=== PATIENT | male | born 1945 | race Caucasian/White ===

== ENCOUNTER → 2019-04-23 10:07 | Outpatient (BNVA) | payer MEDICARE, SELFPAY | PROVIDERS: Family Provider Family Medicine; PCP Family Medicine; Visit Provider Internal Medicine Nephrology | DX: N18.4 Chronic kidney disease, stage 4 (severe) (principal) | CPT/HCPCS: 80069; 82044; 82310; 83970 ==

== ENCOUNTER → 2019-06-16 11:12 | Day surgery (SDC) | payer MEDICARE, SELFPAY ==
[2019-06-16] VITALS (7 sets, daily range): BP systolic 131–189; BP diastolic 84–109; PULSE 55–63; RESP 16–18; TEMP 36.5; O2SAT 99–100; BMI 17.4
--- NOTE | 2019-06-16 11:43 | PC.NURSE ---
PRE OP NOTE THE EXISTING LOOP RECORDER SITE HAS A DIME SIZED BLUE AREA OVER IT. NO DRAINAGE NOTED.
--- NOTE | 2019-06-16 11:50 | PC.NURSE ---
PRE OP NOTE ON INTAKE ASSESSMENT THE PATIENT STATED THAT HE HAD NOT HELD HIS ELIQUIS. DR PENA WAS NOTIFIED AND STATED THAT IS WAS OK TO PROCEED WITH THE PROCEDURE.
--- NOTE | 2019-06-16 11:53 | PC.NURSE ---
PRE OP NOTE DR PENA CALLED THIS NURSE BACK AND STATED THAT THE PATIENT SHOULD HAVE BEEN TOLD TO HOLD THEIR ELIQUIS THIS AM. HE STATED TO HOLD OFF ON TAKING THE PATIENT TO THE SHEEP SHEARER UNTIL HE TALKS TO HIM.
--- NOTE | 2019-06-16 12:00 | PC.NURSE ---
PRE OP NOTE DR PENA HERE TO SPEAK TO THE PATIENT. WILL PROCEDURE WITH THE REMOVAL.
--- NOTE | 2019-06-16 12:00 | PC.NURSE ---
PRE OP NOTE
--- NOTE | 2019-06-16 12:29 | P.OP_ITS ---
Operative Report Date of procedure: June 16, 2019 Pre-op Diagnosis: ICM placement, skin erosion with a focal cellulitis Post-op diagnosis: same Post-op Findings: The skin was eroded. Minimal inflammation. No abscess in the ICD pocket. Procedure Done: Explantation of the ICM Implants: The ICM was extracted from the pocket with a small rogelio in the skin Specimens removed/disposition: Reveal LINQ Model number: [id number] Serial number: [id number] Make: Medtronic Date of implantation 06/06/2017 Pathology: none sent Surgeon: Clintno Clark Machinery Erector: Karlie Bañuelos Anesthesia: Local (1% lidocaine) Estimated blood loss (mL): 0 Tourniquet time (min): 0 IV fluids (mL): 0 Complications: None Findings: The device was eroding the skin. There was some focal cellulitis. No pus collection or any discharges noted Condition: stable Disposition: other (Home) Brief History: This is a 74-year-old white male who had a ICM placement on 06/06/2017 for recurrent syncope. He presented to the office on recently with complaints of some redness of the skin at the ICM insertion site. The device was bulging out with some skin erosion. Also had features of focal cellulitis. He was prescribed Keflex at the office. He did not have any fever or chills. I was consulted to remove this device. Patient did not have any other specific complaints. Procedure: Patient was brought to the cardiac Cnc Mill And Lathe Operator. The ICM incision site was cleaned and draped in a sterile fashion. 1% Xylocaine was used as a local anesthetic agent. The ICM was extracted from the subcutaneous pocket. There was a focal area of skin erosion. The pocket copiously irrigated with vancomycin solution. Minimal oozing of blood was controlled with manual pressure. After complete hemostasis, triple antibiotic ointment was applied locally. Sterile gauze dressing was given. Patient tolerated the procedure well and there were no complications
--- NOTE | 2019-06-16 12:30 | PC.NURSE ---
Procedure complete Loop recorder removed and pt back to room. Dressed with sterile dressing per Dr Clark orders. Pt tolerated well, no c/o pain. Will monitor.
[2019-06-16] MEDS: isosorbide mononitrate ER 30 mg Tablet 15 MG PO (13:04)
--- NOTE | 2019-06-16 14:47 | PC.NURSE ---
Discharge instructions Discharge instructions given to patient at this time, verbalized understanding. Dressing to L subclavian incision removed and redressed per Dr Clark's orders. No bleeding or hematoma noted. Pt walked to [facility] and discharged home via private vehicle.
== END | disposition home or self-care (01) ==
PROVIDERS: Family Provider Family Medicine; PCP Family Medicine; Visit Provider Internal Medicine Cardiovascular Disease
PROC: (CPT 33286; principal; 2019-06-16 12:00)
DX: T82.7XXA Infection and inflammatory reaction due to other cardiac and vascular devices, implants and grafts, initial encounter (principal); I48.91 Unspecified atrial fibrillation; N40.0 Benign prostatic hyperplasia without lower urinary tract symptoms; E03.9 Hypothyroidism, unspecified; I12.9 Hypertensive chronic kidney disease with stage 1 through stage 4 chronic kidney disease, or unspecified chronic kidney disease; N18.9 Chronic kidney disease, unspecified; F32.9 Major depressive disorder, single episode, unspecified; Z82.49 Family history of ischemic heart disease and other diseases of the circulatory system; F17.210 Nicotine dependence, cigarettes, uncomplicated
CPT/HCPCS: 12345; 33284; C1769; J2001; J7050

== ENCOUNTER → 2019-07-21 09:25 | Outpatient (BNVA) | payer MEDICARE, SELFPAY | PROVIDERS: Family Provider Family Medicine; PCP Family Medicine; Visit Provider Internal Medicine | DX: N18.3 Chronic kidney disease, stage 3 (moderate) (principal) | CPT/HCPCS: 80069; 81000; 82044; 82310; 83970; 84460 ==

== ENCOUNTER 2019-07-28 20:29 | Emergency (ER) | payer MEDICARE, SELFPAY ==
[2019-07-28 20:33] VITALS: BP 155/84; PULSE 84; RESP 18; TEMP 36.6; O2SAT 100; BMI 17.5
--- NOTE | 2019-07-28 20:34 | XR_ITS ---
WS: [id number] PORTABLE CHEST HISTORY: high bp COMPARISON: 05/01/2017 Pulmonary hyperexpansion. No pneumonia or mass. Normal vasculature. No pleural effusion or pneumothor ax. Cardiac size: Normal. Mediastinum/Aorta: Ectatic aorta. Partial calcification at the arch. No osseous abnormality seen. XR/XR chest 1V portable [id number] IMPRESSION: 1. Chronic emphysema with no pneumonia. 2. Partially calcified aorta.
--- NOTE | 2019-07-28 20:36 | W.ED.GENADLT ---
HPI - General Adult General: Chief complaint: General Medical Stated complaint: high bp Time Seen by Provider: 07/28/19 20:33 Source: patient Mode of arrival: ambulatory Limitations: no limitations History of Present Illness: HPI narrative: 74-year-old male patient comes in today for complaints of headache with elevated blood pressure. Patient had a elevated blood pressure of 190 systolic and a headache with it. Patient had not taken his blood pressure medication yet he took his medication and then came to the hospital. Patient reports that he continues to have a headache with the pain of 7 out of 10. When asked if patient want something for his pain he did request something. Patient has a history of end-stage renal failure, depression, allergic rhinitis, neuropathy, hypertension. Patient appears chronically ill. Patient appears in mild pain. Associated symptoms: Reports headache(s) Review of Systems General: Reports: 10 or more systems reviewed and unremarkable except in HPI and below Neuro: Reports: headache [facility] ED PFSH: Social History Smoking and tobacco status: current every day smoker History of recent travel: No Physical Exam Const: COMMON NORMALS: no apparent distress and oriented x3 GENERAL APPEARANCE: cooperative HENMT: COMMON NORMALS: normocephalic, TM's normal bilaterally and external nose normal HEAD & SCALP: normal to inspection and normocephalic NOSE: external nose normal TYMPANIC MEMBRANE: TM's normal bilaterally MOUTH: oral and palatal mucosa normal THROAT: posterior oropharynx normal Eye: GENERAL EYE: normal appearance of both eyes Neck/C-Spine: COMMON NORMALS: full ROM Lymph: LYMPHATIC: no lymphadenopathy noted Chest: COMMONS NORMALS: inspection of chest normal Resp: COMMON NORMALS: normal respiratory effort EFFORT & INSPECTION: Yes able to speak in complete sentences Cardio: COMMON NORMALS: regular rate and regular rhythm RATE: regular rate RHYTHM: regular rhythm GI: COMMON NORMALS: non-tender : COMMON NORMALS: Yes no CVA tenderness BLADDER/KIDNEY EXAM: Yes no CVA tenderness Back/Pelvis: COMMON NORMALS: no CVA tenderness and thoracic and lumbar spine normal to inspection Extremity: COMMON NORMALS: normal to inspection Neuro: COMMON NORMALS: oriented x3 and moves all extremities Psych: COMMON NORMALS: mental status grossly normal and cooperative Skin: COMMON NORMALS: no rashes or lesions noted GENERAL SKIN EXAM: no rashes or lesions noted Course Vital Signs: Vital signs: Vital Signs Temperature 97.8 F 07/28/19 20:33 Pulse Rate 84 07/28/19 20:33 Respiratory Rate 18 07/28/19 20:33 Blood Pressure 155/84 07/28/19 20:33 Pulse Oximetry 100 07/28/19 20:33 MDM - General Adult MDM Narrative: Medical decision making narrative: Patient came in tonight for concerns of high blood pressure and headache. Exam noted no focal neural deficits. Patient moves all extremities well. Abdomen soft nontender. Auscultation of heart tones was normal. Skin is warm and dry. Vital signs are normal except for elevated blood pressure. EKG showed a sinus rhythm with some left ventricular hypertrophy. Chest x-ray noted emphysema. CT scan of the head showed no acute abnormalities. Laboratory values showed some renal dysfunction with a creatinine 3.3 which seems to be patient's baseline. Blood glucose was 120. Patient was anemic with 8.4 and 26 hemoglobin probably related to patient's chronic kidney disease. Troponin was slightly elevated in the 40s we repeated the second 1 in 2 hours and it dropped to the mid 30s. With a delta being negative. Discussed with patient the abnormalities of his labs and recommendations for treatment and need for follow-up. Patient reported understanding agreed to plan. Differential diagnosis included ACS, CVA, intracranial hemorrhage, chronic kidney disease, malignant hypertension, emergent hypertensive crisis. Patient felt better and had resolution of headache with better control of blood pressure prior to discharge. Lab Data: Labs: Lab Results 07/28/19 07/28/19 07/28/19 Range/Units 20:43 20:43 20:43 WBC 5.3 (4.0-10.0) 10^3/ uL RBC 2.60 L (4.1-5.3) 10^6/u L Hgb 8.4 L (11.7-16.6) g/dL Hct 26.6 L (42.0-52.0) % MCV 102.3 H (80-94) fL MCH 32.3 (28.0-34.0) pg MCHC 31.6 (30.0-36.0) g/dL RDW 12.4 (12.1-15.1) % Plt Count 165 (130-400) 10^3/c mm MPV 10.3 (7.4-10.4) fL Neut % (Auto) 60.6 % Lymph % (Auto) 24.8 % [place] % (Auto) 10.2 % Eos % (Auto) 4.0 % Baso % (Auto) 0.2 % Neut # (Auto) 3.2 (1.8-7.7) 10^3/u L Lymph # (Auto) 1.3 (0.8-4.8) 10^3/u L [place] # (Auto) 0.5 (0.2-0.9) 10^3/u L Eos # (Auto) 0.2 (0.0-0.8) 10^3/u L Baso # (Auto) 0.0 (0.0-0.1) 10^3/u L Nucleated RBC % (a uto) 0 % Nucleated RBCs # 0.0 /100WBC Sodium 139 (136-145) mmol/L Potassium 4.5 (3.5-5.1) mmol/L Chloride 107 (98-107) mmol/L Carbon Dioxide 19 L (22-29) mmol/L Anion Gap 17.5 (5-19) BUN 46 H (8-23) mg/dL Creatinine 3.3 H (0.7-1.2) mg/dL Glucose 120 H (65-115) mg/dL Calculated Osmolal ity 287 (285-295) mOsm/k g Calcium 9.3 (8.5-10.5) mg/dL Total Bilirubin 0.2 (0.15-1.2) mg/dL AST 18 (0-40) U/L ALT 11 (0-41) U/L Alkaline Phosphata se 60 (40-130) IU/L Troponin T Baselin e 40 H (0-15) ng/mL Troponin T 120 Min [place] (0-15) ng/mL Total Protein 6.5 L (6.6-8.7) g/dL Albumin 4.2 (3.5-5.2) g/dL Globulin 2.3 (1.3-4.6) g/dL 07/28/19 Range/Units 22:36 WBC (4.0-10.0) 10^3/ uL RBC (4.1-5.3) 10^6/u L Hgb (11.7-16.6) g/dL Hct (42.0-52.0) % MCV (80-94) fL MCH (28.0-34.0) pg MCHC (30.0-36.0) g/dL RDW (12.1-15.1) % Plt Count (130-400) 10^3/c mm MPV (7.4-10.4) fL Neut % (Auto) % Lymph % (Auto) % [place] % (Auto) % Eos % (Auto) % Baso % (Auto) % Neut # (Auto) (1.8-7.7) 10^3/u L Lymph # (Auto) (0.8-4.8) 10^3/u L [place] # (Auto) (0.2-0.9) 10^3/u L Eos # (Auto) (0.0-0.8) 10^3/u L Baso # (Auto) (0.0-0.1) 10^3/u L Nucleated RBC % (a uto) % Nucleated RBCs # /100WBC Sodium (136-145) mmol/L Potassium (3.5-5.1) mmol/L Chloride (98-107) mmol/L Carbon Dioxide (22-29) mmol/L Anion Gap (5-19) BUN (8-23) mg/dL Creatinine (0.7-1.2) mg/dL Glucose (65-115) mg/dL Calculated Osmolal ity (285-295) mOsm/k g Calcium (8.5-10.5) mg/dL Total Bilirubin (0.15-1.2) mg/dL AST (0-40) U/L ALT (0-41) U/L Alkaline Phosphata se (40-130) IU/L Troponin T Baselin e (0-15) ng/mL Troponin T 120 Min [place] 35.79 H (0-15) ng/mL Total Protein (6.6-8.7) g/dL Albumin (3.5-5.2) g/dL Globulin (1.3-4.6) g/dL Imaging Data^: CT Head: Attestation: I personally reviewed and interpreted this imaging study as follows: (no acute changes) CXR: Attestation: I personally reviewed and interpreted this imaging study as follows: (no infiltrate, emphysema noted) EKG Data^: EKG 1: Attestation: I personally reviewed and interpreted this EKG as follows: (2208, sinus rhythm, regular rate @ 60 bpm, no ectopy, no ST elevation, probable left ventricle enlargement) Computer generated interpretation: Head CT 07/28/19 20:44 IMPRESSION: 1. No visible evidence of acute intracranial pathologic process. 2. 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 3. Small vessel ischemic disease. 4. Atrophic changes greater than that anticipated for patient's chronological age. 5. Cerebral arterial sclerosis. Radiation Dose CTDIVOL = (mGy): DLP = 818.94 (mGy-cm) Discharge Plan Discharge Patient Disposition: Home, Self-Care Clinical Impression: HTN (hypertension) Qualifiers: Hypertension type: unspecified Qualified Code(s): I10 - Essential (primary) hypertension CKD (chronic kidney disease) Qualifiers: Chronic kidney disease stage: stage 4 (severe) Qualified Code(s): N18.4 - Chronic kidney disease, stage 4 (severe) Condition: Stable Prescriptions: No Action gabapentin 400 mg capsule 400 mg PO TID Qty: 90 RF: 4 albuterol sulfate [ProAir HFA] 90 mcg/actuation HFA aerosol inhaler 2 puff INHALATION Q6H PRN (Reason: Shortness Of Breath) Qty: 8.5 RF: 3 levothyroxine 125 mcg capsule 125 mcg PO QDAY RF: 0 trazodone 50 mg tablet 50 mg PO QDAY RF: 0 metoprolol succinate 25 mg tablet extended release 24 hr 37.5 mg PO DAILY RF: 0 docusate sodium 100 mg capsule 100 mg PO QDAY PRN (Reason: Constipation) RF: 0 cetirizine [Zyrtec] 10 mg tablet 5 mg PO QDAY RF: 0 omeprazole 40 mg capsule,delayed release(DR/EC) 40 mg PO QDAY RF: 0 testosterone cypionate 200 mg/mL kit 200 mg IM .q 10 days RF: 0 sodium bicarbonate 650 mg tablet 650 mg PO QDAY RF: 0 duloxetine 60 mg capsule,delayed release(DR/EC) 60 mg PO QDAY RF: 0 ondansetron HCl 4 mg tablet 4 mg PO Q6H RF: 0 fluticasone propionate 50 mcg/actuation spray,suspension 1 spray INTRANASAL QDAY RF: 0 nitroglycerin [Nitrostat] 0.4 mg tablet, sublingual 0.4 mg SUBLINGUAL DIRECTED RF: 0 magnesium oxide 400 mg magnesium capsule 400 mg PO BID RF: 0 calcium carbonate 600 mg calcium (1,500 mg) tablet 600 mg PO QDAY RF: 0 megestrol 400 mg/10 mL (40 mg/mL) suspension 100 mg PO QID PRN (Reason: Weight Gain) RF: 0 Eliquis 2.5 mg tablet 2.5 mg PO BID Qty: 60 RF: 0 isosorbide mononitrate 30 mg tablet extended release 24 hr 15 mg PO BID Qty: 90 RF: 3 buspirone 15 mg tablet 15 mg PO TID Qty: 90 RF: 2 tamsulosin 0.4 mg capsule 0.4 mg PO BID Qty: 60 RF: 12 finasteride 5 mg tablet 5 mg PO QDAY Qty: 30 RF: 12 Discharge Orders: Discharge Order (Routine); Ordered 07/28/19 Ordered By: Ankush Lauren Referrals: María Carvajal MD [Primary Care Provider] - Discharge Diet: Usual diet Discharge Activity: Resume usual activity Patient Instructions: Hypertension (ED) Activity Restrictions/Additional Instructions: Continue routine medications. Use acetaminophen, 650 mg, every 6-8 hours as needed for pain. Healthy diet and activity. Follow-up with primary care in 1 week. Return to the ER for worsening symptoms, chest pain, shortness of breath. Coding Level of Care Code ED Ice Cream Mixer for Maria Antonia Fwd Exam Comprehensive
--- NOTE | 2019-07-28 20:44 | CTR_ITS ---
PROCEDURE INFORMATION: Exam: CT Head Without Contrast Exam date and time: 07/28/2019 8:45 PM Age: 74 years old Clinical indication: Pain; Other: High BP; Headache; Additional info: Headache, hypertension TECHNIQUE: Imaging protocol: Computed tomography of the head without contrast. Total DLP: 818.94 mGy-cm Radiation optimization: All CT scans at this facility use at least one of these dose optimization techniques: automated exposure control; mA and/or kV adjustment per patient size (includes targeted exams where dose is matched to clinical indication); or iterative reconstruction. COMPARISON: CT head wo con* [id number] 05/01/2017 11:30 AM FINDINGS: Brain: Old tiny lacunar infarct right caudate nucleus and anterior limb of the right internal capsule. Moderate small vessel ischemic disease with senile periventricular leukomalacia. Cerebral and cerebral atrophy with ventricular dilatation slightly greater than that anticipated for patient's chronological age. No visible intracranial hemorrhagic event. Ventricles: No ventriculomegaly. Bones/joints: Unremarkable. No acute fracture. Sinuses: Mild chronic ethmoid sinusitis. No visible evidence of active paranasal sinus disease. Mastoid air cells: Visualized mastoid air cells are well aerated. Soft tissues: Unremarkable. Vasculature: Cerebral arterial sclerosis. CT/CT head wo con* [id number] IMPRESSION: 1. No visible evidence of acute intracranial pathologic process. 2. 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 3. Small vessel ischemic disease. 4. Atrophic changes greater than that anticipated for patient's chronological age. 5. Cerebral arterial sclerosis. Radiation Dose CTDIVOL = (mGy): DLP = 818.94 (mGy-cm)
[2019-07-28 20:55] LABS: Basophils % 0.2 %; Eosinophils # 0.2 10^3/uL (0.0-0.8); Hematocrit 26.6 % (42.0-52.0); Hemoglobin 8.4 g/dL (11.7-16.6); Lymphocytes # 1.3 10^3/uL (0.8-4.8); Lymphocytes % 24.8 %; Mean Corpuscular HGB Conc 31.6 g/dL (30.0-36.0); Mean Corpuscular Hemoglobin 32.3 pg (28.0-34.0); Mean Corpuscular Volume 102.3 fL (80-94); Mean Platelet Volume 10.3 fL (7.4-10.4); Monocytes # 0.5 10^3/uL (0.2-0.9); Monocytes % 10.2 %; Neutrophils # 3.2 10^3/uL (1.8-7.7); Neutrophils % 60.6 %; Nucleated Red Blood Cells % 0 %; Platelet Count 165 10^3/cmm (130-400); Red Cell Distribution Width 12.4 % (12.1-15.1); White Blood Count 5.3 10^3/uL (4.0-10.0)
[2019-07-28 21:12] LABS: Alanine Aminotransferase 11 U/L (0-41); Albumin Level 4.2 g/dL (3.5-5.2); Alkaline Phosphatase 60 IU/L (40-130); Anion Gap 17.5 (5-19); Aspartate Amino Transferase 18 U/L (0-40); Blood Urea Nitrogen 46 mg/dL (8-23); Calcium 9.3 mg/dL (8.5-10.5); Carbon Dioxide 19 mmol/L (22-29); Chloride 107 mmol/L (98-107); Globulin 2.3 g/dL (1.3-4.6); Glucose 120 mg/dL (65-115); Osmolality Calculated 287 mOsm/kg (285-295); Potassium 4.5 mmol/L (3.5-5.1); Sodium 139 mmol/L (136-145); Total Bilirubin 0.2 mg/dL (0.15-1.2); Total Protein 6.5 g/dL (6.6-8.7)
[2019-07-28 21:14] LABS: Troponin(5th) Baseline 40 ng/mL (0-15)
--- NOTE | 2019-07-28 22:35 | ECG_ITS ---
Measurements Intervals [place] Rate: 60 P: 68 SC: 128 QRS: 76 QRSD: 81 T: 80 QT: 411 QTc: 414 SINUS RHYTHM POSSIBLE LEFT ATRIAL ENLARGEMENT [-0.1mV P WAVE IN V1/V2] POSSIBLE LEFT VENTRICULAR HYPERTROPHY [VOLTAGE CRITERIA PLUS LAE OR QRS WIDENING] Compared to ECG 05/01/2017 14:28:04 No significant changes Electronically Signed On 07-29-2019 21:19:42 CDT by Amanda Moreno M.D. [email or web address]
[2019-07-28 23:03] LABS: Troponin 5 2HR 35.79 ng/mL (0-15)
[2019-07-28 23:16] VITALS: BP 206/68; PULSE 62; RESP 18; O2SAT 99
[2019-07-28 23:18] LABS: Troponin 5 2HR Delta -4.21 ABS# (0-10)
== END 2019-07-28 23:16 | disposition home or self-care (01) ==
PROVIDERS: Emergency Provider Nurse Practitioner Family; Family Provider Family Medicine; PCP Family Medicine
DX: I12.9 Hypertensive chronic kidney disease with stage 1 through stage 4 chronic kidney disease, or unspecified chronic kidney disease (principal); N18.4 Chronic kidney disease, stage 4 (severe); Z79.01 Long term (current) use of anticoagulants; F17.210 Nicotine dependence, cigarettes, uncomplicated; R51 Headache
CPT/HCPCS: 12345; 36415; 70450; 71045; 80053; 84484; 85025; 93005; 99281; 99283

== ENCOUNTER → 2019-09-02 08:43 | Outpatient (BNVA) | payer MEDICARE, SELFPAY | PROVIDERS: Family Provider Family Medicine; Visit Provider Internal Medicine Nephrology | DX: N18.4 Chronic kidney disease, stage 4 (severe) (principal) | CPT/HCPCS: 80069; 82310; 83970; 85025 ==

== ENCOUNTER → 2019-09-16 07:48 | Outpatient (BNVA) | payer MEDICARE, SELFPAY | PROVIDERS: Family Provider Family Medicine; PCP Family Medicine; Visit Provider Urology | DX: N40.1 Benign prostatic hyperplasia with lower urinary tract symptoms; N52.1 Erectile dysfunction due to diseases classified elsewhere; N40.0 Benign prostatic hyperplasia without lower urinary tract symptoms; Z12.5 Encounter for screening for malignant neoplasm of prostate; R79.89 Other specified abnormal findings of blood chemistry | CPT/HCPCS: 81001 ==

== ENCOUNTER → 2020-01-18 13:17 | Outpatient (BNVA) | payer MEDICARE, SELFPAY | PROVIDERS: Family Provider Family Medicine; PCP Family Medicine; Visit Provider Internal Medicine Nephrology | DX: E03.9 Hypothyroidism, unspecified (principal) | CPT/HCPCS: 80053; 80061; 80069; 82043; 82310; 83970; 84443; 85025 ==

== ENCOUNTER → 2020-02-02 10:14 | Outpatient (BNVA) | payer MEDICARE, SELFPAY | PROVIDERS: Family Provider Family Medicine; PCP Family Medicine; Visit Provider Registered Nurse | DX: N18.4 Chronic kidney disease, stage 4 (severe) (principal) | CPT/HCPCS: 80048 ==

== ENCOUNTER → 2020-02-21 09:00 | Outpatient (BNVA) | payer MEDICARE, SELFPAY | PROVIDERS: Family Provider Family Medicine; PCP Family Medicine; Visit Provider Internal Medicine Nephrology | DX: N18.9 Chronic kidney disease, unspecified (principal) | CPT/HCPCS: 80048 ==

== ENCOUNTER → 2020-03-31 14:30 | Outpatient (BNVA) | payer MEDICARE, SELFPAY | PROVIDERS: Family Provider Family Medicine; PCP Family Medicine; Visit Provider Nurse Practitioner Family | DX: D64.9 Anemia, unspecified (principal); I10 Essential (primary) hypertension; Z79.899 Other long term (current) drug therapy | CPT/HCPCS: 80053; 82607; 82728; 82746; 83550; 85025 ==

== ENCOUNTER → 2020-04-12 09:00 | Outpatient (BNVA) | payer MEDICARE, SELFPAY | PROVIDERS: Family Provider Family Medicine; PCP Family Medicine; Visit Provider Nurse Practitioner Family | DX: E87.5 Hyperkalemia (principal); D64.9 Anemia, unspecified; N18.9 Chronic kidney disease, unspecified | CPT/HCPCS: 80048; 85025 ==

== ENCOUNTER → 2020-05-11 11:33 | Outpatient (BNVA) | payer MEDICARE, SELFPAY | PROVIDERS: Family Provider Family Medicine; PCP Family Medicine; Visit Provider Internal Medicine Nephrology | DX: N18.4 Chronic kidney disease, stage 4 (severe) (principal) | CPT/HCPCS: 80069; 82043; 82306; 82310; 83970; 85025 ==

== ENCOUNTER → 2020-06-16 11:25 | Day surgery (SDC) | payer MEDICARE, SELFPAY ==
[2020-06-16] VITALS (10 sets, daily range): BP systolic 149–195; BP diastolic 69–104; PULSE 56–63; RESP 18; TEMP 36.2–37.2; O2SAT 98–100
[2020-06-16] MEDS: sodium chloride 0.9% (100 ml) 100 ML (13:51)
== END ==
PROVIDERS: PCP Family Medicine; Visit Provider Family Medicine
DX: D64.9 Anemia, unspecified (principal)
CPT/HCPCS: 36415; 36430; 86850; 86900; 86920; P9016; P9040

== ENCOUNTER 2020-08-15 17:58 | Observation (INO) | payer MEDICARE, SELFPAY ==
[2020-08-15] VITALS (7 sets, daily range): BP systolic 142–161; BP diastolic 72–84; PULSE 70–76; RESP 15–20; TEMP 36.1–37.1; O2SAT 96–100; BMI 18.1
--- NOTE | 2020-08-15 18:14 | ED_ITS ---
HPI - Recheck/Abnormal Lab/Rx General: Chief Complaint: Recheck/Abnormal Lab/Rx Stated Complaint: Sent From Dr. Castaneda For Low Blood Count Time Seen by Provider: 08/15/20 18:07 Source: patient Mode of arrival: ambulatory Limitations: no limitations History of Present Illness: HPI narrative: 75-year-old male who states that he went and saw his private chef and had his blood drawn this morning and was called and told that his hemoglobin was 6.5 and he did come to the hospital and get transfused. He states he has had had some generalized weakness. He is stage IV kidney disease and is not on dialysis. He states he has had 3-4 blood transfusion in the past last was 3 months ago. Denies any blood in the stool or vomiting blood. He is normotensive here. Review of Systems Const: Denies: fever(s), chills, body aches or change in appetite Eyes: Denies: blurry vision or eye discomfort ENMT: Denies: throat pain or dental pain Card: Denies: chest pain Resp: Denies: dyspnea GI: Denies: abdominal pain, nausea, vomiting or diarrhea : Denies: dysuria Musc: Denies: neck pain or back pain Skin/Breast: Denies: rash Neuro: Denies: headache(s) Psych: Denies: depression [place]/Lymph: Denies: easy bruising All/Imm: Denies: urticaria PFSH ED PFSH: Medical History (Updated 08/15/20 @ 20:25 by Austyn Morris MD) AAA (abdominal aortic aneurysm) Atrial fibrillation BPH (benign prostatic hyperplasia) BPH NOS w ur obs/LUTS Chronic migraine CKD (chronic kidney disease) Depression Erectile dysfunction HTN (hypertension) Hypogonadism Hypothyroidism Surgical History History of loop recorder History of pancreatic surgery Biopsy Previous back surgery S/P cholecystectomy Family History Father , 67 y/o Heart disease Myocardial infarction Mother Arthritis Depression Anxiety Hypertension Hearing loss Social History Smoking and tobacco status: current every day smoker Second hand smoke exposure: Yes Alcohol intake: current Alcohol intake frequency: holidays/special occasions only Adopted: No Caregiver/support person: No Lives independently: Yes Marital status: / Current occupational status: retired History of recent travel: No Current gender identity: Male Physical Exam Const: COMMON NORMALS: no acute distress, patient oriented x3 and healthy appearing HENMT: COMMON NORMALS: normocephalic and atraumatic HEAD & SCALP: normocephalic and atraumatic Eye: COMMON NORMALS: Equal, round and reactive pupils present and EOMs intact bilaterally PUPIL: Yes Equal, round and reactive pupils present Neck/C-Spine: COMMON NORMALS: full ROM and supple Chest: COMMONS NORMALS: normal inspection of the chest and normal palpation of entire chest wall Resp: COMMON NORMALS: normal respiratory effort, No retractions, No use of accessory muscles and clear to auscultation bilaterally AUSCULTATION: clear to auscultation bilaterally Cardio: COMMON NORMALS: regular rate, regular rhythm and No murmurs present (Cardio) RATE: regular rate RHYTHM: regular rhythm GI: COMMON NORMALS: Normal to inspection, nondistended, normoactive bowel sounds present, Soft to palpation, non-tender and no masses PALPATION: Yes Soft to palpation Extremity: COMMON NORMALS: normal to inspection and full ROM Neuro: COMMON NORMALS: patient oriented x3, moves all extremities and no focal motor deficits Psych: COMMON NORMALS: mental status grossly normal, Normal thought process present and cooperative THOUGHT PROCESS: Normal thought process present Skin: COMMON NORMALS: no rashes or lesions noted and no wounds GENERAL SKIN EXAM: no rashes or lesions noted Course Vital Signs: Vital signs: Vital Signs Temperature 98.2 F 08/15/20 20:07 Pulse Rate 75 08/15/20 20:07 Respiratory Rate 15 08/15/20 20:07 Blood Pressure 147/80 08/15/20 20:07 Pulse Oximetry 99 08/15/20 20:07 MDM - Recheck/Abnormal Lab/Rx MDM Narrative: Medical decision making narrative: Patient presents here with anemia will require blood transfusion. He has no signs of blood loss here and his blood pressure has been stable. I spoke to the hospitalist will admit for observation at this time. He has been well-appearing here. Lab Data: Labs: Lab Results 08/15/20 08/15/20 08/15/20 Range/Units 18:45 18:45 18:45 WBC 4.8 (4.0-10.0) 10^3/ uL RBC 1.88 L (4.1-5.3) 10^6/u L Hgb 5.7 L* (11.7-16.6) g/dL Hct 18.6 L* (42.0-52.0) % MCV 98.9 H (80-94) fL MCH 30.3 (28.0-34.0) pg MCHC 30.6 (30.0-36.0) g/dL RDW 14.2 (12.1-15.1) % Plt Count 228 (130-400) 10^3/c mm MPV 9.5 (7.4-10.4) fL Neut % (Auto) 59.9 % Lymph % (Auto) 26.9 % [place] % (Auto) 8.4 % Eos % (Auto) 4.2 % Baso % (Auto) 0.4 % Neut # (Auto) 2.85 (1.8-7.7) 10^3/u L Lymph # (Auto) 1.3 (0.8-4.8) 10^3/u L [place] # (Auto) 0.4 (0.2-0.9) 10^3/u L Eos # (Auto) 0.2 (0.0-0.8) 10^3/u L Baso # (Auto) 0.0 (0.0-0.1) 10^3/u L Nucleated RBC % (a uto) 0 % Nucleated RBCs # 0.0 /100WBC Sodium 139 (136-145) mmol/L Potassium 5.1 (3.5-5.1) mmol/L Chloride 111 H (98-107) mmol/L Carbon Dioxide 15 L (22-29) mmol/L Anion Gap 18.1 (5-19) BUN 58 H (8-23) mg/dL Creatinine 4.4 H (0.7-1.2) mg/dL GFR Calculation Not Reportable Glucose 114 (65-115) mg/dL Calculated Osmolal ity 305 H (285-295) mOsm/k g Calcium 8.1 L (8.5-10.5) mg/dL Iron 59 (59-158) ug/dL TIBC 214 mcg/dl % Saturation 27.5 (20-50) % Unsat Iron Binding 155 (112-347) ug/dL Total Bilirubin 0.2 (0.15-1.2) mg/dL AST 12 (0-40) U/L ALT 8 (0-41) U/L Alkaline Phosphata se 55 (40-130) IU/L Total Protein 6.2 L (6.6-8.7) g/dL Albumin 3.6 (3.5-5.2) g/dL Globulin 2.6 (1.3-4.6) g/dL Discharge Plan Discharge Patient Disposition: Admitted As Inpatient Admit Provider: Morteza Kinney Clinical Impression: Anemia Qualifiers: Anemia type: unspecified type Qualified Code(s): D64.9 - Anemia, unspecified Condition: Stable Coding Level of Care Code ED Color Paste Mixing Supervisor for g Fwd Exam Comprehensive
[2020-08-15 18:56] LABS: Basophils % 0.4 %; Eosinophils # 0.2 10^3/uL (0.0-0.8); Eosinophils % 4.2 %; Lymphocytes # 1.3 10^3/uL (0.8-4.8); Lymphocytes % 26.9 %; Mean Corpuscular HGB Conc 30.6 g/dL (30.0-36.0); Mean Corpuscular Hemoglobin 30.3 pg (28.0-34.0); Mean Corpuscular Volume 98.9 fL (80-94); Mean Platelet Volume 9.5 fL (7.4-10.4); Monocytes # 0.4 10^3/uL (0.2-0.9); Monocytes % 8.4 %; Neutrophils # 2.85 10^3/uL (1.8-7.7); Neutrophils % 59.9 %; Nucleated Red Blood Cells % 0 %; Platelet Count 228 10^3/cmm (130-400); Red Blood Count 1.88 10^6/uL (4.1-5.3); Red Cell Distribution Width 14.2 % (12.1-15.1); White Blood Count 4.8 10^3/uL (4.0-10.0)
[2020-08-15 19:00] LABS: Hematocrit 18.6 % (42.0-52.0); Hemoglobin 5.7 g/dL (11.7-16.6)
[2020-08-15 19:17] LABS: Alanine Aminotransferase 8 U/L (0-41); Albumin Level 3.6 g/dL (3.5-5.2); Alkaline Phosphatase 55 IU/L (40-130); Anion Gap 18.1 (5-19); Aspartate Amino Transferase 12 U/L (0-40); Calcium 8.1 mg/dL (8.5-10.5); Carbon Dioxide 15 mmol/L (22-29); Chloride 111 mmol/L (98-107); Globulin 2.6 g/dL (1.3-4.6); Glucose 114 mg/dL (65-115); Potassium 5.1 mmol/L (3.5-5.1); Sodium 139 mmol/L (136-145); Total Bilirubin 0.2 mg/dL (0.15-1.2); Total Protein 6.2 g/dL (6.6-8.7)
[2020-08-15 19:22] LABS: Blood Urea Nitrogen 58 mg/dL (8-23); Osmolality Calculated 305 mOsm/kg (285-295)
[2020-08-15 19:39] LABS: Iron 59 ug/dL (59-158); Percent Saturation 27.5 % (20-50); Total Iron Binding Capacity 214 mcg/dl; Unsaturated Iron Binding 155 ug/dL (112-347)
--- NOTE | 2020-08-15 19:43 | PM.HP ---
Providers/Chief Complaint Admitting Physician: Morteza Kinney MD Primary Care Provider: Miri Hess MD Chief Complaint: Sent From Dr. Castaneda For Low Blood Count History of Present Illness Haim Sharma is a 75 year old male With history of atrial fibrillation chronic anticoagulation with Eliquis, chronic kidney disease stage IV follows with Dr. Castaneda, came from clinic today because of abnormal CBC Hemoglobin 5.7. Apparently Dr. Castaneda's office has been trying to get in touch with him for his low hemoglobin but was not able to get a hold of him today when he followed up with his PCP, anemia was noticed and he was directed to our hospital, Dr. Castaneda was also notified. Patient is stating that for last 2 to 3 weeks he has been feeling extremely tired and weak, presyncopal but never experienced any falls, he has not noticed any hemoptysis, hematemesis, hematochezia, melanotic stools or hematuria. His last blood transfusion was 2 to 3 months ago when he received 2 units PRBC, he did not stop his Eliquis. Recently his atenolol dose was decreased by Dr. Almazan because of his presyncopal event and generalized weakness. He also has history of abdominal aortic aneurysm, EF 60%. Low iron panel noted, BMP reveals bicarb level 15 will check lactic acid, Review of Systems Const: Reports: chills, body aches, change in appetite, fatigue and malaise Eyes: Denies: change in vision ENMT: Denies: throat pain Card: Denies: chest pain Resp: Denies: dyspnea GI: Denies: abdominal pain : Denies: flank pain Musc: Denies: neck pain Skin/Breast: Denies: rash Neuro: Denies: headache(s) Psych: Denies: anxiety Endo: Denies: polyuria Ronn/Lymph: Denies: easy bruising All/Imm: Denies: urticaria Medications/Allergies Home Medications Medication Instructions Recorded Confirmed Last Taken Type calcium carbonate 600 mg calcium 600 mg PO DAILY 05/11/19 08/15/20 08/15/20 History (1,500 mg) tablet nitroglycerin 0.4 mg sublingual 0.4 mg SUBLINGUAL DIRECTED tab 05/11/19 08/15/20 Unknown History tablet albuterol sulfate 90 mcg/actuation 2 puff INHALATION Q6H PRN #8.5 gm 02/03/20 08/15/20 06/15/20 Rx aerosol inhaler amlodipine 5 mg tablet 5 mg PO BID #180 tab 02/03/20 08/15/20 08/15/20 Rx apixaban 2.5 mg tablet 2.5 mg PO BID #180 tab 02/03/20 08/15/20 08/15/20 Rx levothyroxine 150 mcg capsule 150 mcg PO DAILY #30 cap 02/03/20 08/15/20 08/15/20 Rx tamsulosin 0.4 mg capsule 0.4 mg PO BID #60 cap 02/03/20 08/15/20 08/15/20 Rx atenolol 25 mg tablet 12.5 mg PO DAILY #45 tab 06/13/20 08/15/20 08/15/20 Rx buspirone 15 mg tablet 15 mg PO TID tab 06/13/20 08/15/20 08/15/20 History sodium bicarbonate 650 mg tablet 1,300 mg PO TID tab 06/13/20 08/15/20 08/15/20 History finasteride 5 mg PO DAILY 08/15/20 08/15/20 08/15/20 History gabapentin 600 mg PO TID 08/15/20 08/15/20 08/15/20 History hydralazine 25 mg PO TID 08/15/20 08/15/20 08/15/20 History megestrol 100 mg PO QID 08/15/20 08/15/20 Unknown History omeprazole 40 mg PO DAILY 08/15/20 08/15/20 08/15/20 History trazodone 50 mg PO BEDTIME 08/15/20 08/15/20 08/14/20 History Allergies Allergy/AdvReac Type Severity Reaction Status Date / Time No Known Allergies Allergy Verified 08/15/20 16:06 PFSH Acute PFSH: Medical History (Updated 08/15/20 @ 21:01 by Morteza Kinney MD) AAA (abdominal aortic aneurysm) Atrial fibrillation BPH (benign prostatic hyperplasia) BPH NOS w ur obs/LUTS Chronic migraine CKD (chronic kidney disease) Depression Erectile dysfunction HTN (hypertension) Hypogonadism Hypothyroidism Surgical History History of loop recorder History of pancreatic surgery Biopsy Previous back surgery S/P cholecystectomy Family History Father , 67 y/o Heart disease Myocardial infarction Mother Arthritis Depression Anxiety Hypertension Hearing loss Social History Smoking and tobacco status: current every day smoker Second hand smoke exposure: Yes Alcohol intake: current Alcohol intake frequency: holidays/special occasions only Adopted: No Caregiver/support person: No Lives independently: Yes Marital status: / Current occupational status: retired History of recent travel: No Current gender identity: Male Vitals/I&O/Wt Last Vital Signs Temp 97.3 F L 08/15/20 18:02 Pulse 71 08/15/20 18:02 Resp 18 08/15/20 18:02 BP 154/75 08/15/20 18:02 Pulse Ox 96 08/15/20 18:02 Weight last 48 hrs Weight 60.781 kg Physical Exam Narrative: EXAM NARRATIVE: elderly male was laying supine when entered the room, appears stated age Had multiple layers was feeling cold S1, S2 no murmur appreciated Pale complexion, Very pleasant and cooperative during my evaluation Awake alert oriented x3 GCS 15 Abdomen soft nontender No audible stridor or wheezing no acute respiratory distress Appropriate mood and affect No joint swelling Lower extremity no edema gangrene or ulcer Does not look fluid overloaded, Data : 08/15/20 18:45 08/15/20 18:45 A&P Assessment and plan (1) Dizziness: Status: Acute (2) Anemia: Status: Acute Qualifiers: Anemia type: unspecified type Qualified Code(s): D64.9 - Anemia, unspecified (3) Hypothyroidism: Status: Acute Qualifiers: Hypothyroidism type: other Qualified Code(s): E03.8 - Other specified hypothyroidism (4) AAA (abdominal aortic aneurysm): Status: Acute Qualifiers: Presence of rupture: without rupture Qualified Code(s): I71.4 - Abdominal aortic aneurysm, without rupture (5) Atrial fibrillation: Status: Acute Qualifiers: Atrial fibrillation type: permanent Qualified Code(s): I48.21 - Permanent atrial fibrillation (6) Chronic kidney disease, stage IV (severe): Status: Acute Additional A&P Information Acute on chronic macrocytic anemia We will check B12 and folate level, low iron panel noted We will give 2 units PRBC, hemodynamically stable No active bleeding however will hold Eliquis until completion of blood transfusion, please reevaluate Eliquis indication at the time of discharge, patient never experienced any melanotic stools or hematochezia no hematemesis. I do suspect this is secondary to anemia of chronic disease Received blood transfusion 2 units 2 to 3 months ago as well Hypothyroidism: Continue levothyroxine Normal anion gap acidosis: We will check lactic acid no active signs of sepsis: Continue bicarb tablets Atrial fibrillation without RVR: Holding Eliquis, continue atenolol for now Full code Renal dialysis diet DVT prophylaxis contraindicated will use SCDs for now Attestations Medical Necessity Statement*: Anticipating discharge in less than 48 hours will need blood transfusion for acute on chronic macrocytic anemia Time Spent in Patient Care: 40mins Coding Level of Care Code Acute Medical Front Desk Coordinator for Chg Fwd Diagnoses Dizziness R42 Anemia D64.9 Anemia type: unspecified type Hypothyroidism E03.8 Hypothyroidism type: other AAA (abdominal aortic aneurysm) I71.4 Presence of rupture: without rupture Atrial fibrillation I48.21 Atrial fibrillation type: permanent Chronic kidney disease, stage IV (severe) N18.4
--- NOTE | 2020-08-15 20:04 | PC.NURSE ---
1st attempt to call report
--- NOTE | 2020-08-15 20:05 | PC.NURSE ---
Pt resting in bed, alert and oriented x4, denies pain, denies needs, provided warm blanket)
--- NOTE | 2020-08-15 20:31 | PC.NURSE ---
attempt to call report
--- NOTE | 2020-08-15 20:45 | PC.NURSE ---
Report to Alessandra, nurse. Pt alert, oriented x4, steady gait, stand by assist. PT taken to floor with chart to room 259-2. no acute distress
[2020-08-15] MEDS: trazodone 50 mg Tablet PO (21:53)
[2020-08-15] MEDS: hyDRALAzine 25 mg Tablet PO (21:53)
[2020-08-15] MEDS: sodium bicarbonate 650 mg Tablet 1300 MG PO (21:53)
[2020-08-15 22:03] LABS: Folate Level 10.1 ng/mL (4.5-32.2); Vitamin B12 412 pg/mL (232-1245)
[2020-08-15] MEDS: sodium chloride 0.9% 250 ML 10 ML IV (22:30)
[2020-08-16] VITALS (15 sets, daily range): BP systolic 129–174; BP diastolic 54–86; PULSE 58–85; RESP 16–18; TEMP 36.6–37.4; O2SAT 95–99
--- NOTE | 2020-08-16 05:09 | PC.NURSE ---
NURSING NOTE: ADMISSION: AT APPROXIMATELY 2200 LAST EVENING, PT ARRIVED TO ROOM 259 -2 PER W/C. PT IS ALERT AND ORIENTED X4, MOVES ALL EXTREMITIES AND FOLLOWS ALL COMMANDS. PT UP WITH SBA X1 D/T HEMOGLOBIN OF 5.7 UPON ARRIVAL. GAIT IS STEADY WITH ASSIST. PT DENIES PAIN OR WEAKNESS, JUST C/O BEING REALLY SLEEPY. ALL VS AND ASSESSMENTS CHARTED. CURRENTLY RESTING WITH EYES CLOSED, RESP EVEN AND NON LABORED. NO DISTRESS NOTED AT THIS TIME.
[2020-08-16 05:41] LABS: Basophils % 0.4 %; Eosinophils # 0.2 10^3/uL (0.0-0.8); Eosinophils % 4.9 %; Hematocrit 22.4 % (42.0-52.0); Hemoglobin 7.3 g/dL (11.7-16.6); Lymphocytes # 1.3 10^3/uL (0.8-4.8); Lymphocytes % 27.4 %; Mean Corpuscular HGB Conc 32.6 g/dL (30.0-36.0); Mean Corpuscular Hemoglobin 30.4 pg (28.0-34.0); Mean Platelet Volume 9.7 fL (7.4-10.4); Monocytes # 0.4 10^3/uL (0.2-0.9); Monocytes % 9.1 %; Neutrophils # 2.73 10^3/uL (1.8-7.7); Nucleated Red Blood Cells % 0 %; Platelet Count 202 10^3/cmm (130-400); Red Cell Distribution Width 15.4 % (12.1-15.1); White Blood Count 4.7 10^3/uL (4.0-10.0)
[2020-08-16 05:46] LABS: Mean Corpuscular Volume 93.3 fL (80-94)
[2020-08-16] MEDS: atenolol 50 mg Tablet 12.5 MG PO (08:10)
[2020-08-16] MEDS: finasteride 5 mg Tablet PO (08:11)
[2020-08-16] MEDS: pantoprazole DR 40 mg Tablet PO (08:11)
[2020-08-16] MEDS: tamsulosin 0.4 mg Capsule PO (08:11)
[2020-08-16] MEDS: cyanocobalamin 1,000 mcg Tablet 1000 MCG PO (08:11)
[2020-08-16] MEDS: folic acid 1 mg Tablet PO (08:11)
[2020-08-16] MEDS: hyDRALAzine 25 mg Tablet PO (08:11)
[2020-08-16] MEDS: iron complex forte Capsule 1 EACH PO (08:11)
[2020-08-16] MEDS: amlodipine 5 mg Tablet PO (08:11)
[2020-08-16] MEDS: gabapentin 300 mg Capsule PO (08:11)
[2020-08-16] MEDS: sodium bicarbonate 650 mg Tablet 1300 MG PO (08:11)
[2020-08-16] MEDS: calcium carb-vit d 600mg/400unit 1 Tablet 1 EACH PO (10:53)
[2020-08-16] MEDS: levothyroxine 150 mcg Tablet PO (10:53)
--- NOTE | 2020-08-16 13:46 | PM.DCS ---
Discharge Providers Date of Admission: 08/15/20 20:55 Date of Discharge: August 16, 2020 Attending Provider at Admission: Morteza Kinney MD Attending Provider at Discharge: Chante Mathis MD Primary Care Provider: Miri Hess MD Diagnoses at Discharge Discharge Diagnosis (1) Dizziness: Status: Acute (2) Anemia: Status: Acute Qualifiers: Anemia type: unspecified type Qualified Code(s): D64.9 - Anemia, unspecified (3) Hypothyroidism: Status: Acute Qualifiers: Hypothyroidism type: other Qualified Code(s): E03.8 - Other specified hypothyroidism (4) AAA (abdominal aortic aneurysm): Status: Acute Qualifiers: Presence of rupture: without rupture Qualified Code(s): I71.4 - Abdominal aortic aneurysm, without rupture (5) Atrial fibrillation: Status: Acute Qualifiers: Atrial fibrillation type: permanent Qualified Code(s): I48.21 - Permanent atrial fibrillation (6) Chronic kidney disease, stage IV (severe): Status: Acute Reason for Visit Reason for Visit: Sent From Dr. Castaneda For Low Blood Count Hospital Course Hospital Course Haim Sharma is a 75 year old male With history of atrial fibrillation chronic anticoagulation with Eliquis, chronic kidney disease stage IV follows with Dr. Castaneda, came from clinic today because of abnormal CBC Hemoglobin 5.7. Reports that he has had blood transfusion in the past, first one was approximately 3 years ago then again 2- 3 months ago. Etiology of anemia remains uncertain, but may be multifactorial related to chronic kidney disease, mild iron deficiency. Slow GI bleeding cannot be complateley excluded- last colonoscopy 3 yrs ago reportedly normal per patient. He reported dissienss yesterday, npow resolved, received 2 units PRBC, HB improved to 7.2, feels much improved. He is beingd ischarged today in stable condition. FOBT has been ordered, .specuimen bottle provided, he will drop this off at his PCP's office. Alyse to remian on hold until follow up with cardiology in one week. Physical Exam Narrative: EXAM NARRATIVE: GEN: Awake, alert and oriented, no acute distress CVS: S1S2 N RS: CTA B/L Abd: Soft, nt/nd , bs+ ON AWAKE COUNSELOR: no focal neuro deficits Discharge Data Data Completed and Pending: Pending at discharge Category Date Time Status Immunochemical Fe yasmin OCB Stat Lab 08/16/20 12:35 Uncollected Labs from last 24 hours 08/16/20 08/15/20 08/15/20 05:17 19:55 18:45 WBC 4.7 RBC 2.40 L Hgb 7.3 L Hct 22.4 L MCV 93.3 D MCH 30.4 MCHC 32.6 D RDW 15.4 H Plt Count 202 MPV 9.7 Neut % (Auto) 58.0 Lymph % (Auto) 27.4 [place] % (Auto) 9.1 Eos % (Auto) 4.9 Baso % (Auto) 0.4 Neut # (Auto) 2.73 Lymph # (Auto) 1.3 [place] # (Auto) 0.4 Eos # (Auto) 0.2 Baso # (Auto) 0.0 Nucleated RBC % (a uto) 0 Nucleated RBCs # 0.0 Sodium Potassium Chloride Carbon Dioxide Anion Gap BUN Creatinine GFR Calculation Glucose Calculated Osmolal ity Calcium Iron TIBC % Saturation Unsat Iron Binding Total Bilirubin AST ALT Alkaline Phosphata se Total Protein Albumin Globulin Vitamin B12 412 Folate Blood Type O Positive Rho(D) Type Positive / 4+ Antibody Screen Negative Crossmatch See Detail 08/15/20 08/15/20 08/15/20 18:45 18:45 18:45 WBC RBC Hgb Hct MCV MCH MCHC RDW Plt Count MPV Neut % (Auto) Lymph % (Auto) [place] % (Auto) Eos % (Auto) Baso % (Auto) Neut # (Auto) Lymph # (Auto) [place] # (Auto) Eos # (Auto) Baso # (Auto) Nucleated RBC % (a uto) Nucleated RBCs # Sodium 139 Potassium 5.1 Chloride 111 H Carbon Dioxide 15 L Anion Gap 18.1 BUN 58 H Creatinine 4.4 H GFR Calculation Not Reportable Glucose 114 Calculated Osmolal ity 305 H Calcium 8.1 L Iron 59 TIBC 214 % Saturation 27.5 Unsat Iron Binding 155 Total Bilirubin 0.2 AST 12 ALT 8 Alkaline Phosphata se 55 Total Protein 6.2 L Albumin 3.6 Globulin 2.6 Vitamin B12 Folate 10.1 Blood Type Rho(D) Type Antibody Screen Crossmatch 08/15/20 18:45 WBC 4.8 RBC 1.88 L Hgb 5.7 L* Hct 18.6 L* MCV 98.9 H MCH 30.3 MCHC 30.6 RDW 14.2 Plt Count 228 MPV 9.5 Neut % (Auto) 59.9 Lymph % (Auto) 26.9 [place] % (Auto) 8.4 Eos % (Auto) 4.2 Baso % (Auto) 0.4 Neut # (Auto) 2.85 Lymph # (Auto) 1.3 [place] # (Auto) 0.4 Eos # (Auto) 0.2 Baso # (Auto) 0.0 Nucleated RBC % (a uto) 0 Nucleated RBCs # 0.0 Sodium Potassium Chloride Carbon Dioxide Anion Gap BUN Creatinine GFR Calculation Glucose Calculated Osmolal ity Calcium Iron TIBC % Saturation Unsat Iron Binding Total Bilirubin AST ALT Alkaline Phosphata se Total Protein Albumin Globulin Vitamin B12 Folate Blood Type Rho(D) Type Antibody Screen Crossmatch Vitals: Last Vital Signs Temp 98.1 F 08/16/20 11:31 Pulse 58 L 08/16/20 11:31 Resp 17 08/16/20 11:31 BP 136/70 08/16/20 11:31 Pulse Ox 99 08/16/20 11:31 Discharge Plan Discharge Patient Disposition: Home Condition: Stable Prescriptions: New folic acid 1 mg Tablet 1 mg PO DAILY Qty: 0 RF: 0 Ferrex 150 Forte 150-25-1 mg-mcg-mg Capsule 1 ea PO BIDWM Qty: 0 RF: 0 cyanocobalamin (vitamin B-12) [Vitamin B-12] 1,000 mcg Tablet 1,000 mcg PO DAILY Qty: 0 RF: 0 Continued nitroglycerin [Nitrostat] 0.4 mg tablet, sublingual 0.4 mg SUBLINGUAL DIRECTED RF: 0 calcium carbonate 600 mg calcium (1,500 mg) tablet 600 mg PO DAILY RF: 0 sodium bicarbonate 650 mg tablet 1,300 mg PO TID RF: 0 buspirone 15 mg tablet 15 mg PO TID RF: 0 atenolol 25 mg tablet 12.5 mg PO DAILY Qty: 45 RF: 3 levothyroxine 150 mcg capsule 150 mcg PO DAILY Qty: 30 RF: 3 albuterol sulfate [ProAir HFA] 90 mcg/actuation HFA aerosol inhaler 2 puff INHALATION Q6H PRN (Reason: Shortness Of Breath) Qty: 8.5 RF: 3 amlodipine 5 mg tablet 5 mg PO BID Qty: 180 RF: 3 tamsulosin 0.4 mg capsule 0.4 mg PO BID Qty: 60 RF: 12 trazodone 50 mg Tablet 50 mg PO BEDTIME RF: 0 megestrol 400 mg/10 mL (10 mL) Suspension 100 mg PO QID RF: 0 hydralazine 25 mg tablet 25 mg PO TID RF: 0 omeprazole 40 mg capsule,delayed release(DR/EC) 40 mg PO DAILY RF: 0 finasteride 5 mg tablet 5 mg PO DAILY RF: 0 Changed gabapentin 600 mg tablet 300 mg PO TID Qty: 0 RF: 0 Discontinued Eliquis 2.5 mg tablet 2.5 mg PO BID Qty: 180 RF: 3 Discharge Orders: Discharge Order (Routine); Ordered 08/16/20 Ordered By: Chante Sky Ambulatory Orders: Immunochemical Fecal OCB (Routine) Timeframe: 1 Week Location: Determined by Patient Ordered By: Chante Mathis Referrals: Morteza Lomeli MD [Physician] - 1 week Miri Hess MD [Primary Care Provider] - 1 week Discharge Diet: Usual diet Discharge Activity: Resume usual activity Patient Instructions: Opioid Safety Discharge Attestations Time Spent in Discharge Care*: less than 30 min Quality Metrics Clinical Quality Measures During this hospital stay, did patient experience: None Coding Level of Care Code Acute g [facility] note Diagnoses Dizziness R42 Anemia D64.9 Anemia type: unspecified type Hypothyroidism E03.8 Hypothyroidism type: other AAA (abdominal aortic aneurysm) I71.4 Presence of rupture: without rupture Atrial fibrillation I48.21 Atrial fibrillation type: permanent Chronic kidney disease, stage IV (severe) N18.4
--- NOTE | 2020-08-16 14:58 | PC.NURSE ---
pt iv taken out and intake , discharge instructions explained and questions answered. pt taken to exit via wheelchair.
--- NOTE | 2020-08-18 08:48 | PC.RESP ---
SMOKING CESSATION INFORMATION SENT TO PATIENT.
== END 2020-08-16 15:40 | disposition home or self-care (01) ==
LOC: ER 19:24 → MEDSURG 20:25
PROVIDERS: Admitting Provider Internal Medicine; Emergency Provider Emergency Medicine; PCP Family Medicine; Visit Provider Student in an Organized Health Care Education/Training Program
DX: R42 Dizziness and giddiness (principal); D64.9 Anemia, unspecified; E03.8 Other specified hypothyroidism; I71.4 Abdominal aortic aneurysm, without rupture; I48.21 Permanent atrial fibrillation; I12.9 Hypertensive chronic kidney disease with stage 1 through stage 4 chronic kidney disease, or unspecified chronic kidney disease; N18.4 Chronic kidney disease, stage 4 (severe); Z79.01 Long term (current) use of anticoagulants; N40.0 Benign prostatic hyperplasia without lower urinary tract symptoms; F32.9 Major depressive disorder, single episode, unspecified; E03.9 Hypothyroidism, unspecified
CPT/HCPCS: 36415; 36430; 80053; 80069; 82043; 82310; 82607; 82746; 83540; 83550; 83970; 85025; 86850; 86900; 86920; 96360; 99285; G0378; J7050; P9016

== ENCOUNTER → 2020-08-17 11:32 | Outpatient (BNVA) | payer MEDICARE, SELFPAY | PROVIDERS: PCP Family Medicine; Visit Provider Student in an Organized Health Care Education/Training Program | DX: D64.9 Anemia, unspecified (principal) | CPT/HCPCS: 82274; 84311 ==

== ENCOUNTER → 2020-08-22 09:57 | Outpatient (BNVA) | payer MEDICARE, SELFPAY | PROVIDERS: PCP Family Medicine; Visit Provider Nurse Practitioner Family | DX: D64.9 Anemia, unspecified (principal); Z09 Encounter for follow-up examination after completed treatment for conditions other than malignant neoplasm | CPT/HCPCS: 85025 ==

== ENCOUNTER 2020-08-31 06:44 | Outpatient (CLI) | payer MEDICARE, SELFPAY ==
--- NOTE | 2020-08-31 07:15 | USCV_ITS ---
Haim Sharma Age: 75 Gender: M : 1945 Exam Date: 08/31/2020 06:59 Ordering Phys: Morteza Lomeli MD ([email or web address]) Technologist: Mari Loza Exam Location: [facility] [place] Indication: F/U KNOWN AAA HISTORY: Diameter (cm) AP x Transverse x Length Velocity (cm/s) Waveform Prox Aorta: 2.82 x 2.74 x 65.30 Mid Aorta: 2.13 x 2.32 x 53.70 Distal Aorta: 3.96 x 3.64 x 6.34 135.80 Right Iliac Prox: 0.89 x 0.71 x 245.90 Left Iliac Prox: 0.74 x 0.83 x 130.30 Stent Prox Landing x x Aneurysmal Sac Max x x Lt Lat Sac Dim Rt Lat Sac Dim Stent Dist Landing x x Right Iliac Stent x x Left Iliac Stent x x Right Renal Art Left Renal Art FINDINGS: Moderate diffuse plaques in the abdominal aorta moderate to heavy dense irregular plaque in the aneurysmal portion of the aorta Maximum diameter of 3.96 x 3.64 in the distal abdominal aorta Elevated velocity in the right approximately artery with moderate to heavy plaques Mild to moderate plaque on the right proximal common iliac artery CONCLUSIONS Infrarenal, fusiform aneurysm of the abdominal aorta, with a maximum diameter of 3.96 x 3.64 cm. Moderate to heavy dense irregular plaques/calcified thrombus in the distal abdominal aorta. Elevated Doppler velocity in the distal abdominal aorta suggesting greater than 50% stenosis. Moderate to heavy plaque with elevated velocity in the proximal common iliac artery on the right side, suggestive of greater than 60% stenosis. Mild to moderate plaque in the right proximal common iliac artery Meter study from 12/16/2018, there is slight increase in the size of the aneurysm and development of stenosis in the distal abdominal aorta and proximal common iliac artery on the right side Dr Clinton Clark MD [facility] (Electronically Signed) Final Date: 31 Aug 2020 18:52 S
== END 2020-08-31 06:45 | disposition home or self-care (01) ==
PROVIDERS: PCP Family Medicine; Visit Provider Internal Medicine Cardiovascular Disease
DX: I71.4 Abdominal aortic aneurysm, without rupture (principal)
CPT/HCPCS: 93978

== ENCOUNTER → 2020-09-06 09:38 | Outpatient (BNVA) | payer MEDICARE, SELFPAY | PROVIDERS: PCP Family Medicine; Visit Provider Nurse Practitioner Family | DX: D64.9 Anemia, unspecified (principal); N18.4 Chronic kidney disease, stage 4 (severe); I10 Essential (primary) hypertension; Z79.899 Other long term (current) drug therapy | CPT/HCPCS: 85025 ==

== ENCOUNTER → 2020-09-14 08:29 | Outpatient (BNVA) | payer MEDICARE, SELFPAY | PROVIDERS: PCP Family Medicine; Visit Provider Urology | DX: N40.1 Benign prostatic hyperplasia with lower urinary tract symptoms (principal); N52.1 Erectile dysfunction due to diseases classified elsewhere | CPT/HCPCS: 81003 ==

== ENCOUNTER → 2020-09-19 13:33 | Outpatient (BNVA) | payer MEDICARE, SELFPAY | PROVIDERS: PCP Family Medicine; Visit Provider Family Medicine | DX: D64.9 Anemia, unspecified (principal); K62.5 Hemorrhage of anus and rectum; K59.03 Drug induced constipation | CPT/HCPCS: 80053; 83540 ==

== ENCOUNTER → 2020-09-27 06:54 | Day surgery (SDC) | payer MEDICARE, SELFPAY ==
[2020-09-27 07:10] VITALS: BP 156/75; PULSE 76; RESP 18; TEMP 36.6; O2SAT 99
[2020-09-27 07:56] VITALS: BP 170/95; PULSE 63; RESP 18; TEMP 36.4; O2SAT 100
[2020-09-27 08:11] VITALS: PULSE 58; RESP 18; TEMP 36.4; O2SAT 99
[2020-09-27 08:26] VITALS: PULSE 66; RESP 16; TEMP 36.4; O2SAT 99
[2020-09-27 09:26] VITALS: PULSE 65; RESP 18; TEMP 36.1; O2SAT 100
== END ==
PROVIDERS: PCP Family Medicine; Visit Provider Family Medicine
DX: D64.9 Anemia, unspecified (principal)
CPT/HCPCS: 36415; 36430; 86850; 86900; 86920; P9016

== ENCOUNTER → 2020-09-29 10:22 | Outpatient (BNVA) | payer MEDICARE, SELFPAY | PROVIDERS: PCP Family Medicine; Visit Provider Registered Nurse | DX: N18.4 Chronic kidney disease, stage 4 (severe) (principal); D64.9 Anemia, unspecified | CPT/HCPCS: 82728; 83550; 83883; 84155; 84165 ==

== ENCOUNTER → 2020-10-27 10:08 | Outpatient (BNVA) | payer MEDICARE, SELFPAY | PROVIDERS: PCP Family Medicine; Visit Provider Registered Nurse | DX: N18.4 Chronic kidney disease, stage 4 (severe) (principal) | CPT/HCPCS: 80069; 82043; 82306; 82310; 83970; 85025 ==

== ENCOUNTER → 2020-11-03 08:37 | Outpatient (BNVA) | payer MEDICARE, SELFPAY | PROVIDERS: PCP Family Medicine; Visit Provider Surgery | DX: Z20.822 Contact with and (suspected) exposure to COVID-19 (principal); Z11.52 Encounter for screening for COVID-19 | CPT/HCPCS: 87635 ==

== ENCOUNTER 2020-11-08 05:58 | Day surgery (SDC) | payer MEDICARE, SELFPAY ==
[2020-11-06 10:56] VITALS: BMI 17.6
--- NOTE | 2020-11-08 06:11 | P.HP_ITS ---
Same Day Surgery H&P Indication for Procedure/HPI DATE OF PROCEDURE: November 08, 2020 CHIEF COMPLAINT/INDICATIONFOR SURGICAL PROCEDURE: Blood in stool PREOP DIAGNOSIS: Bleeding per rectum PLANNED PROCEDRUE: Operation Date: 11/08/20 07:00 Proposed Procedures p EGD [id number] d50.9 k62.5(Not Applicable) - Fred Ortiz MD s Colonoscopy(Not Applicable) - Fred Ortiz MD This is a pleasant 75 years old gentleman referred to my practice with history of bleeding per rectum.Patient did receive blood transfusions before. He denies history of weight loss or history of colon cancer. Back in 2019 in [place] undergone a colonoscopy and according to the patient there was nothing of significance. He had also a lesion of the stomach that was biopsied and came back as benign per his description. Concomitantly patient does have anemia which as mentioned previously requiring blood transfusion. The patient is referred to me for further work-up including potential diagnostic endoscopies. Patient reports to me that he has history of AAA and He does have follow-ups with that regard as it appears that this aneurysm has been stable. Interim history 11/08/2020 Patient comes today for diagnostic EGD and colonoscopy ROS All systems have been reviewed negative except as per the above or per problem list Medications/Allergies* Home Medications Medication Instructions Recorded Confirmed Type calcium carbonate 600 mg calcium 600 mg PO DAILY 05/11/19 11/08/20 History (1,500 mg) tablet nitroglycerin 0.4 mg sublingual 0.4 mg SUBLINGUAL DIRECTED PRN 05/11/19 11/08/20 History tablet tab buspirone 15 mg tablet 15 mg PO DAILY tab 06/13/20 11/08/20 History sodium bicarbonate 650 mg tablet 1,300 mg PO TID tab 06/13/20 11/08/20 History finasteride 5 mg PO DAILY 08/15/20 11/08/20 History hydralazine 25 mg PO TID 08/15/20 11/08/20 History omeprazole 40 mg PO DAILY 08/15/20 11/08/20 History iron ps seddses-[id number] acid 1 ea PO DAILY 09/27/20 11/08/20 History [Ferrex 150 Forte] trazodone 50 mg PO BEDTIME 09/27/20 11/08/20 History levothyroxine 150 mcg PO DAILY 11/06/20 11/08/20 History tamsulosin 0.4 mg PO DAILY 11/06/20 11/08/20 History Allergies/Adverse Reactions Allergy/AdvReac Type Severity Reaction Status Date / Time No Known Allergies Allergy Verified 11/08/20 06:11 Pertinent History/Comorbid Conditions* Medical History (Updated 09/19/20 @ 10:32 by Miri Hess MD) AAA (abdominal aortic aneurysm) Atrial fibrillation BPH (benign prostatic hyperplasia) BPH NOS w ur obs/LUTS Chronic kidney disease, stage IV (severe) Chronic migraine CKD (chronic kidney disease) Depression Dizziness Erectile dysfunction HTN (hypertension) Hypogonadism Hypothyroidism Surgical History (Updated 06/15/19 @ 18:35 by Morteza Lomeli MD) History of loop recorder History of pancreatic surgery Biopsy Previous back surgery S/P cholecystectomy Family History (Updated 05/11/19 @ 09:39 by Tiana Hollingsworth LPN) Father, 67 y/o Hearing loss Mother Anxiety Mother Arthritis Mother Depression Mother Heart disease Father Myocardial infarction Father Hypertension Mother Social History Smoking and tobacco status: current every day smoker Second hand smoke exposure: Yes Alcohol intake: current Alcohol intake frequency: holidays/special occasions only Adopted: No Caregiver/support person: No Lives independently: Yes Marital status: / Current occupational status: retired History of recent travel: No Current gender identity: Male Pertinent Exam Findings alert, oriented x 3, clear to auscultation bilaterally, regular rate & rhythm and procedure specific exam findings (Abdominal examination nontender nondistended soft) Recommendations Surgery/Procedure today (Diagnostic EGD and colonoscopy) Other Plans: Plan of care; After thorough history and physical examination and reviewing the chart, plan to perform a diagnostic esophagogastroduodenoscopy and diagnostic colonoscopy with possible biopsy and possible polypectomy. I discussed with the patient in detail the risks,benefits,alternatives and indications.The risk of aspiration, bleeding, soft tissue injury, perforation of the stomach/esophagus/colon and other potential concomitant complications were explained to the patient in details also the potential need for Thoracotomy and or Laproscoy/Laparotomy to repair any related complications including but not limited to colectomy and or Closotomy. The patient understood this well and did agree to proceed. Rationale was carefully and clearly discussed with the patient.Appropriate informed consent have been reviewed and signed Verbal and written Instructions were given to the patient for colonoscopy prep Coding Level of Care Code Acute Bagger And Stock Handler Helper for Maria Antonia Brambila
[2020-11-08 06:16] VITALS: BP 146/80; PULSE 64; RESP 14; TEMP 36.7; O2SAT 100
[2020-11-08] MEDS: sodium chloride 0.9% 1,000 ML 30 ML IV (06:29)
--- NOTE | 2020-11-08 06:50 | ANES.PREANE2 ---
Pre-Anesthetic Assessment Pre-Anesthetic Assessment: Height/Weight: Height 1.83 m Weight 58.967 kg Temp Pulse Resp BP Pulse Ox 98.0 F 64 14 146/80 100 11/08/20 06:16 11/08/20 06:16 11/08/20 06:16 11/08/20 06:16 11/08/20 06:16 Preop Diagnosis: Bleeding per rectum Proposed Procedure: Operation Date: 11/08/20 07:00 Proposed Procedures p EGD [id number] d50.9 k62.5(Not Applicable) - Fred Ortiz MD s Colonoscopy(Not Applicable) - Fred Ortiz MD Familial anesthetic complications: none Was Beta Shawn taken within 24 hours: Yes Was Clonidine taken within 24 hours: N/A Last intake: Intake Last Liquid Date 11/07/20 Last Solid Date 11/06/20 Last Intake: 22:30 Social: Social History: Alcohol and Tobacco Packs per day: 1 Pack years: 50 Comment: occ alcohol Exam: Pre-Anes Outpt Exam: alert and oriented x 3 Airway: Submandibular: WNL Cervical ROM: WNL MP: 2 Pulmonary: Pulmonary: Asthma, COPD, AMAYA, Orthopnea and SOB CV/HEM: CV/HEM: Afib, Arrythmia and HTN : : Chronic renal failure Comments: stage 4 Hepatic: Hepatic: None reported GI: GI: None reported Metabolic: Metabolic: Thyroid Musc/skel: Musc/skel: None reported Neuropsych: Neuropsych: None reported Anesthetic Plan: ASA status: 3 Anesthesia: Anesthesia Evaluation and MAC Risk of > 500 ml blood loss (7ml/kg in children): No Meds/Allergies Current Medications: Current Medications Generic Name Dose Route Start Last Admin Trade Name Freq PRN Reason Stop Dose Admin Sodium Chloride 1,000 mls @ 30 ml s/hr 11/08/20 06:15 11/08/20 06:29 Sodium Chloride 0.9% IV 11/09/20 06:14 30 mls/hr .Q24H AZRA Administration PFSH Anesthesia PFSH: Medical History AAA (abdominal aortic aneurysm) Atrial fibrillation BPH (benign prostatic hyperplasia) BPH NOS w ur obs/LUTS Chronic kidney disease, stage IV (severe) Chronic migraine CKD (chronic kidney disease) Depression Dizziness Erectile dysfunction HTN (hypertension) Hypogonadism Hypothyroidism Surgical History History of loop recorder History of pancreatic surgery Biopsy Previous back surgery S/P cholecystectomy Family History Father , 67 y/o Heart disease Myocardial infarction Mother Arthritis Depression Anxiety Hypertension Hearing loss Social History Smoking and tobacco status: current every day smoker Second hand smoke exposure: Yes Alcohol intake: current Alcohol intake frequency: holidays/special occasions only Adopted: No Caregiver/support person: No Lives independently: Yes Marital status: / Current occupational status: retired History of recent travel: No Current gender identity: Male Data Anesthesia Cardiac Studies: No Data to Display
[2020-11-08 07:40] VITALS: BP 103/58; PULSE 58; RESP 16; TEMP 36.3; O2SAT 99
[2020-11-08 07:58] VITALS: BP 116/62; PULSE 64; RESP 18; O2SAT 100
--- NOTE | 2020-11-08 14:08 | ANE.PACU2 ---
Inpatient post-anesthesia follow up: Airway intact: Yes Vital signs: Temperature 97.3 F Pulse Rate 64 Respiratory Rate 18 Blood Pressure 116/62 Pulse Oximetry 100 Oxygen Delivery Me thod Room Air Oxygen Flow Rate Fraction of Inspir ed Oxygen Hydration adequate: Yes Nausea and vomiting: No Pain level: 1 Mental status: Baseline
[2020-11-09 15:10] LABS: H. Pylori / CLO Test Negative
== END 2020-11-08 08:02 | disposition home or self-care (01) ==
PROVIDERS: PCP Family Medicine; Visit Provider Surgery
PROC: 0DJ08ZZ Inspection of Upper Intestinal Tract, Via Natural or Artificial Opening Endoscopic (ICD-10-PCS; CPT 43235; principal; 2020-11-08 07:00)
PROC: 0DJD8ZZ Inspection of Lower Intestinal Tract, Via Natural or Artificial Opening Endoscopic (ICD-10-PCS; CPT 45378; 2020-11-08 07:00)
DX: K62.5 Hemorrhage of anus and rectum (principal); D12.2 Benign neoplasm of ascending colon; K57.30 Diverticulosis of large intestine without perforation or abscess without bleeding; K29.70 Gastritis, unspecified, without bleeding; I48.91 Unspecified atrial fibrillation; N40.1 Benign prostatic hyperplasia with lower urinary tract symptoms; N13.8 Other obstructive and reflux uropathy; E03.9 Hypothyroidism, unspecified; I12.0 Hypertensive chronic kidney disease with stage 5 chronic kidney disease or end stage renal disease; N18.6 End stage renal disease; F17.210 Nicotine dependence, cigarettes, uncomplicated; I10 Essential (primary) hypertension
CPT/HCPCS: 43239; 45380; 87077; 88305; 96360; J2704; J7030

== ENCOUNTER → 2020-11-20 11:58 | Outpatient (BNVA) | payer MEDICARE, SELFPAY | PROVIDERS: PCP Family Medicine; Visit Provider Family Medicine | DX: D64.9 Anemia, unspecified (principal) | CPT/HCPCS: 82607; 83540; 85025 ==

== ENCOUNTER → 2020-11-24 10:21 | Day surgery (SDC) | payer MEDICARE, SELFPAY ==
[2020-11-24] VITALS (10 sets, daily range): BP systolic 163–196; BP diastolic 88–105; PULSE 74–94; RESP 18–99; TEMP 36.4–36.9; O2SAT 97–100; BMI 17.6
[2020-11-24] MEDS: sodium chloride 0.9% (100 ml) 200 ML (15:38)
--- NOTE | 2020-11-24 16:06 | PC.NURSE ---
1355- PT RECEIVED FROM GI DEPARTMENT VIA , REPORT GIVEN BY GEOVANI RUFF RN. PT IN BED WITH CALL LIGHT IN REACH.
== END ==
LOC: OPS 10:25 → GILAB 10:35
PROVIDERS: PCP Family Medicine; Visit Provider Family Medicine
DX: D64.9 Anemia, unspecified (principal)
CPT/HCPCS: 36430; 86850; 86900; 86920; P9016

== ENCOUNTER → 2020-11-30 09:29 | Outpatient (BNVA) | payer MEDICARE, SELFPAY | PROVIDERS: PCP Family Medicine; Visit Provider Registered Nurse | DX: N18.4 Chronic kidney disease, stage 4 (severe) (principal) | CPT/HCPCS: 80069; 82043; 82310; 83970; 85025 ==

== ENCOUNTER 2020-12-21 12:25 | Outpatient (CLI) | payer MEDICARE, SELFPAY ==
[2020-12-21 15:17] LABS: Basophils % 0.3 %; Eosinophils # 0.4 10^3/uL (0.0-0.8); Eosinophils % 5.9 %; Hematocrit 27.1 % (42.0-52.0); Hemoglobin 8.6 g/dL (11.7-16.6); Lymphocytes # 1.3 10^3/uL (0.8-4.8); Lymphocytes % 21.5 %; Mean Corpuscular HGB Conc 31.7 g/dL (30.0-36.0); Mean Corpuscular Hemoglobin 30.8 pg (28.0-34.0); Mean Corpuscular Volume 97.1 fl (80-94); Mean Platelet Volume 10.9 fL (7.4-10.4); Monocytes # 0.6 10^3/uL (0.2-0.9); Monocytes % 10.2 %; Neutrophils # 3.68 10^3/uL (1.8-7.7); Neutrophils % 61.8 %; Nucleated Red Blood Cells % 0 %; Platelet Count 163 10^3/cmm (130-400); Red Blood Count 2.79 10^6/uL (4.1-5.3); Red Cell Distribution Width 14.2 % (12.1-15.1); Reticulocyte % 1.6 % (0.5-2.0)
[2020-12-21 16:08] LABS: Alanine Aminotransferase 8 U/L (0-41); Albumin Level 3.9 g/dL (3.5-5.2); Alkaline Phosphatase 68 IU/L (40-130); Aspartate Amino Transferase 14 U/L (0-40); Blood Urea Nitrogen 53 mg/dL (8-23); Calcium 8.6 mg/dL (8.5-10.5); Carbon Dioxide 17 mmol/L (22-29); Chloride 111 mmol/L (98-107); Ferritin 437 ng/mL (30-400); Globulin 2.4 g/dL (1.3-4.6); Glucose 80 mg/dL (65-115); Iron 75 ug/dL (59-158); Lactate Dehydrogenase 182 U/L (135-225); Osmolality Calculated 301 mOsm/kg (285-295); Percent Saturation 44.3 % (20-50); Sodium 139 mmol/L (136-145); Total Bilirubin 0.2 mg/dL (0.15-1.2); Total Iron Binding Capacity 169 mcg/dl; Total Protein 6.3 g/dL (6.6-8.7); Unsaturated Iron Binding 94 ug/dL (112-347); Vitamin B12 658 pg/mL (232-1245)
[2020-12-21 16:56] LABS: Folate Level 14.8 ng/mL (4.5-32.2)
[2020-12-21 17:14] LABS: Erythrocyte Sedimentation Rate 49 mm/hr (0-10)
[2020-12-21 19:08] LABS: LAB Peripheral Smear Sent for Review
--- NOTE | 2020-12-21 21:13 | ONC CON_ITS ---
Dr. Solis New Patient Note Patient: Haim Sharma Unit #: [id number]: 1945 Dicatated By: Jeo Solis M.D.Date of Visit: Dec 21, 2020 Onc MED New Patient/Consult Referring Physician: SELIN Shelton Chief Complaint: Anemia. History of Present Illness: This is a 75-year-old man with moderate to severe anemia. He has chronic kidney disease, late stage IV to stage V, but not yet on dialysis. He has been chronically anemic dating back to at least December 2015. Numerous subsequent blood counts up until November 2018 had shown hemoglobin levels ranging from 9 to 11 g. As of July 2019 his hemoglobin had further declined to 8.4 g and by June 2020 it had further declined to 7.0 g. He has since then been transfused on multiple occasions. He indicates that since May 2020 he has been transfused a total of 9 units of PRBC. In August 2020 he had been referred to Dr. Ortiz after his hemoglobin had dropped to as low as 5.7 g. He reportedly was having rectal bleeding, but I cannot see where that was ever actually documented in his records and there is no documentation of any stool Hemoccult testing. Furthermore, he does not recall ever having had blood in his stool. He did have EGD and colonoscopy on 11/08/2020. The only finding on the EGD was moderate striped gastritis with no mucosal bleeding. The colonoscopy showed a semipedunculated polyp in the mid ascending colon measuring 2 x 3 mm. A few medium diverticuli were noted in the sigmoid colon. There was no evidence of bleeding. Pathology on the polyp showed tubular adenoma with no high-grade dysplasia identified. His most recent CBC, from 11/30/2020, showed hemoglobin 9.6 g with hematocrit 30.6%. The red cell indices were slightly macrocytic. The white blood cell count was 5900 and the platelet count was 160,000. His basic metabolic profile showed elevated BUN and creatinine at 50 and 3.7 mg/dL. He has had serum iron studies checked on 4 occasions between March 2020 and September 2020, all showing normal transferrin saturation varying between 27 and 46%. His ferritin level has been in the upper normal range on 2 occasions. Multiple B12 levels also have been normal. He complains that he has been weak since May, though he is still able to do light work. ECOG score is 1. His appetite has been okay. He is on a restricted diet. His weight has been stable. He does not have fever or night sweats. He has had some mild exertional dyspnea, but his breathing is mostly pretty good he does not complain of cough and he has not been having chest pain. He was having constipation, that lately has resolved. He has no other GI or complaints. He has no significant joint or bone pain. He does not complain of headache. Says he does get lightheaded when his blood count is low. He has no numbness/paresthesia or other focal neurologic symptoms. Past Medical History: His medical history includes abdominal aortic aneurysm, anxiety, atrial fibrillation, benign prostatic hypertrophy, chronic insomnia, chronic kidney disease, depression, hyperparathyroidism, hypertension, and hypothyroidism. Past Surgical History: His surgical/procedural history includes back surgery for ruptured disc, cholecystectomy, pancreas biopsy, placement and subsequent removal of loop recorder, and EGD and colonoscopy in 2020. Medications: Adult Aspirin EC Low Strength (81 mg) Tablet, enteric coated Oral daily, Albuterol Sulfate (108 (90 base) mcg/act) Aerosol Powder, Breath Activated Inhalation daily, amLODIPine Besylate Tablet Oral daily, Atenolol 1 Tablet (of 50 mg) Oral daily, busPIRone HCl (15 mg) Tablet Oral b.i.d., Cyanocobalamin (1000 mcg) Capsule Oral daily, Finasteride (5 mg) Tablet Oral daily, Gabapentin (300 mg) Capsule Oral b.i.d., Levothyroxine Sodium (150 mcg) Tablet Oral daily, Nitroglycerin Pack Sublingual PRN, Omeprazole (40 mg) Capsule Delayed Release Oral b.i.d., Sodium Bicarbonate 2 Tablet (of 650 mg) Oral t.i.d., Tamsulosin HCl (0.4 mg) Capsule Oral daily, traZODone HCl (50 mg) Tablet Oral at bedtime Allergies: No Known Allergies. Social History: Mr. Sharma is . He has a history of smoking 1 pack of cigarettes daily for 40 years. Alcohol use has been limited to 1 beer per evening. Family History: Father with heart disease at age 69. Mother at 90 with old age. A brother and a sister are in good health. A son with heart disease at age 48. Review Of Symptoms: Constitutional - He has been feeling weak since at least May. He is still able to do light work. His appetite has been okay, though he has been on a restricted diet. His weight recently has been stable. He does not have fever or night sweats. ECOG score is 1, Eyes - No change in vision, ENMT - He has hearing loss and tinnitus. No sinus congestion/drainage. No mouth sores. No sore throat or difficulty swallowing, Hematologic/Lymphatic - He has easy bruising, Respiratory - He has a little shortness of breath, but his breathing generally is pretty good. No cough. No pleuritic pain or hemoptysis, Cardiovascular - No angina pain. No palpitations, Gastrointestinal - No nausea or vomiting. No heartburn or acid reflux. He was having constipation, but that has improved. His stools had been dark at one point, not recently. He has otherwise not been aware of any blood in the stool, Genitourinary (M) - No dysuria or hematuria. No urinary frequency. No urgency or incontinence, Musculoskeletal - No joint or bone pain, Integumentary - No skin rash or other skin changes, Neurologic - No headache. He does get lightheaded when his blood count is low. No numbness or tingling. No other focal neurologic symptoms, Psychiatric - He occasionally has anxiety. No depression. No insomnia. Vital Signs: Performed on Dec 21, 2020 20:38: 17.36 (LOW), 1.76 sq.m, 72 in, 98 %, 63 /min, 18 /min, 189/96 mm(hg) (HIGH), 98.5 F, and 128 lbs (HIGH). Physical Examination: Constitutional - He looks pretty good generally, Eyes - Sclerae nonicteric. Conjunctivae clear, ENMT - No lesions noted in the oral cavity, Neck - No mass or thyromegaly, Hematologic/Lymphatic - No cervical, clavicular, or axillary adenopathy, Respiratory - Lungs are clear with good air movement bilaterally, Cardiovascular - Heart rhythm is regular. There is no murmur, gallop, or rub noted. There is no carotid bruit noted, Abdomen - Soft and non-tender. Liver and spleen are not enlarged. There is no abdominal mass or ascites noted and there is no inguinal adenopathy, Back/Spine - No spine or CVA tenderness noted, Extremities - No edema. Pedal pulses are palpable bilaterally. There are purpuric lesions on both arms, Integumentary - No rashes. No suspicious skin lesions noted, Neurologic - No focal neurologic deficits noted. Problem List: 1. Chronic anemia, moderate to severe, now transfusion dependent. A specific cause has not been determined. 2. He has chronic kidney disease, late stage IV to stage V. 3. Hypertension. 4. Atrial fibrillation. 5. He has known abdominal aortic aneurysm. 6. Hypothyroidism. 7. Benign prostatic hypertrophy. 8. Chronic insomnia. 9. Anxiety/depression. Problems Addressed with this Encounter and Plan: Patient with chronic anemia, now transfusion dependent. The cause is uncertain. Obviously some component may be due to the underlying chronic kidney disease, but the severity of the anemia is suggestive of additional causes. In the absence of any evidence of iron deficiency or heme positive stool, it is unlikely to be due to GI blood loss, and I do not think that further GI evaluation will be rewarding. Other potential causes would be hemolysis, myeloma, or myelodysplastic syndrome. At this point I will repeat the CBC along with comprehensive metabolic profile, reticulocyte count, LDH level, and haptoglobin level. I will repeat serum iron studies, ferritin, and B12 and folate levels, and I also will check sed rate, serum protein electrophoresis, and serum free light chain assay. I will review the blood smear. He will have further evaluation as indicated. I anticipate that he will require bone marrow aspiration/biopsy. Signed By: Joe Solis M.D. <<Signature on File>>
[2020-12-22 11:22] LABS: PROTEIN, TOTAL 6.4 g/dL (6.1-8.1)
[2020-12-22 13:02] LABS: KAPPA LIGHT CHAIN, FREE, SERUM 104.1 mg/L (3.3-19.4); KAPPA/LAMBDA LIGHT CHAINS FREE 1.09 (0.26-1.65); LAMBDA LIGHT CHAIN, FREE, SERU 95.7 mg/L (5.7-26.3)
[2020-12-22 13:07] LABS: ALBUMIN 4.1 g/dL (3.8-4.8); ALPHA 1 GLOBULIN 0.3 g/dL (0.2-0.3); ALPHA 2 GLOBULIN 0.6 g/dL (0.5-0.9); BETA 1 GLOBULIN 0.3 g/dL (0.4-0.6); BETA 2 GLOBULIN 0.3 g/dL (0.2-0.5); GAMMA GLOBULIN 0.8 g/dL (0.8-1.7)
== END 2020-12-21 12:26 | disposition home or self-care (01) ==
LOC: ONCMED 12:31
PROVIDERS: PCP Family Medicine; Visit Provider Internal Medicine Medical Oncology
DX: D64.9 Anemia, unspecified (principal); N18.5 Chronic kidney disease, stage 5; I10 Essential (primary) hypertension; I48.91 Unspecified atrial fibrillation; I71.4 Abdominal aortic aneurysm, without rupture; E03.9 Hypothyroidism, unspecified; N40.0 Benign prostatic hyperplasia without lower urinary tract symptoms; F51.04 Psychophysiologic insomnia; F41.9 Anxiety disorder, unspecified; F32.9 Major depressive disorder, single episode, unspecified; Z79.899 Other long term (current) drug therapy
CPT/HCPCS: 36415; 80053; 82607; 82728; 82746; 83010; 83540; 83550; 83615; 83883; 84155; 84165; 85025; 85045; 85651; 86850; 86900; 99205

== ENCOUNTER 2020-12-26 12:43 | Outpatient (CLI) | payer MEDICARE, SELFPAY ==
--- NOTE | 2020-12-26 12:51 | CT_ITS ---
WS: [id number] CT ABDOMEN TECHNIQUE: Noncontrast CT of the abdomen with coronal and sagittal reformatted images. CLINICAL INFORMATION: ANEMIA, NOT OTHERWISE SPECIFIED COMPARISON: CT 3 16,018, MRI 2017 DLP: 690.[address] scans at [facility] use at least one of these dose optimization techniques: automated e xposure control; mA and/or kV adjustment per patient size (includes targeted exams where dose is matc hed to clinical indication); or iterative reconstruction. FINDINGS: Prior cholecystectomy. Infrarenal abdominal aortic aneurysm measuring 4.1 x 4.2 cm AP by transverse. This is progressed from 2018 where it measured 3.2 x 3.3 CM. Recommend vascular surgery consult. Calcified granulomas in the lung bases. Normal GE junction. Noncontrast liver is unremarkable. Small right hepatic cyst. Adrenal glands are normal. Splenic granulomas. Bilateral renal cortical cysts some of which are progr essed compared to previous. Increased attenuation right renal lesion measuring 10 mm likely hemorrhag ic cyst but technically indeterminant. This can be followed up with ultrasound. No hydronephrosis in either kidney. Pancreatic calcifications. Low-attenuation cystic lesion involvin g the dorsal pancreas measuring 13 mm unchanged. Prominent common bile duct normal post cholecystecto my likely physiologic. Additional cystic-appearing lesion involving the tail the pancreas measuring 1 3 mm also unchanged and better seen on the prior MRI in 2017. CT/CT abdomen wo con [id number] IMPRESSION: 1. Infrarenal abdominal aortic aneurysm measuring 4.1 x 4.2 cm AP by transvers e. This is progressed from 2018 where it measured 3.2 x 3.3 CM. Recommend vascu lar surgery consult. 2. Cystic lesions in the dorsal head/neck pancreatic junction and tail of the pancreas unchanged since the MRI in 2017. 3. Prior cholecystectomy. 4. Increased attenuation right renal cortical lesion measuring 10 mm increased in size from 2018 and may represent hemorrhagic cyst but technically indetermi maia. This can be further evaluated with renal ultrasound. 5. No other significant findings.
== END 2020-12-26 12:44 | disposition home or self-care (01) ==
PROVIDERS: PCP Family Medicine; Visit Provider Registered Nurse
DX: D64.9 Anemia, unspecified (principal); Z90.49 Acquired absence of other specified parts of digestive tract; I71.4 Abdominal aortic aneurysm, without rupture
CPT/HCPCS: 74150

== ENCOUNTER 2021-01-01 10:10 | Outpatient (CLI) | payer MEDICARE, SELFPAY ==
--- NOTE | 2021-01-01 10:15 | US_ITS ---
WS: [id number] ULTRASOUND RENAL TECHNIQUE: Ultrasound examination of both kidneys. CLINICAL INFORMATION: HEMORRHAGIC R RENAL CYST COMPARISON: CT December 26, 2020 FINDINGS: RIGHT: Simple cortical cyst right kidney measuring 11 x 7 x 8 mm Right kidney is normal in size and appearance. Echogenicity: Normal. Cortical thickness: 1.1 cm; Normal. Hydronephrosis: None. Perinephric fluid: None. Right kidney measures: 8.0 cm x 4.0 cm x 4.4 cm. LEFT: Simple cysts left kidney measuring 2.1 x 2.2 x 2.1 cm and 1.7 x 1.6 x 2.2 cm Left kidney is normal in size and appearance. Echogenicity: Normal. Cortical thickness: 1.2 cm; Normal. Hydronephrosis: None. Perinephric fluid: None. Left kidney measures: 7.9 cm x 4.0 cm x 4.8 cm. Abdominal aortic aneurysm unchanged from recent CT 4.1 x 4.2 cm AP by transverse. Mild diffuse bladde r wall thickening. US/US renal BI* [id number] IMPRESSION: 1. Simple cysts left kidney measuring 2.1 x 2.2 x 2.1 cm and 1.7 x 1.6 x 2.2 c m 2. Simple cortical cyst right kidney measuring 1.1 x 0.7 x 0.8 cm 3. No hydronephrosis in either kidney.
== END 2021-01-01 10:11 | disposition home or self-care (01) ==
PROVIDERS: PCP Family Medicine; Visit Provider Registered Nurse
DX: N28.1 Cyst of kidney, acquired (principal)
CPT/HCPCS: 76770

== ENCOUNTER → 2021-01-09 11:47 | Outpatient (BNVA) | payer MEDICARE, SELFPAY | PROVIDERS: PCP Family Medicine; Visit Provider Family Medicine | DX: D64.9 Anemia, unspecified (principal) | CPT/HCPCS: 85025 ==

== ENCOUNTER → 2021-01-10 06:48 | Day surgery (SDC) | payer MEDICARE, SELFPAY ==
[2021-01-10] VITALS (11 sets, daily range): BP systolic 150–173; BP diastolic 65–92; PULSE 57–61; RESP 16–18; TEMP 36.1–36.6; O2SAT 99–100; BMI 17.6
[2021-01-10] MEDS: sodium chloride 0.9% (100 ml) 100 ML 10 ML ×2 (08:40→11:00)
== END ==
PROVIDERS: PCP Family Medicine; Visit Provider Family Medicine
DX: D64.9 Anemia, unspecified (principal)
CPT/HCPCS: 36430; 86850; 86900; 86920; P9016; P9040

== ENCOUNTER 2021-01-30 08:30 | Outpatient (CLI) | payer MEDICARE, SELFPAY ==
[2021-01-30 09:26] LABS: Basophils % 0.3 %; Eosinophils # 0.4 10^3/uL (0.0-0.8); Eosinophils % 6.4 %; Hematocrit 26.1 % (42.0-52.0); Hemoglobin 8.3 g/dL (11.7-16.6); Lymphocytes # 1.4 10^3/uL (0.8-4.8); Lymphocytes % 21.4 %; Mean Corpuscular HGB Conc 31.8 g/dL (30.0-36.0); Mean Corpuscular Hemoglobin 30.6 pg (28.0-34.0); Mean Corpuscular Volume 96.3 fl (80-94); Mean Platelet Volume 10.6 fL (7.4-10.4); Monocytes # 0.5 10^3/uL (0.2-0.9); Neutrophils # 4.29 10^3/uL (1.8-7.7); Neutrophils % 63.6 %; Nucleated Red Blood Cells % 0 %; Platelet Count 172 10^3/cmm (130-400); Red Blood Count 2.71 10^6/uL (4.1-5.3); Red Cell Distribution Width 14.8 % (12.1-15.1); White Blood Count 6.7 10^3/uL (4.0-10.0)
[2021-01-30 09:48] LABS: Alanine Aminotransferase 10 U/L (0-41); Alkaline Phosphatase 67 IU/L (40-130); Anion Gap 17.6 (5-19); Aspartate Amino Transferase 13 U/L (0-40); Blood Urea Nitrogen 49 mg/dL (8-23); Calcium 8.9 mg/dL (8.5-10.5); Carbon Dioxide 17 mmol/L (22-29); Chloride 109 mmol/L (98-107); Globulin 2.5 g/dL (1.3-4.6); Glucose 95 mg/dL (65-115); Osmolality Calculated 299 mOsm/kg (285-295); Potassium 5.6 mmol/L (3.5-5.1); Sodium 138 mmol/L (136-145); Total Bilirubin 0.3 mg/dL (0.15-1.2); Total Protein 6.5 g/dL (6.6-8.7)
--- NOTE | 2021-02-03 10:47 | ONC FU_ITS ---
Dr. Solis Patient Follow-Up Note Patient: Haim Sharma Unit #: [id number]: 1945 Dicatated By: Joe Solis M.D.Date of Visit:Jan 30, 2021 Onc Med Follow-up/Prog Note Chief Complaint: Anemia. History of Present Illness: This is a 75-year-old man with moderate to severe anemia. He has chronic kidney disease, late stage IV to stage V, but not yet on dialysis. He has been chronically anemic dating back to at least December 2015. Numerous subsequent blood counts up until November 2018 had shown hemoglobin levels ranging from 9 to 11 g. As of July 2019 his hemoglobin had further declined to 8.4 g and by June 2020 it had further declined to 7.0 g. He has since then been transfused on multiple occasions. He indicates that since May 2020 he has been transfused a total of 9 units of PRBC. In August 2020 he had been referred to Dr. Ortiz after his hemoglobin had dropped to as low as 5.7 g. He reportedly was having rectal bleeding, but I cannot see where that was ever actually documented in his records and there is no documentation of any stool Hemoccult testing. Furthermore, he does not recall ever having had blood in his stool. He did have EGD and colonoscopy on 11/08/2020. The only finding on the EGD was moderate striped gastritis with no mucosal bleeding. The colonoscopy showed a semipedunculated polyp in the mid ascending colon measuring 2 x 3 mm. A few medium diverticuli were noted in the sigmoid colon. There was no evidence of bleeding. Pathology on the polyp showed tubular adenoma with no high-grade dysplasia identified. His CBC from 11/30/2020 showed hemoglobin 9.6 g with hematocrit 30.6%. The red cell indices were slightly macrocytic. The white blood cell count was 5900 and the platelet count was 160,000. His basic metabolic profile showed elevated BUN and creatinine at 50 and 3.7 mg/dL. He had serum iron studies checked on 4 occasions between March 2020 and September 2020, all showing normal transferrin saturation varying between 27 and 46%. His ferritin level has been in the upper normal range on 2 occasions. Multiple B12 levels also had been normal. I had seen him initially on 12/21/2020. CBC showed hemoglobin 8.6 g with white blood cell count 6000 and platelet count 163,000. Renal function was stable with BUN 53 and creatinine 3.9 mg/dL. His serum iron studies showed normal transferrin saturation at 44.3% and the ferritin was mildly elevated at 437 ng/mL. Bilirubin and liver enzymes were normal. LDH was normal at 182 U/L. B12 and folate levels were normal. Protein electrophoresis showed no monoclonal protein. The serum free light chain assay showed elevated free kappa and free lambda light chains but with normal kappa/lambda ratio 1.09 His medical illnesses, in addition to chronic kidney disease, include hypertension, atrial fibrillation, hypothyroidism, BPH, and chronic anxiety. He has known abdominal aortic aneurysm. He has a history of smoking 1 pack of cigarettes daily for 40 years. He is seen for a follow-up visit. He says he has been feeling okay, though he does get tired. ECOG score is 1. His appetite has been down, lately had has been pretty good. He has gained weight since his last visit. He does not have fever or night sweats. He does not complain of shortness of breath or cough and lately has not been having any chest pain. He had been having nausea. He ultimately figured out that it was related to eating eggs. He complains that his bowels are not very regular. Bladder function remains adequate. He has pain in his right shoulder, but no other joint or bone pain. He does not complain of headache. He has lightheadedness when his blood count is low. He has no numbness/paresthesia or other focal neurologic symptoms. Medications: Adult Aspirin EC Low Strength (81 mg) Tablet, enteric coated Oral daily, Albuterol Sulfate (108 (90 base) mcg/act) Aerosol Powder, Breath Activated Inhalation daily, amLODIPine Besylate 1 Tablet (of 5 mg) Oral b.i.d., Atenolol 1 Tablet (of 25 mg) Oral daily, Atorvastatin Calcium 1 Tablet (of 20 mg) Oral daily, busPIRone HCl (15 mg) Tablet Oral daily, Cyanocobalamin (1000 mcg) Capsule Oral daily, Finasteride (5 mg) Tablet Oral daily, Gabapentin (300 mg) Capsule Oral b.i.d., Levothyroxine Sodium (150 mcg) Tablet Oral daily, Nitroglycerin Pack Sublingual PRN, Omeprazole (40 mg) Capsule Delayed Release Oral daily, Sodium Bicarbonate 2 Tablet (of 650 mg) Oral b.i.d., Tamsulosin HCl 1 Tablet (of 0.4 mg) Capsule Oral b.i.d., traZODone HCl (50 mg) Tablet Oral at bedtime Allergies: No Known Allergies. Vital Signs: Performed on Jan 30, 2021 13:45 Height - 72.00 in Weight - 133.8 lbs (HIGH) BSA - 1.80 sq.m BMI - 18.15 Temperature - 98.3 F (LOW) Pulse - 69 /min Respiration - 18 /min BP - 121/66 mm(hg) O2 Sat - 99 % Pain - 0 Fatigue - 0 Physical Examination: Constitutional - He looks pretty good generally, Eyes - Sclerae nonicteric. Conjunctivae clear, ENMT - No lesions noted in the oral cavity, Hematologic/Lymphatic - No cervical, clavicular, or axillary adenopathy, Respiratory - Lungs are clear with good air movement bilaterally, Cardiovascular - Heart rhythm is regular. There is no murmur, gallop, or rub noted. There is no carotid bruit noted, Abdomen - Soft. Liver and spleen are not enlarged. There is no abdominal mass or ascites noted and there is no inguinal adenopathy, Extremities - No edema. There are purpuric lesions on both arms, Neurologic - No focal neurologic deficits noted. Lab/Imaging: Test performed on Jan 30, 2021 08:55 Sodium 138 mmol/L Potassium 5.6 mmol/L Chloride 109 mmol/L CO2 17 mmol/L Anion Gap 17.6 BUN 49 mg/dL Creatinine 3.7 mg/dL Cr Clearance (Est) 14.81 mL/min Glucose 95 mg/dL Osmolality - Calculated 299 mOsm/kg Calcium 8.9 mg/dL Protein, Total 6.5 g/dL Albumin 4.0 g/dL Globulin 2.5 g/dL Bilirubin, Total 0.3 mg/dL ALT (SGPT) 10 U/L AST (SGOT) 13 U/L Alkaline Phosphatase 67 IU/L WBC 6.7 10 3/uL RBC 2.71 10 6/uL HGB 8.3 g/dL HCT 26.1 % MCV 96.3 fl MCH 30.6 pg MCHC 31.8 g/dL RDW 14.8 % Platelet Count 172 10 3/cmm MPV 10.6 fL Neutrophils 4.29 10 3/uL Lymphocytes 1.4 10 3/uL Monocytes 0.5 10 3/uL Eosinophils 0.4 10 3/uL Basophils 0.0 10 3/uL Neutrophil % 63.6 % Lymphocyte % 21.4 % Monocyte % 8.0 % Eosinophil % 6.4 % Basophils % 0.3 % NRBC % 0 % Problem List: 1. Chronic anemia, moderate to severe, now transfusion dependent. A specific cause has not been determined. 2. He has chronic kidney disease, late stage IV to stage V. 3. Hypertension. 4. Atrial fibrillation. 5. He has known abdominal aortic aneurysm. 6. Hypothyroidism. 7. Benign prostatic hypertrophy. 8. Chronic insomnia. 9. Anxiety/depression. Problems Addressed with this Encounter and Plan: Patient with chronic anemia, now transfusion dependent. The cause is uncertain. There is no doubt that at least some component is associated with his chronic kidney disease, but the severity of the anemia is a little more than what I would expect just on the basis of renal failure. The main concern is the possibility of myelodysplastic syndrome. As such, he is being scheduled for bone marrow aspiration/biopsy. He will have further evaluation as indicated. Signed By: Joe Solis M.D. <<Signature on File>>
== END 2021-01-30 08:31 | disposition home or self-care (01) ==
LOC: ONCMED 08:37
PROVIDERS: PCP Family Medicine; Visit Provider Internal Medicine Medical Oncology
DX: D63.1 Anemia in chronic kidney disease (principal); N18.5 Chronic kidney disease, stage 5; I12.0 Hypertensive chronic kidney disease with stage 5 chronic kidney disease or end stage renal disease; I48.20 Chronic atrial fibrillation, unspecified; I71.4 Abdominal aortic aneurysm, without rupture; E03.9 Hypothyroidism, unspecified; N40.0 Benign prostatic hyperplasia without lower urinary tract symptoms; F41.9 Anxiety disorder, unspecified; F32.9 Major depressive disorder, single episode, unspecified; F51.04 Psychophysiologic insomnia; Z79.899 Other long term (current) drug therapy
CPT/HCPCS: 36415; 80053; 81003; 85025; 99214

== ENCOUNTER → 2021-02-05 11:42 | Outpatient (BNVA) | payer MEDICARE, SELFPAY | PROVIDERS: PCP Family Medicine; Visit Provider Internal Medicine Nephrology | DX: N18.4 Chronic kidney disease, stage 4 (severe) (principal) | CPT/HCPCS: 80069; 82043; 82306; 82310; 83970; 85025 ==

== ENCOUNTER → 2021-02-12 09:42 | Outpatient (BNVA) | payer MEDICARE, SELFPAY | PROVIDERS: PCP Family Medicine; Visit Provider Internal Medicine Medical Oncology | DX: Z01.812 Encounter for preprocedural laboratory examination (principal); Z20.822 Contact with and (suspected) exposure to COVID-19 | CPT/HCPCS: 87635 ==

== ENCOUNTER 2021-02-15 09:30 | Day surgery (SDC) | payer MEDICARE, SELFPAY ==
[2021-02-13 10:22] VITALS: BMI 18.3
--- NOTE | 2021-02-15 09:40 | ANES.PREANE2 ---
Pre-Anesthetic Assessment Pre-Anesthetic Assessment: Height/Weight: Height 1.83 m Weight 61.235 kg Preop Diagnosis: Bleeding per rectum Proposed Procedure: Operation Date: 02/15/21 11:00 Proposed Procedures p Bone Marrow Biospy With Aspiration(Not Applicable) - Loraine Mattson MD Was Beta Shawn taken within 24 hours: Yes Was Clonidine taken within 24 hours: N/A Social: Social History: Tobacco Packs per day: 1 ppd Exam: Pre-Anes Outpt Exam: alert, oriented x 3, clear to auscultation bilaterally and regular rate & rhythm Airway: Submandibular: WNL Cervical ROM: WNL MP: 2 Dentition: Caps History/ROS: No significant complaints Pulmonary: Pulmonary: AMAYA CV/HEM: CV/HEM: HTN : : None reported Hepatic: Hepatic: None reported GI: GI: None reported Metabolic: Metabolic: None reported Musc/skel: Musc/skel: None reported Neuropsych: Neuropsych: None reported Anesthetic Plan: ASA status: 3 Risk of > 500 ml blood loss (7ml/kg in children): No PFSH Anesthesia PFSH: Medical History AAA (abdominal aortic aneurysm) Atrial fibrillation BPH (benign prostatic hyperplasia) BPH NOS w ur obs/LUTS Chronic kidney disease, stage IV (severe) Chronic migraine CKD (chronic kidney disease) Colon polyp Depression Dizziness Erectile dysfunction HTN (hypertension) Hypogonadism Hypothyroidism Renal cyst Surgical History History of loop recorder History of pancreatic surgery Biopsy Previous back surgery S/P cholecystectomy Family History Father , 67 y/o Heart disease Myocardial infarction Mother Arthritis Depression Anxiety Hypertension Hearing loss Social History Second hand smoke exposure: Yes Alcohol intake: current Alcohol intake frequency: holidays/special occasions only Adopted: No Caregiver/support person: No Lives independently: Yes Marital status: / Current occupational status: retired History of recent travel: No Data Anesthesia Cardiac Studies: No Data to Display
--- NOTE | 2021-02-15 09:45 | ANES.PREANE2 ---
Pre-Anesthetic Assessment Pre-Anesthetic Assessment: Height/Weight: Height 1.83 m Weight 61.235 kg Preop Diagnosis: Bleeding per rectum Proposed Procedure: Operation Date: 02/15/21 11:00 Proposed Procedures p Bone Marrow Biospy With Aspiration(Not Applicable) - Loraine Mattson MD Was Beta Shawn taken within 24 hours: Yes Was Clonidine taken within 24 hours: N/A Social: Social History: Tobacco Packs per day: 1 ppd Exam: Pre-Anes Outpt Exam: alert, oriented x 3 and clear to auscultation bilaterally Airway: Submandibular: WNL Cervical ROM: WNL MP: 2 Dentition: Caps History/ROS: No significant complaints Pulmonary: Pulmonary: SOB CV/HEM: CV/HEM: Afib and HTN Comments: AAA : : Chronic renal Insufficiency Hepatic: Hepatic: None reported GI: GI: None reported Metabolic: Metabolic: None reported Musc/skel: Musc/skel: None reported Neuropsych: Neuropsych: None reported Anesthetic Plan: ASA status: 3 Anesthesia: Choice Risk of > 500 ml blood loss (7ml/kg in children): No PFSH Anesthesia PFSH: Medical History AAA (abdominal aortic aneurysm) Atrial fibrillation BPH (benign prostatic hyperplasia) BPH NOS w ur obs/LUTS Chronic kidney disease, stage IV (severe) Chronic migraine CKD (chronic kidney disease) Colon polyp Depression Dizziness Erectile dysfunction HTN (hypertension) Hypogonadism Hypothyroidism Renal cyst Surgical History History of loop recorder History of pancreatic surgery Biopsy Previous back surgery S/P cholecystectomy Family History Father , 67 y/o Heart disease Myocardial infarction Mother Arthritis Depression Anxiety Hypertension Hearing loss Social History Second hand smoke exposure: Yes Alcohol intake: current Alcohol intake frequency: holidays/special occasions only Adopted: No Caregiver/support person: No Lives independently: Yes Marital status: / Current occupational status: retired History of recent travel: No Data Anesthesia Cardiac Studies: No Data to Display
[2021-02-15 10:00] VITALS: BP 198/100; PULSE 64; RESP 16; TEMP 36.6; O2SAT 99
[2021-02-15] MEDS: sodium chloride 0.9% 1,000 ML 30 ML IV (10:13)
[2021-02-15 10:37] LABS: Basophils % 0.3 %; Eosinophils # 0.6 10^3/uL (0.0-0.8); Eosinophils % 9.7 %; Hematocrit 23.5 % (42.0-52.0); Hemoglobin 7.5 g/dL (11.7-16.6); Lymphocytes # 1.3 10^3/uL (0.8-4.8); Lymphocytes % 22.2 %; Mean Corpuscular HGB Conc 31.9 g/dL (30.0-36.0); Mean Corpuscular Hemoglobin 30.7 pg (28.0-34.0); Mean Corpuscular Volume 96.3 fl (80-94); Mean Platelet Volume 10.1 fL (7.4-10.4); Monocytes # 0.5 10^3/uL (0.2-0.9); Monocytes % 8.2 %; Neutrophils # 3.55 10^3/uL (1.8-7.7); Neutrophils % 59.3 %; Nucleated Red Blood Cells % 0 %; Platelet Count 158 10^3/cmm (130-400); Red Blood Count 2.44 10^6/uL (4.1-5.3); Red Cell Distribution Width 15.1 % (12.1-15.1)
[2021-02-15 11:13] VITALS: BP 142/71; PULSE 58; RESP 20; TEMP 36.3; O2SAT 100
--- NOTE | 2021-02-15 11:21 | P.PCN_ITS ---
Bone Marrow Biopsy Bone Marrow Biopsy: I was consulted by [] office regarding bone marrow biopsy on [Haim Sharma]. Briefly, the patient is a [75] year old [male] with [anemia]. In the Outpatient Services Department, with nursing staff and laboratory technologists in attendance, the procedure was discussed with the patient. Appropriate consent form had been signed. Appropriate alternatives, benefits and risks of procedure were discussed with the patient and he was pre- operatively assessed with a history and physical by myself and cleared for the biopsy procedure. The patient did request IV sedation and that was provided by the Anesthesia Department. Under aseptic condition, right posterior iliac area was cleaned and prepped, local anesthesia was given, about 15 cc of bone marrow aspirate and core biopsy was obtained, patient tolerated procedure well, hemostasis was obtained specimen was sent for routine histopathology and cytogenetics and FISH for MDS. Postprocedure nursing instructions were given Thank you for allowing me to participate in this patient's care and diagnosis. Coding Level of Care Code Acute Material Cutter for Maria Antonia Brambila
[2021-02-15 11:29] VITALS: BP 156/82; PULSE 65; RESP 18; O2SAT 99
[2021-02-15 11:41] VITALS: BP 166/91; PULSE 71; RESP 18; O2SAT 99
[2021-02-19 08:41] LABS: Miscellaneous Test See Scanned Lab Rpt
[2021-03-02 10:13] LABS: Miscellaneous Test See Scanned Lab Rpt
== END 2021-02-15 11:55 | disposition home or self-care (01) ==
PROVIDERS: PCP Family Medicine; Visit Provider Internal Medicine Hematology & Oncology
PROC: 07DT3ZX Extraction of Bone Marrow, Percutaneous Approach, Diagnostic (ICD-10-PCS; CPT 38222; principal; 2021-02-15 11:00)
DX: D64.9 Anemia, unspecified (principal); I12.9 Hypertensive chronic kidney disease with stage 1 through stage 4 chronic kidney disease, or unspecified chronic kidney disease; N18.4 Chronic kidney disease, stage 4 (severe); Z90.49 Acquired absence of other specified parts of digestive tract
CPT/HCPCS: 36415; 38222; 85025; 88237; 88264; 88305; 88311; 88367; 88374; 96360; J2704; J7030

== ENCOUNTER → 2021-02-21 10:58 | Outpatient (BNVA) | payer MEDICARE, SELFPAY | PROVIDERS: PCP Family Medicine; Visit Provider Family Medicine | DX: D64.9 Anemia, unspecified (principal) | CPT/HCPCS: 85025 ==

== ENCOUNTER 2021-02-22 08:29 | Outpatient (CLI) | payer MEDICARE, SELFPAY ==
[2021-02-22] MEDS: diphenhydrAMINE 25 mg Capsule PO (10:40)
[2021-02-22] MEDS: acetaminophen 325 mg Tablet 650 MG PO (10:40)
[2021-02-22] MEDS: sodium chloride 0.9% 250 ML 999 ML IV (10:40)
[2021-02-22 10:45] VITALS: BP 168/89; PULSE 57; RESP 18; TEMP 36.7; O2SAT 100
[2021-02-22 11:00] VITALS: BP 170/83; PULSE 56; RESP 18; TEMP 36.6; O2SAT 100
[2021-02-22 11:15] VITALS: BP 146/69; PULSE 56; RESP 18; TEMP 36.8; O2SAT 100
[2021-02-22 12:40] VITALS: BP 154/72; PULSE 57; RESP 18; TEMP 36.8; O2SAT 100
[2021-02-22] MEDS: FUROsemide 10 mg/mL SDV 2mL 20 MG IV (12:45)
[2021-02-22 12:50] VITALS: BP 168/71; PULSE 57; RESP 18; TEMP 36.7; O2SAT 100
[2021-02-22 13:05] VITALS: BP 168/88; PULSE 57; RESP 18; TEMP 36.6; O2SAT 100
== END 2021-02-22 08:30 | disposition home or self-care (01) ==
LOC: ONCMED 08:30
PROVIDERS: PCP Family Medicine; Visit Provider Internal Medicine Hematology & Oncology
DX: D64.9 Anemia, unspecified (principal)
CPT/HCPCS: 36430; 86850; 86900; 86920; J1940; J7050; P9016

== ENCOUNTER → 2021-03-14 12:28 | Outpatient (BNVA) | payer MEDICARE, SELFPAY | PROVIDERS: PCP Family Medicine; Visit Provider Family Medicine | DX: M25.511 Pain in right shoulder (principal); Z68.1 Body mass index [BMI] 19.9 or less, adult; Z77.22 Contact with and (suspected) exposure to environmental tobacco smoke (acute) (chronic) | CPT/HCPCS: 73030 ==

== ENCOUNTER → 2021-03-19 08:32 | Outpatient (BNVA) | payer MEDICARE, SELFPAY | PROVIDERS: PCP Family Medicine; Visit Provider Urology | DX: N52.1 Erectile dysfunction due to diseases classified elsewhere (principal); D64.9 Anemia, unspecified; N28.1 Cyst of kidney, acquired; N40.1 Benign prostatic hyperplasia with lower urinary tract symptoms | CPT/HCPCS: 81003; 84403 ==

== ENCOUNTER 2021-03-23 08:59 | Outpatient (CLI) | payer MEDICARE, SELFPAY ==
[2021-03-23 09:48] LABS: Basophils % 0.4 %; Eosinophils # 0.2 10^3/uL (0.0-0.8); Eosinophils % 4.4 %; Hematocrit 24.4 % (42.0-52.0); Lymphocytes % 19.5 %; Mean Corpuscular HGB Conc 32.8 g/dL (30.0-36.0); Mean Corpuscular Volume 94.6 fl (80-94); Mean Platelet Volume 10.7 fL (7.4-10.4); Monocytes # 0.5 10^3/uL (0.2-0.9); Monocytes % 10.2 %; Neutrophils # 3.38 10^3/uL (1.8-7.7); Neutrophils % 65.1 %; Nucleated Red Blood Cells % 0 %; Platelet Count 164 10^3/cmm (130-400); Red Blood Count 2.58 10^6/uL (4.1-5.3); Red Cell Distribution Width 14.7 % (12.1-15.1); White Blood Count 5.2 10^3/uL (4.0-10.0)
[2021-03-23 10:10] LABS: Alanine Aminotransferase 10 U/L (0-41); Albumin Level 3.8 g/dL (3.5-5.2); Alkaline Phosphatase 77 IU/L (40-130); Anion Gap 15.6 (5-19); Aspartate Amino Transferase 17 U/L (0-40); Blood Urea Nitrogen 52 mg/dL (8-23); Calcium 8.4 mg/dL (8.5-10.5); Carbon Dioxide 26 mmol/L (22-29); Chloride 103 mmol/L (98-107); Globulin 2.3 g/dL (1.3-4.6); Glucose 144 mg/dL (65-115); Osmolality Calculated 305 mOsm/kg (285-295); Potassium 5.6 mmol/L (3.5-5.1); Sodium 139 mmol/L (136-145); Total Bilirubin 0.3 mg/dL (0.15-1.2); Total Protein 6.1 g/dL (6.6-8.7)
--- NOTE | 2021-03-23 14:02 | ONC FU_ITS ---
Dr. Solis Patient Follow-Up Note Patient: Haim Sharma Unit #: [id number]: 1945 Dicatated By: Joe Solis M.D.Date of Visit:Mar 23, 2021 Onc Med Follow-up/Prog Note Chief Complaint: Anemia. History of Present Illness: This is a 75-year-old man with moderate to severe anemia. He has chronic kidney disease, late stage IV to stage V, but not yet on dialysis. He has been chronically anemic dating back to at least December 2015. Numerous subsequent blood counts up until November 2018 had shown hemoglobin levels ranging from 9 to 11 g. As of July 2019 his hemoglobin had further declined to 8.4 g and by June 2020 it had further declined to 7.0 g. He has since then been transfused on multiple occasions. He indicates that since May 2020 he has been transfused a total of 9 units of PRBC. In August 2020 he had been referred to Dr. Ortiz after his hemoglobin had dropped to as low as 5.7 g. He reportedly was having rectal bleeding, but I cannot see where that was ever actually documented in his records and there is no documentation of any stool Hemoccult testing. Furthermore, he does not recall ever having had blood in his stool. He did have EGD and colonoscopy on 11/08/2020. The only finding on the EGD was moderate striped gastritis with no mucosal bleeding. The colonoscopy showed a semipedunculated polyp in the mid ascending colon measuring 2 x 3 mm. A few medium diverticuli were noted in the sigmoid colon. There was no evidence of bleeding. Pathology on the polyp showed tubular adenoma with no high-grade dysplasia identified. His CBC from 11/30/2020 showed hemoglobin 9.6 g with hematocrit 30.6%. The red cell indices were slightly macrocytic. The white blood cell count was 5900 and the platelet count was 160,000. His basic metabolic profile showed elevated BUN and creatinine at 50 and 3.7 mg/dL. He had serum iron studies checked on 4 occasions between March 2020 and September 2020, all showing normal transferrin saturation varying between 27 and 46%. His ferritin level has been in the upper normal range on 2 occasions. Multiple B12 levels also had been normal. I had seen him initially on 12/21/2020. CBC showed hemoglobin 8.6 g with white blood cell count 6000 and platelet count 163,000. Renal function was stable with BUN 53 and creatinine 3.9 mg/dL. His serum iron studies showed normal transferrin saturation at 44.3% and the ferritin was mildly elevated at 437 ng/mL. Bilirubin and liver enzymes were normal. LDH was normal at 182 U/L. B12 and folate levels were normal. Protein electrophoresis showed no monoclonal protein. The serum free light chain assay showed elevated free kappa and free lambda light chains but with normal kappa/lambda ratio 1.09 His medical illnesses, in addition to chronic kidney disease, include hypertension, atrial fibrillation, hypothyroidism, BPH, and chronic anxiety. He has known abdominal aortic aneurysm. He has a history of smoking 1 pack of cigarettes daily for 40 years. INTERIM HISTORY: At his follow-up visit on 01/30/2021 he appeared stable clinically. There was further decline in his hemoglobin to 8.3 g with hematocrit 26.1%. The red cell indices were borderline high. The white blood cell count and platelet count were normal. With those findings, he had further evaluation with bone marrow aspiration/biopsy on 02/15/2021. The findings were nonspecific. Interpretation was somewhat limited due to paucity of spicules in the aspirate specimen, but the cellularity did appear to be normal for age, ranging from 10 to 30%. There was trilineage hematopoiesis with slight erythroid predominance but with no overt dysplastic change and with no evidence of an infiltrative process. Iron stores were noted to be increased with no ring sideroblasts identified. Flow cytometry was unrevealing. The FISH panel for MDS was negative for cytogenetic abnormalities commonly observed in myeloid neoplasms. He is seen for a follow-up visit. He says he has been feeling pretty good generally, though he does get tired. He rates his energy at 4/10. He is doing light work. ECOG score is 1. He has good appetite. He has no fever or night sweats. He has not had sore mouth or throat. He does not complain of cough, and he has not been having shortness of breath. He did have a little bit of chest pain recently. He has no GI/ complaints other than some mild constipation. He has not been aware of any blood in the stool. He has been having a lot of pain in his right shoulder. He is scheduled to see Dr. Chiu in April. He has no other joint or bone pain. He does not complain of headache. He sometimes has orthostatic lightheadedness. He has some numbness in his hands. Medications: Adult Aspirin EC Low Strength (81 mg) Tablet, enteric coated Oral daily, Albuterol Sulfate (108 (90 base) mcg/act) Aerosol Powder, Breath Activated Inhalation daily, amLODIPine Besylate 1 Tablet (of 5 mg) Oral b.i.d., Atenolol 1 Tablet (of 25 mg) Oral daily, Atorvastatin Calcium 1 Tablet (of 20 mg) Oral daily, busPIRone HCl (15 mg) Tablet Oral daily, Cyanocobalamin (1000 mcg) Capsule Oral daily, Finasteride (5 mg) Tablet Oral daily, Gabapentin (300 mg) Capsule Oral b.i.d., Levothyroxine Sodium (150 mcg) Tablet Oral daily, Nitroglycerin Pack Sublingual PRN, Omeprazole (40 mg) Capsule Delayed Release Oral daily, Sodium Bicarbonate 2 Tablet (of 650 mg) Oral b.i.d., Tamsulosin HCl 1 Tablet (of 0.4 mg) Capsule Oral b.i.d., traZODone HCl (50 mg) Tablet Oral at bedtime Allergies: No Known Allergies. Vital Signs: Performed on Mar 23, 2021 10:49 Height - 72.00 in Weight - 134.6 lbs (HIGH) BSA - 1.80 sq.m BMI - 18.26 Temperature - 98.5 F Pulse - 71 /min Respiration - 18 /min BP - 113/67 mm(hg) O2 Sat - 92 % (LOW) Pain - 7 Fatigue - 4 Physical Examination: Constitutional - He appears somewhat weak generally, Eyes - Sclerae nonicteric. Conjunctivae clear, ENMT - No lesions noted in the oral cavity, Hematologic/Lymphatic - No cervical, clavicular, or axillary adenopathy, Respiratory - Lungs sound clear with some decrease in air movement bilaterally, Cardiovascular - Heart rhythm is regular. There is no murmur, gallop, or rub noted, Abdomen - Soft. Liver and spleen are not enlarged. There is no abdominal mass or ascites noted and there is no inguinal adenopathy, Extremities - No edema. There are multiple ecchymoses/purpuric lesions on the arms, Neurologic - No focal neurologic deficits noted. Lab/Imaging: Test performed on Mar 23, 2021 09:17 Sodium 139 mmol/L Potassium 5.6 mmol/L Chloride 103 mmol/L CO2 26 mmol/L Anion Gap 15.6 BUN 52 mg/dL Creatinine 4.8 mg/dL Cr Clearance (Est) 11.48 mL/min Glucose 144 mg/dL Osmolality - Calculated 305 mOsm/kg Calcium 8.4 mg/dL Protein, Total 6.1 g/dL Albumin 3.8 g/dL Globulin 2.3 g/dL Bilirubin, Total 0.3 mg/dL ALT (SGPT) 10 U/L AST (SGOT) 17 U/L Alkaline Phosphatase 77 IU/L WBC 5.2 10 3/uL RBC 2.58 10 6/uL HGB 8.0 g/dL HCT 24.4 % MCV 94.6 fl MCH 31.0 pg MCHC 32.8 g/dL RDW 14.7 % Platelet Count 164 10 3/cmm MPV 10.7 fL Neutrophils 3.38 10 3/uL Lymphocytes 1.0 10 3/uL Monocytes 0.5 10 3/uL Eosinophils 0.2 10 3/uL Basophils 0.0 10 3/uL Neutrophil % 65.1 % Lymphocyte % 19.5 % Monocyte % 10.2 % Eosinophil % 4.4 % Basophils % 0.4 % NRBC % 0 % Problem List: 1. Chronic anemia, moderate to severe, transfusion dependent. 2. He has chronic kidney disease, late stage IV to stage V. 3. Hypertension. 4. Atrial fibrillation. 5. He has known abdominal aortic aneurysm. 6. Hypothyroidism. 7. Benign prostatic hypertrophy. 8. Chronic insomnia. 9. Anxiety/depression. Problems Addressed with this Encounter and Plan: Patient with chronic anemia, transfusion dependent. His initial evaluation showed no definite cause, and his bone marrow aspiration/biopsy on 02/15/2021 was nondiagnostic. In particular, the bone marrow did not show evidence of an infiltrative process or any overt dysplastic changes, and the FISH panel for MDS was negative. As such, the most likely cause for the anemia is the underlying chronic kidney disease. He is scheduled to have laboratory studies for Dr. Castaneda on 16 April, and I will include a repeat CBC and CMP along with reticulocyte count, LDH level, haptoglobin level, and erythropoietin level. In the absence of any evidence of hemolysis and assuming the erythropoietin level is low, he will then be given the option to start a trial of therapy with an erythropoietin stimulating agent. Signed By: Joe Solis M.D. <<Signature on File>>
== END 2021-03-23 09:00 | disposition home or self-care (01) ==
LOC: ONCMED 09:01
PROVIDERS: PCP Family Medicine; Visit Provider Internal Medicine Medical Oncology
DX: I12.0 Hypertensive chronic kidney disease with stage 5 chronic kidney disease or end stage renal disease (principal); N18.5 Chronic kidney disease, stage 5; D63.1 Anemia in chronic kidney disease; I48.91 Unspecified atrial fibrillation; I71.4 Abdominal aortic aneurysm, without rupture; E03.9 Hypothyroidism, unspecified; N40.0 Benign prostatic hyperplasia without lower urinary tract symptoms; F51.04 Psychophysiologic insomnia; F41.9 Anxiety disorder, unspecified; F32.9 Major depressive disorder, single episode, unspecified; Z79.899 Other long term (current) drug therapy
CPT/HCPCS: 36415; 80053; 85025; 99214

== ENCOUNTER → 2021-04-17 11:51 | Outpatient (BNVA) | payer MEDICARE, SELFPAY | PROVIDERS: PCP Family Medicine; Visit Provider Registered Nurse | DX: N18.4 Chronic kidney disease, stage 4 (severe) (principal) | CPT/HCPCS: 80069; 82043; 82306; 82310; 83970; 85025 ==

== ENCOUNTER → 2021-04-18 15:57 | Outpatient (BNVA) | payer MEDICARE, SELFPAY | PROVIDERS: PCP Family Medicine; Visit Provider Surgery | DX: Z11.52 Encounter for screening for COVID-19 (principal); N18.4 Chronic kidney disease, stage 4 (severe) | CPT/HCPCS: 87635 ==

== ENCOUNTER 2021-04-24 05:53 | Day surgery (SDC) | payer MEDICARE, SELFPAY ==
[2021-04-23 10:02] VITALS: BMI 17.6
[2021-04-24] VITALS (10 sets, daily range): BP systolic 122–161; BP diastolic 58–88; PULSE 55–98; RESP 16–18; TEMP 36.2–36.3; O2SAT 95–100
[2021-04-24] MEDS: sodium chloride 0.9% 1,000 ML 30 ML IV (06:32)
[2021-04-24] MEDS: acetaminophen 1,000 MG/100 ML PIGGYBACK 400 MG IV (06:32)
[2021-04-24] MEDS: heparin 5,000 unit/mL INJ 1 mL 2000 UNIT SUBCUT (06:33)
--- NOTE | 2021-04-24 06:34 | W.PM.OPSUD ---
Surgery/Procedure H&P Update DATE OF PROCEDURE: April 24, 2021 DATE H&P PERFORMED: 04/18/21 H&P UPDATE INFORMATION: I have reviewed H&P completed within last 30 days, I have examined patient prior to procedure and No changes to prior documentation PREOP DIAGNOSIS: Severe chronic kidney disease PRIMARY INDICATION FOR PROCEDURE: The same PLANNED PROCEDURE: Operation Date: 04/24/21 07:00 Proposed Procedures p Laparoscopic Peritoneal Cath Insertion [id number] N18.4(Not Applicable) - Fred Ortiz MD
--- NOTE | 2021-04-24 06:42 | ECG_ITS ---
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 Measurements Intervals [place] Rate: 51 P: 66 SD: 150 QRS: 72 QRSD: 89 T: 77 QT: 427 QTc: 396 Interpretive Statements SINUS BRADYCARDIA POSSIBLE LEFT ATRIAL ENLARGEMENT [-0.1mV P-WAVE IN V1/V2] POSSIBLE LEFT VENTRICULAR HYPERTROPHY [VOLTAGE CRITERIA PLUS LAE OR QRS WIDENING] Compared to ECG 07/28/2019 22:08:51 Sinus rhythm no longer present Electronically Signed On 04-25-2021 20:00:51 FAMILY ENGAGEMENT SPECIALIST by Clinton Clark M.D. [id number]
--- NOTE | 2021-04-24 06:57 | ANES.PREANE2 ---
Pre-Anesthetic Assessment Pre-Anesthetic Assessment: Height/Weight: Height 1.83 m Weight 58.967 kg Temp Pulse Resp BP Pulse Ox 97.3 F L 98 18 161/88 100 04/24/21 06:13 04/24/21 06:13 04/24/21 06:13 04/24/21 06:13 04/24/21 06:13 Preop Diagnosis: Severe chronic kidney disease Proposed Procedure: Operation Date: 04/24/21 07:00 Proposed Procedures p Laparoscopic Peritoneal Cath Insertion [id number] N18.4(Not Applicable) - Fred Ortiz MD Was Beta Shawn taken within 24 hours: Yes Was Clonidine taken within 24 hours: N/A Last intake: Intake Last Liquid Date 04/24/21 Last Liquid Time 04:30 Last Solid Date 04/23/21 Last Solid Time 18:30 Social: Social History: Tobacco and No alcohol Exam: Pre-Anes Outpt Exam: alert, oriented x 3, clear to auscultation bilaterally and regular rate & rhythm Airway: Submandibular: WNL Cervical ROM: WNL MP: 2 Dentition: Caps Pulmonary: Pulmonary: COPD CV/HEM: CV/HEM: HTN : : Chronic renal failure Hepatic: Hepatic: None reported GI: GI: GERD Metabolic: Metabolic: Hyperlipidemia and Thyroid Musc/skel: Musc/skel: None reported Neuropsych: Neuropsych: None reported Anesthetic Plan: ASA status: 3 Anesthesia: General Meds/Allergies Current Medications: Current Medications Generic Name Dose Route Start Last Admin Trade Name Freq PRN Reason Stop Dose Admin Sodium Chloride 1,000 mls @ 30 ml s/hr 04/24/21 06:15 04/24/21 06:32 Sodium Chloride 0.9% IV 04/25/21 06:14 30 mls/hr .Q24H AZRA Administration PFSH Anesthesia PFSH: Medical History AAA (abdominal aortic aneurysm) Atrial fibrillation BPH (benign prostatic hyperplasia) BPH NOS w ur obs/LUTS Chronic kidney disease, stage IV (severe) Chronic migraine CKD (chronic kidney disease) Colon polyp Depression Dizziness Erectile dysfunction HTN (hypertension) Hypogonadism Hypothyroidism Renal cyst Surgical History History of loop recorder History of pancreatic surgery Biopsy Previous back surgery S/P cholecystectomy Family History Father , 67 y/o Heart disease Myocardial infarction Mother Arthritis Depression Anxiety Hypertension Hearing loss Social History Second hand smoke exposure: Yes Alcohol intake: current Alcohol intake frequency: holidays/special occasions only Adopted: No Caregiver/support person: No Lives independently: Yes Marital status: / Current occupational status: retired History of recent travel: No Data Anesthesia CBC & Chem 7: 04/24/21 06:39 Cardiac Studies: No Data to Display
[2021-04-24 07:01] LABS: Basophils % 0.5 %; Eosinophils # 0.5 10^3/uL (0.0-0.8); Eosinophils % 6.9 %; Hematocrit 24.3 % (42.0-52.0); Hemoglobin 7.6 g/dL (11.7-16.6); Lymphocytes # 1.4 10^3/uL (0.8-4.8); Lymphocytes % 20.7 %; Mean Corpuscular HGB Conc 31.3 g/dL (30.0-36.0); Mean Corpuscular Hemoglobin 31.7 pg (28.0-34.0); Mean Corpuscular Volume 101.3 fl (80-94); Monocytes # 0.6 10^3/uL (0.2-0.9); Monocytes % 8.6 %; Nucleated Red Blood Cells % 0 %; Platelet Count 154 10^3/cmm (130-400); Red Cell Distribution Width 14.4 % (12.1-15.1); White Blood Count 6.7 10^3/uL (4.0-10.0)
[2021-04-24] MEDS: lidocaine 2% INJ 20 mL INJECTION (07:53)
--- NOTE | 2021-04-24 08:12 | PM.OP ---
Operative Report Date of procedure: April 24, 2021 Pre-op Diagnosis: Severe chronic kidney disease Post-op diagnosis: same Post-op Findings: Normal-looking anatomy Procedure Done: Laparoscopic placement of peritoneal dialysis catheter Implants: Peritoneal dialysis catheter Surgeon: Fred Ortiz Diversified Crops Farmer: Survival Specialist Hank Logan Anesthesia: General (EZ Potts) Estimated blood loss (mL): 5 Condition: stable Disposition: same day Procedure: After identifying the patient in the holding area, was taken to the operating room, placed in supine position, intubated by anesthesia, prophylactic IV antibiotics were given per protocol. Subcutaneous heparin was given as well Time-out was done verifying the patient's name/date of /planned procedure and destination after the procedure, all were in agreement Prep and drape of the abdomen was done under the usual sterile technique, a Peng trocar technique was used through a supraumbilical skin incision, two stay sutures were applied to the fascia, and safe entrance to the abdominal cavity was achieved, low flow followed by a higher flow of CO2 gas, with pressure maintained to be at 15 mmHg and gas flow at 40 L/m Started by 0 scope 10 mm, no injuries were detected, followed by that a 30? millimeter scope was inserted , normal-looking viscera no evidence of injuries, under direct vision at the right lower quadrant ,midway between the right anterior superior spine and the umbilicus,a small skin incision was created, the introducer and the sheath that comes with the dialysis catheter kit was inserted under direct visualization, was inserted in a tangential trajectory pointing towards the pelvis avoiding the right inferior epigastric artery, for future placement of the tunneled catheter, the introducer was removed, and the catheter after being flushed was passed through the sheath, at this point the sheath was peeled off, ,another 5 mm trocar was inserted in the right lower quadrant, and a laparoscopic Alejandro instrument (Bullet Forceps)was introduced to hold onto the catheter and situating it safely at Godwin pouch, the other side of the dialysis catheter was hooked to a tunneler that comes with the kit, and a tunnel was created to allow the tube to pass underneath the skin and subcutaneous tissues, preserving the 2 cuffs underneath to prevent slippage and migration of the tube, tunneler was removed after bringing the tube out of the skin at the right lateral region of the abdomen, that end of the tube was connected to a metallic hub to facilitate dialysis, the tube was flushed with 30 mL of sterile saline. Final look survey laparoscopy was done showing no injuries, closure of the supraumbilical fascial defect under direct visualization with Gary Law fascial closure device using #1 PDS sutures, all trocars then were taken out under vision, gas was allowed to escape,followed by 3-0 Vicryl followed by 4-0 Monocryl to close the other skin incisions, all by Dermabond. drain dressing was applied and tape, the tube was thus secured to the abdominal wall Lidocaine 2% was injected at the site of the incisions Patient tolerated the procedure well, extubated and was taken to the recovery room in stable condition I was present for the whole entire procedure
[2021-04-24] MEDS: HYDROcodone-acetaminophen 5-325 mg Tablet 1 TAB PO (09:54)
--- NOTE | 2021-04-24 15:35 | ANE.PACU2 ---
Inpatient post-anesthesia follow up: Airway intact: Yes Vital signs: Temperature 97.4 F Pulse Rate 55 Respiratory Rate 18 Blood Pressure 140/72 Pulse Oximetry 96 Oxygen Delivery Me thod Room Air Oxygen Flow Rate 6 Fraction of Inspir ed Oxygen Hydration adequate: Yes Nausea and vomiting: No Pain level: 1 Mental status: Baseline
== END 2021-04-24 10:15 | disposition home or self-care (01) ==
PROVIDERS: Anesthesiology; PCP Family Medicine; Visit Provider Surgery
PROC: 0WHG43Z Insertion of Infusion Device into Peritoneal Cavity, Percutaneous Endoscopic Approach (ICD-10-PCS; CPT 49324; principal; 2021-04-24 07:00)
DX: I12.9 Hypertensive chronic kidney disease with stage 1 through stage 4 chronic kidney disease, or unspecified chronic kidney disease (principal); N18.9 Chronic kidney disease, unspecified; K21.9 Gastro-esophageal reflux disease without esophagitis; E78.5 Hyperlipidemia, unspecified; I48.91 Unspecified atrial fibrillation; N40.1 Benign prostatic hyperplasia with lower urinary tract symptoms; N13.8 Other obstructive and reflux uropathy; E03.9 Hypothyroidism, unspecified; Z82.49 Family history of ischemic heart disease and other diseases of the circulatory system
CPT/HCPCS: 36561; 36415; 51702; 85025; 93005; 96372; J0330; J0690; J1100; J1644; J2001; J2250; J2370; J2405; J2704; J3010; J3490; J7030

== ENCOUNTER → 2021-05-02 10:00 | Outpatient (BNVA) | payer MEDICARE, SELFPAY | PROVIDERS: PCP Family Medicine; Visit Provider Internal Medicine Medical Oncology | DX: N18.4 Chronic kidney disease, stage 4 (severe) (principal); D63.1 Anemia in chronic kidney disease | CPT/HCPCS: 82668; 83010; 83615; 85007; 85027; 85045; 86850; 86900 ==

== ENCOUNTER → 2021-05-07 14:40 | Outpatient (BNVA) | payer MEDICARE, SELFPAY | PROVIDERS: PCP Family Medicine; Referring Provider Family Medicine; Visit Provider Specialist | DX: M25.511 Pain in right shoulder (principal) | CPT/HCPCS: 73030 ==

== ENCOUNTER 2021-05-09 09:42 | Outpatient (CLI) | payer MEDICARE, SELFPAY ==
[2021-05-09 10:34] LABS: Basophils % 0.3 %; Eosinophils # 0.4 10^3/uL (0.0-0.8); Eosinophils % 6.3 %; Hematocrit 22.4 % (42.0-52.0); Hemoglobin 7.4 g/dL (11.7-16.6); Lymphocytes # 1.3 10^3/uL (0.8-4.8); Lymphocytes % 22.6 %; Mean Corpuscular Hemoglobin 32.5 pg (28.0-34.0); Mean Corpuscular Volume 98.2 fl (80-94); Mean Platelet Volume 10.6 fL (7.4-10.4); Monocytes # 0.4 10^3/uL (0.2-0.9); Monocytes % 7.5 %; Neutrophils # 3.71 10^3/uL (1.8-7.7); Nucleated Red Blood Cells % 0 %; Platelet Count 201 10^3/cmm (130-400); Red Blood Count 2.28 10^6/uL (4.1-5.3); White Blood Count 5.9 10^3/uL (4.0-10.0)
== END 2021-05-09 09:43 | disposition home or self-care (01) ==
LOC: ONCMED 09:42
PROVIDERS: PCP Family Medicine; Visit Provider Internal Medicine Medical Oncology
DX: D64.9 Anemia, unspecified (principal)
CPT/HCPCS: 36415; 85025; 86850; 86900; 86920

== ENCOUNTER 2021-05-11 06:31 | Outpatient (CLI) | payer MEDICARE, SELFPAY ==
[2021-05-11] MEDS: sodium chloride 0.9% 250 ML 999 ML IV (08:24)
[2021-05-11] MEDS: acetaminophen 325 mg Tablet 650 MG PO (08:24)
[2021-05-11] MEDS: diphenhydrAMINE 25 mg Capsule PO (08:24)
[2021-05-11 08:30] VITALS: PULSE 84; RESP 18; TEMP 36.6; O2SAT 96
[2021-05-11 10:25] VITALS: BP 140/88; PULSE 84; RESP 18; TEMP 36.6; O2SAT 98
[2021-05-11] MEDS: FUROsemide 10 mg/mL SDV 2mL 20 MG IV (10:25)
[2021-05-11] MEDS: FUROsemide 10 mg/mL SDV 2mL IV (12:15)
== END 2021-05-11 06:32 | disposition home or self-care (01) ==
PROVIDERS: PCP Family Medicine; Visit Provider Internal Medicine Medical Oncology
DX: N18.5 Chronic kidney disease, stage 5 (principal); D63.1 Anemia in chronic kidney disease; I12.0 Hypertensive chronic kidney disease with stage 5 chronic kidney disease or end stage renal disease; I48.91 Unspecified atrial fibrillation; I71.4 Abdominal aortic aneurysm, without rupture; E03.9 Hypothyroidism, unspecified; N40.0 Benign prostatic hyperplasia without lower urinary tract symptoms; F51.04 Psychophysiologic insomnia; F41.9 Anxiety disorder, unspecified; F32.9 Major depressive disorder, single episode, unspecified; Z79.899 Other long term (current) drug therapy
CPT/HCPCS: 36430; 86850; 86900; 86920; 96374; J1940; J7050; P9016

== ENCOUNTER 2021-05-24 14:23 | Outpatient (CLI) | payer MEDICARE, SELFPAY | END 2021-05-24 14:24 | disposition home or self-care (01) | LOC: ONCMED 14:27 | PROVIDERS: PCP Family Medicine; Visit Provider Internal Medicine Medical Oncology | DX: I12.0 Hypertensive chronic kidney disease with stage 5 chronic kidney disease or end stage renal disease (principal); N18.5 Chronic kidney disease, stage 5; D63.1 Anemia in chronic kidney disease; Z79.899 Other long term (current) drug therapy | CPT/HCPCS: 96372; Q4081 ==

== ENCOUNTER 2021-05-31 13:57 | Outpatient (CLI) | payer MEDICARE, SELFPAY ==
[2021-05-31] MEDS: epoetin alfa 40,000 Unit/mL INJ (non-esrd, onc only) 40000 UNIT SUBCUT (14:15)
== END 2021-05-31 13:58 | disposition home or self-care (01) ==
LOC: ONCMED 13:59
PROVIDERS: PCP Family Medicine; Visit Provider Internal Medicine Hematology & Oncology
DX: I12.0 Hypertensive chronic kidney disease with stage 5 chronic kidney disease or end stage renal disease (principal); N18.5 Chronic kidney disease, stage 5; D63.1 Anemia in chronic kidney disease; Z79.899 Other long term (current) drug therapy
CPT/HCPCS: 96372; J0885

== ENCOUNTER → 2021-06-01 09:51 | Outpatient (BNVA) | payer MEDICARE, SELFPAY | PROVIDERS: PCP Internal Medicine Nephrology; Visit Provider Internal Medicine Nephrology | DX: N18.6 End stage renal disease (principal); D63.1 Anemia in chronic kidney disease | CPT/HCPCS: 80069; 82043; 82306; 82310; 83970; 85025; 86705; 86706; 87340 ==

== ENCOUNTER → 2021-06-29 09:27 | Outpatient (BNVA) | payer MEDICARE, SELFPAY | PROVIDERS: PCP Internal Medicine Nephrology; Visit Provider Internal Medicine | DX: I48.21 Permanent atrial fibrillation (principal); I10 Essential (primary) hypertension; I71.4 Abdominal aortic aneurysm, without rupture; F17.200 Nicotine dependence, unspecified, uncomplicated | CPT/HCPCS: 99214 ==

== ENCOUNTER 2021-09-18 08:11 | Outpatient (CLI) | payer MEDICARE, SELFPAY ==
[2021-09-18 09:29] LABS: Testosterone Total 166.6 ng/dL (193-740)
== END 2021-09-18 08:12 | disposition home or self-care (01) ==
LOC: LAB 08:12
PROVIDERS: PCP Internal Medicine Nephrology; Visit Provider Urology
DX: R79.89 Other specified abnormal findings of blood chemistry (principal); N40.1 Benign prostatic hyperplasia with lower urinary tract symptoms; R39.11 Hesitancy of micturition
CPT/HCPCS: 36415; 52000; 81003; 84403; 99213

== ENCOUNTER 2021-10-03 06:56 | Outpatient (CLI) | payer MEDICARE, SELFPAY ==
--- NOTE | 2021-10-03 07:22 | MR_ITS ---
WS: [id number] MRI RIGHT SHOULDER HISTORY: M25.511 - Pain in right shoulder COMPARISON: None available. TECHNIQUE: Multiplanar sequences of the shoulder joint are submitted. Mild AC joint arthritis. Narrowing of the joint space with a small amount of fluid. Hypertrophic soft tissue and osteophyte formation with mild encroachment upon the supraspinatus tendon. 5 mm distal ac romial osteophyte causing mild subacromial encroachment. No os acromion. Biceps tendon remains at the bicipital groove. Increased signal in the biceps tendon consistent with partial tear. 3 mm insertion site tear of the supraspinatus tendon. No retraction or atrophy. T2 striations in the mid to distal subscapularis tendon. No tear is identified although there is increased signal and thic kening of the subscapularis tendon. Infraspinatus tendon intact. No labral tear. MR/MR shoulder RT wo con* [id number] IMPRESSION: 1. Mild AC joint arthritis. 2. Partial tear biceps tendon in the bicipital groove. 3. 3 mm insertion site supraspinatus tendon. No retraction or atrophy. 4. Moderate tendinopathy involving the mid to distal subscapularis tendon. Mar ked increased signal within the tendon but cannot confirm tear.
== END 2021-10-03 06:57 | disposition home or self-care (01) ==
LOC: RAD 06:57
PROVIDERS: PCP Internal Medicine Nephrology; Visit Provider Specialist
DX: M25.511 Pain in right shoulder (principal); M19.011 Primary osteoarthritis, right shoulder; S46.211A Strain of muscle, fascia and tendon of other parts of biceps, right arm, initial encounter; M75.81 Other shoulder lesions, right shoulder
CPT/HCPCS: 73221

== ENCOUNTER → 2021-11-13 16:53 | Outpatient (BNVA) | payer MEDICARE, SELFPAY | PROVIDERS: PCP Internal Medicine Nephrology; Visit Provider Family Medicine | DX: E03.8 Other specified hypothyroidism (principal); E78.5 Hyperlipidemia, unspecified; I10 Essential (primary) hypertension | CPT/HCPCS: 80053; 80061; 84403; 84443; G0103 ==

== ENCOUNTER → 2021-11-22 17:31 | Outpatient (BNVA) | payer MEDICARE, SELFPAY | PROVIDERS: PCP Internal Medicine Nephrology; Visit Provider Family Medicine | DX: R79.89 Other specified abnormal findings of blood chemistry (principal); R89.9 Unspecified abnormal finding in specimens from other organs, systems and tissues | CPT/HCPCS: 84403 ==

== ENCOUNTER 2021-12-20 09:53 | Outpatient (CLI) | payer MEDICARE, SELFPAY ==
--- NOTE | 2021-12-20 10:55 | XR_ITS ---
WS: [id number] Pelvis, AP view, 12/20/2021 Clinical Data: MALPOSITION OF PERITONEAL CATHETER Comparison: None. Findings: No fractures or dislocations are seen. The SI joints and pubic symphysis are intact. The soft tissues are not remarkable. The peritoneal catheter appears to be curled in the pelvis. Vascular calcifications are seen. XR/XR pelvis 1-2V* [id number] Impression: Peritoneal catheter ends in pelvis.
--- NOTE | 2021-12-20 10:55 | XR_ITS ---
WS: [id number] Abdomen series, Flat and upright 12/20/2021 Clinical Data: MALPOSITION OF PERITONEAL CATHETER Comparison: None. Findings: No free air is seen beneath the diaphragms. No abnormal intra-abdominal masses or calcifica tions are seen. There is a peritoneal catheter which is curled in the distal abdomen. There are clips in the right upper quadrant from a cholecystectomy. There is an infrarenal abdominal aortic aneurysm . There is air in the small bowel and colon but no dilatation or obstruction. There is a dextroscolio sis of the lumbar spine. XR/XR abdomen min 2V [id number] Impression: 1. Peritoneal catheter whose distal tip is curled in the lower abdomen. 2. Moderate generalized ileus. 3. Infrarenal abdominal aortic aneurysm.
== END 2021-12-20 09:54 | disposition home or self-care (01) ==
LOC: RAD 09:55
PROVIDERS: PCP Internal Medicine Nephrology; Visit Provider Internal Medicine Nephrology
DX: T85.621A Displacement of intraperitoneal dialysis catheter, initial encounter (principal); R10.9 Unspecified abdominal pain; Y83.8 Other surgical procedures as the cause of abnormal reaction of the patient, or of later complication, without mention of misadventure at the time of the procedure
CPT/HCPCS: 72170; 74019

== ENCOUNTER → 2022-01-09 10:00 | Outpatient (BNVA) | payer MEDICARE, SELFPAY | PROVIDERS: PCP Internal Medicine Nephrology; Visit Provider Nurse Practitioner Family | DX: I48.21 Permanent atrial fibrillation (principal); I71.4 Abdominal aortic aneurysm, without rupture; I12.9 Hypertensive chronic kidney disease with stage 1 through stage 4 chronic kidney disease, or unspecified chronic kidney disease; F17.200 Nicotine dependence, unspecified, uncomplicated; N18.4 Chronic kidney disease, stage 4 (severe); Z99.2 Dependence on renal dialysis | CPT/HCPCS: 99214 ==

== ENCOUNTER 2022-02-28 08:21 | Outpatient (CLI) | payer MEDICARE, SELFPAY ==
--- NOTE | 2022-02-28 09:30 | CT_ITS ---
WS: [id number] CT ABDOMEN TECHNIQUE: Noncontrast CT of the abdomen with coronal and sagittal reformatted images. CLINICAL INFORMATION: AAA, 4cm COMPARISON: CT 2020 DLP: 411.[address] scans at [facility] use at least one of these dose optimization techniques: automated e xposure control; mA and/or kV adjustment per patient size (includes targeted exams where dose is matc hed to clinical indication); or iterative reconstruction. FINDINGS: Tortuous infrarenal abdominal aortic aneurysm with moderate calcification. Aneurysm measures approxim ately 4.3 x 4.2 cm unchanged from previous. Dense calcification at the celiac and SMA origins. Lung bases are well aerated. Noncontrast liver is normal. Cholecystectomy clips. Normal GE junction. Splenic granulomas. Adrenal glands are normal. No hydronephrosis in either kidney. Bilateral renal co rtical atrophy. Nonspecific increased attenuation cortical renal lesions likely hemorrhagic or protei naceous cysts. These are similar to previous. This can be followed up with ultrasound.Stable low-atte nuation small pancreatic lesions previously described and unchanged since the MRI in 2017. CT/CT abdomen wo con [id number] IMPRESSION: 1. No change in the infrarenal abdominal aortic aneurysm measuring 4.3 x 4.2 c m AP by transverse. 2. Prior cholecystectomy. 3. Renal cortical atrophy with bilateral increased attenuation renal cortical lesions likely hemorrhagic or proteinaceous cysts but indeterminant. This can b e followed up with ultrasound. 4. Stable low-attenuation small pancreatic lesions previously described and un changed since the MRI in 2017.
== END 2022-02-28 08:22 | disposition home or self-care (01) ==
PROVIDERS: PCP Internal Medicine Nephrology; Visit Provider Nurse Practitioner Family
DX: I71.40 Abdominal aortic aneurysm, without rupture, unspecified (principal); N26.1 Atrophy of kidney (terminal); K86.89 Other specified diseases of pancreas
CPT/HCPCS: 74150

== ENCOUNTER → 2022-03-26 12:37 | Outpatient (BNVA) | payer MEDICARE, SELFPAY | PROVIDERS: PCP Family Medicine; Visit Provider Family Medicine | DX: R19.7 Diarrhea, unspecified (principal) | CPT/HCPCS: 82274; 87493; 87506 ==

== ENCOUNTER → 2022-04-11 09:42 | Outpatient (BNVA) | payer MEDICARE, SELFPAY | PROVIDERS: PCP Family Medicine; Visit Provider Nurse Practitioner Family | DX: R10.32 Left lower quadrant pain (principal); K56.7 Ileus, unspecified; Z96.89 Presence of other specified functional implants | CPT/HCPCS: 74018 ==

== ENCOUNTER 2022-06-05 11:55 | Outpatient (CLI) | payer MEDICARE, SELFPAY ==
--- NOTE | 2022-06-05 12:15 | US_ITS ---
WS: [id number] Complete ABDOMINAL ULTRASOUND HISTORY: kidney cysts on ct COMPARISON: CT 02/28/2022, prior renal ultrasound 01/01/2021 Liver: 14.6 cm in length. Liver is normal size and echogenicity with no mass or intrahepatic dilatati on. Portal Vein: Normal hepatopetal flow with monophasic waveform. Gallbladder: Prior cholecystectomy. Common bile duct is mildly enlarged. Pancreas: Obscured aeration of the pancreas. CBD: 0.7 cm. Right kidney: 8.3 cm x 3.9 cm x 4.1 cm. Mild atrophy and increased echogenicity of the RIGHT kidney. No hydronephrosis or mass. Exophytic cyst superior pole of the maximum diameter of 1.3 cm. Left kidney: 8.4 cm x 4.1 cm x 4.6 cm. Mild atrophy. Increased echogenicity throughout the kidney. T he kidney is poorly visualized due to its position. No hydronephrosis. There is an exophytic cyst fro m the lateral mid kidney. Cyst measures 2.0 x 1.5 x 1.5 cm. The parenchymal cyst previously described is not as well visualized. Spleen: Not identified. On the prior CT noted to be high within the abdomen. Extensive atherosclerosis aorta. Patient has a known abdominal aortic aneurysm extending over a lengt h of 8.3 cm maximum diameter 4.3 cm. Similar to the prior measurements of 02/28/2022. No ascites. US/US abdomen complete* [id number] IMPRESSION: 1. Bilateral renal cysts. No solid masses are identified. Evaluation of the dneys is limited by ultrasound. 2. Mild renal atrophy and medical renal disease. 3. Known abdominal aortic aneurysm, unchanged since 04/30/2021. 4. Prior cholecystectomy.
== END 2022-06-05 11:56 | disposition home or self-care (01) ==
LOC: RAD 11:59
PROVIDERS: PCP Family Medicine; Visit Provider Family Medicine
DX: N28.1 Cyst of kidney, acquired (principal); N26.1 Atrophy of kidney (terminal); M25.811 Other specified joint disorders, right shoulder; M75.81 Other shoulder lesions, right shoulder
CPT/HCPCS: 20610; 76700; 99213; J1100; J2795; J3301

== ENCOUNTER 2022-06-25 06:00 | Outpatient (RCR) | payer MEDICARE, SELFPAY | END 2022-07-12 23:59 | disposition home or self-care (01) | LOC: TPT 06:00 | PROVIDERS: PCP Family Medicine; Visit Provider Specialist | DX: M25.511 Pain in right shoulder (principal) | CPT/HCPCS: 97110; 97140; 97162 ==

== ENCOUNTER 2022-07-13 06:00 | Outpatient (RCR) | payer MEDICARE, SELFPAY | END 2022-08-02 23:59 | disposition home or self-care (01) | LOC: TPT 06:00 | PROVIDERS: PCP Family Medicine; Visit Provider Specialist | DX: M25.511 Pain in right shoulder (principal) | CPT/HCPCS: 97110; 97140 ==

== ENCOUNTER 2022-07-30 12:48 | Outpatient (CLI) | payer MEDICARE, SELFPAY ==
--- NOTE | 2022-07-30 13:00 | CT_ITS ---
WS: [id number] CT ANGIOGRAPHY ABDOMEN AORTA HISTORY: AAA TECHNIQUE: CT angiogram is performed during IV injection. Reformation images reviewed. All CT scans [employer] use at least one of these dose optimization techniques: automated exposure contro l; mA and/or kV adjustment per patient size (includes targeted exams where dose is matched to clinica l indication); or iterative reconstruction. CONTRAST: Omnipaque 350; 100 mL IV. DLP: 143.27 mGy.cm COMPARISON: 02/28/2022, ultrasound 06/05/2022 Hyperinflated lungs with emphysema. Visualized heart is slightly enlarged. The entire heart is not vi sualized. Small hiatal hernia. Abdominal aorta: Diffusely ectatic aorta with calcified plaque and intimal thickening. Infrarenal ane urysm extends over length of 6.7 cm. AP diameter 4.7 cm in transverse diameter 4.6 cm. Asymmetric thr ombus along the posterior aneurysm. Sharp angulation the proximal neck. Heavy calcified plaque extend ing into the bifurcation. Mild ectasia of the common iliac arteries but no aneurysm. Less than 50% st enosis in the proximal common iliac arteries. Additional calcification extends through the internal a nd external iliac arteries. Very small caliber RIGHT internal iliac artery. No significant stenosis involving the celiac axis. Very minimal narrowing of the SMA. Small caliber r enal arteries. Accessory renal artery on the LEFT. Both kidneys are atrophied with cortical thinning. No hydronephrosis. Exophytic mass from the mid RIGHT kidney measures 14 x 7 mm. This was hyperdense on the prior study. There is an additional cortical low-attenuation mass from the lower pole. Multipl e mildly dense masses in the LEFT kidney and these may be cysts but cannot be completely characterize d. Slightly increased in size since 02/28/2022. Splenic and hepatic granulomatous. Normal portal vein. Again noted are the multiple low-attenuation m asses within the pancreas. No pancreatic duct dilatation. The largest mass towards the pancreatic cory l measures 13 mm and is unchanged. No change in size since 2017. No adrenal mass. Stomach is markedly distended with fluid. No adrenal mass. Visualized GI tract is negative. Degenerative disc disease at L4-5. CT/CT angio abdomen [id number] IMPRESSION: 1. Infrarenal abdominal aortic aneurysm measures 4.7 x 4.6 cm and extends over a length of 6.7 cm. Aneurysm has slowly increased in size since 2017. Most rec ent measurement by CT on 02/28/2022 was 4.2 x 4.3 cm. 2. Asymmetric soft tissue plaque along the posterior aneurysm. 3. Bilateral renal atrophy with thinning of the cortex. Very small bilateral r enal arteries. 4. Stable cystic masses in the pancreas. 5. Indeterminate bilateral renal masses. Complex cyst versus neoplasm. Majorit y of these masses were present on prior studies. These are not completely cysti c.
[2022-07-30] MEDS: iohexol 350 mg/mL 500 mL Btl (per mL) IV (13:37)
== END 2022-07-30 12:49 | disposition home or self-care (01) ==
LOC: RAD 12:53
PROVIDERS: PCP Family Medicine; Visit Provider Internal Medicine
DX: I71.40 Abdominal aortic aneurysm, without rupture, unspecified (principal); I48.21 Permanent atrial fibrillation; D64.9 Anemia, unspecified; I10 Essential (primary) hypertension
CPT/HCPCS: 74175; 99214; Q9967

== ENCOUNTER 2022-08-01 13:18 | Oncology outpatient (recurring) (ONCR) | payer MEDICARE, SELFPAY ==
[2022-08-01 14:25] LABS: Basophils % 0.3 %; Eosinophils # 0.1 10^3/uL (0.0-0.8); Eosinophils % 1.4 %; Hematocrit 30.1 % (42.0-52.0); Hemoglobin 9.5 g/dL (11.7-16.6); Lymphocytes # 0.9 10^3/uL (0.8-4.8); Lymphocytes % 15.7 %; Mean Corpuscular HGB Conc 31.6 g/dL (30.0-36.0); Mean Corpuscular Hemoglobin 34.3 pg (28.0-34.0); Mean Corpuscular Volume 108.7 fl (80-94); Mean Platelet Volume 9.6 fL (7.4-10.4); Monocytes # 0.5 10^3/uL (0.2-0.9); Monocytes % 8.9 %; Neutrophils # 4.26 10^3/uL (1.8-7.7); Neutrophils % 72.8 %; Nucleated Red Blood Cells % 0 %; Platelet Count 158 10^3/cmm (130-400); Red Blood Count 2.77 10^6/uL (4.1-5.3); White Blood Count 5.9 10^3/uL (4.0-10.0)
[2022-08-01 14:33] LABS: Reticulocyte % 3.6 % (0.5-2.0)
[2022-08-01 14:35] LABS: LAB Peripheral Smear Sent for Review
[2022-08-01 14:50] LABS: Alanine Aminotransferase 24 U/L (0-41); Albumin Level 3.5 g/dL (3.5-5.2); Alkaline Phosphatase 68 U/L (40-130); Aspartate Amino Transferase 30 U/L (0-40); Blood Urea Nitrogen 49 mg/dL (8-23); Calcium 8.7 mg/dL (8.5-10.5); Carbon Dioxide 22 mmol/L (22-29); Chloride 107 mmol/L (98-107); Globulin 2.5 g/dL (1.3-4.6); Glucose 169 mg/dL (65-115); Iron 103 ug/dL (59-158); Lactate Dehydrogenase 177 U/L (135-225); Osmolality Calculated 309 mOsm/kg (285-295); Percent Saturation 59.1 % (20-50); Sodium 141 mmol/L (136-145); Total Bilirubin 0.2 mg/dL (0.15-1.2); Total Iron Binding Capacity 174 mcg/dl; Unsaturated Iron Binding 71 ug/dL (112-347)
[2022-08-01 15:05] LABS: Vitamin B12 785 pg/mL (232-1245)
[2022-08-01 15:18] LABS: Ferritin 1256 ng/mL (30-400)
[2022-08-01 18:02] LABS: Folate Level > 20.0 ng/mL (4.5-32.2)
[2022-08-02 08:30] LABS: PROTEIN, TOTAL 5.4 g/dL (6.1-8.1)
[2022-08-02 11:54] LABS: ALBUMIN 3.1 g/dL (3.8-4.8); ALPHA 1 GLOBULIN 0.3 g/dL (0.2-0.3); ALPHA 2 GLOBULIN 0.7 g/dL (0.5-0.9); BETA 1 GLOBULIN 0.3 g/dL (0.4-0.6); BETA 2 GLOBULIN 0.3 g/dL (0.2-0.5); GAMMA GLOBULIN 0.7 g/dL (0.8-1.7)
[2022-08-02 14:49] LABS: KAPPA LIGHT CHAIN, FREE, SERUM 122.9 mg/L (3.3-19.4); KAPPA/LAMBDA LIGHT CHAINS FREE 0.86 (0.26-1.65); LAMBDA LIGHT CHAIN, FREE, SERU 142.9 mg/L (5.7-26.3)
== END 2022-08-11 23:59 | disposition home or self-care (01) ==
LOC: ONCMED 13:19
PROVIDERS: PCP Family Medicine; Visit Provider Internal Medicine Medical Oncology
DX: I12.9 Hypertensive chronic kidney disease with stage 1 through stage 4 chronic kidney disease, or unspecified chronic kidney disease (principal); N18.4 Chronic kidney disease, stage 4 (severe); D63.1 Anemia in chronic kidney disease; Z99.2 Dependence on renal dialysis; Z79.899 Other long term (current) drug therapy; F17.210 Nicotine dependence, cigarettes, uncomplicated
CPT/HCPCS: 36415; 80053; 82607; 82728; 82746; 83010; 83540; 83550; 83615; 83883; 84155; 84165; 85025; 85045; 86880; 99215

== ENCOUNTER → 2022-09-23 14:29 | Outpatient (BNVA) | payer MEDICARE, SELFPAY | PROVIDERS: PCP Family Medicine; Visit Provider Urology | DX: N40.1 Benign prostatic hyperplasia with lower urinary tract symptoms (principal) | CPT/HCPCS: 84403 ==

== ENCOUNTER → 2022-09-26 10:58 | Outpatient (BNVA) | payer MEDICARE, SELFPAY | PROVIDERS: PCP Family Medicine; Visit Provider Urology | DX: N28.1 Cyst of kidney, acquired (principal); N40.0 Benign prostatic hyperplasia without lower urinary tract symptoms | CPT/HCPCS: 51798; 81003; 99213 ==

== ENCOUNTER 2022-10-08 13:31 | Oncology outpatient (recurring) (ONCR) | payer MEDICARE, SELFPAY ==
--- OUTSIDE RECORDS SUMMARY | 2022-10-08 13:35 | XMS_ITS ---
Author Name Ralph Maritza Address [address] [place] [id number] Phone [phone] Organization [facility] e, NA DOCUMENT DISCLAIMER Multiple document versions may exist, please be sure you review the latest version. The information in the [facility] Progress Note Document represents a providers documented clinical note containing certain health and medical information. It may not contain the complete medical history for the patient and should be independently verified. The represented time in the document is Eastern Time PROVIDER ROUNDING NOTE PD Patient:?ALEX?FRANCISCO,?1945,?77y,?M Dialysis?Location:[facility] Attending?Road Production General Manager:?Lilliam?Jae Service?Date:?2022 Service?Provider:?Maritza?Ralph,? I?met?face?to?face?with?the?patient?today. 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 VITALS?ASSESSMENT Vitals?measured?in-clinic. BP?Sit ??05/22/2022:?156/83 ??04/22/2022:?164/78 ??04/16/2022:?164/78 Weight?(kg) ??05/22/2022:?57.9 ??04/22/2022:?56.9 ??04/16/2022:?55.7 Temp ??05/22/2022:?97.4 Respirations ??05/22/2022:?21 Pulse ??05/22/2022:?56 Height ??04/16/2022:?5'?10'' TREATMENT?ASSESSMENT Blood?pressure?controlled.?No?changes?indicated.? BP ??05/26/2022:?109/66 ??05/25/2022:?156/79 ??05/24/2022:?155/56 FLUID?ASSESSMENT Fluid?status?acceptable.?Weight?gain?acceptable.?No?changes?indicated.? EDW?(kg) ??05/26/2022:?52 ??05/25/2022:?52 ??05/24/2022:?52 Weight?(kg) ??05/26/2022:?53.6 ??05/25/2022:?53.92 ??05/24/2022:?53.92 EDW?Variance ??05/26/2022:?1.6 ??05/25/2022:?1.92 ??05/24/2022:?1.92 DIALYSIS?PRESCRIPTION ??CAPD?7x?Week?Start?date:?05/21/22 ??Day?Fill:?1999 ??Exchanges:?1 ??EDW:?52 ??Night?Fill:? ??Min?Dwell:?9:20 ??Rx?updated?on:?05/21/2022 ADEQUACY?ASSESSMENT Adequacy?target?met.?Prescription?compliance?acceptable.?No?changes?indicated.? PD?Kt/V,?Total ??03/14/2022:?2.6 ??12/20/2021:?2.24 ACCESS?ASSESSMENT ??Access?Type:?PDCatheter ??Access?SubType:?Double?Cuff?Coiled ??Access?Status:?Active?(In?Use)?-?06/04/2021 ??Access?Location:?Right?Lower?Quadrant ??Placed:?04/24/2021 Access?perfect.?Exit?site?looks?clean.?Tunnel?tract?without& #160;sign?of?infection.?Effluent?clear. ANEMIA?ASSESSMENT Anemia?reviewed.?Anemia?targets?met.? HGB,?TSAT ??05/22/2022:?10.1,?71.0 ??04/30/2022:?11.6,?- ??04/16/2022:?12.0,?55.0 ?? Ferritin ??04/16/2022:?1046.0 Mircera,?Sub?Q?(mcg) ??05/22/2022:?30 Iron?Sucrose?(Venofer)?(mg) ??03/14/2022:?200 ??03/06/2022:?200 BMM?ASSESSMENT PTH?within?target.?Bone?and?mineral?metabolism?parameters?re viewed.?Calcium?controlled.?Phosphorus?controlled.? Phosphorus,?Calcium ??05/22/2022:?5.0,?8.5 ??04/16/2022:?3.4,?8.5 ??03/14/2022:?4.2,?9.1 ?? PTH,?Intact ??04/16/2022:?211.0 ??01/15/2022:?405.0 NUTRITION?ASSESSMENT Nutrition?reviewed.?Caloric?intake?addressed.?Referred?to?dietiti an?for?further?counseling.?Patient?taking?protein?supplements.&#1 60;Potassium?controlled.? Albumin,?Potassium ??05/22/2022:?3.5,?5.7 ??04/16/2022:?3.1,?5.2 ??03/14/2022:?3.9,?5.5 PHYSICAL?EXAM Exam?Performed.?Vital?Signs?Reviewed.?Lungs?-?Clear.?CV&#160 ;-?Blood?pressure?noted.?CV?-?RRR.?EXT?-?No?edema. ?ABD?-?Bowel?sounds?present.?ABD?-?Soft/nontender. DIAGNOSIS Chief?Complaint:?N18.6?End?stage?renal?disease Patient?is?stable.?Patient?discussed?with?nursing. ADDITIONAL?DIAGNOSES Additional?conditions?addressed?during?visit: ??Z99.2?Dependence?on?renal?dialysis ??Comments:?See?MCP?note?above?N18.6?End?stage?renal?disease ??Comments:?See?MCP?note?above Patient?data?updated?2022?at?11:03?AM Signed?By:?Ralph,?Maritza,???on?2022?11:09:00?AM END OF DOCUMENT
--- OUTSIDE RECORDS SUMMARY | 2022-10-08 13:35 | XMS_ITS ---
Author Name Ralph Maritza Address [address] [place] [address] Phone [phone] Organization [facility], NA DOCUMENT DISCLAIMER Multiple document versions may exist, please be sure you review the latest version. The information in the [facility] Progress Note Document represents a providers documented clinical note containing certain health and medical information. It may not contain the complete medical history for the patient and should be independently verified. The represented time in the document is Eastern Time PROVIDER ROUNDING NOTE PD Patient:?ALEX?FRANCISCO,?1945,?77y,?M Dialysis?Location:[facility] Attending?Reflexologist:?Lilliam?Jae Service?Date:?07/30/2022 Service?Provider:?Maritza?Ralph,? I?met?face?to?face?with?the?patient?today. 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 CTA?planned?for?AAA Medications?and?labs?reviewed. VITALS?ASSESSMENT Vitals?measured?in-clinic. BP?Sit ??07/30/2022:?135/72 ??06/17/2022:?127/70 ??06/13/2022:?172/78 Weight?(kg) ??07/30/2022:?56.6 ??06/17/2022:?55 ??06/13/2022:?124 Temp ??07/30/2022:?98 Respirations ??07/30/2022:?16 Pulse ??07/30/2022:?63 Height ??04/16/2022:?5'?10'' TREATMENT?ASSESSMENT Blood?pressure?controlled.?No?changes?indicated.? BP ??06/12/2022:?143/76 ??06/11/2022:?139/71 ??06/10/2022:?136/68 FLUID?ASSESSMENT Fluid?status?acceptable.?Weight?gain?acceptable.?No?changes?indicated.? EDW?(kg) ??06/12/2022:?52 ??06/11/2022:?52 ??06/10/2022:?52 Weight?(kg) ??06/12/2022:?53.65 ??06/11/2022:?53.51 ??06/10/2022:?54.37 EDW?Variance ??06/12/2022:?1.65 ??06/11/2022:?1.51 ??06/10/2022:?2.37 DIALYSIS?PRESCRIPTION ??CAPD?7x?Week?Start?date:?06/27/22 ??Day?Fill:?1999 ??Exchanges:?1 ??EDW:?55 ??Night?Fill:? ??Min?Dwell:?9:20 ??Rx?updated?on:?06/27/2022 ADEQUACY?ASSESSMENT Adequacy?target?met.?Prescription?compliance?acceptable.?No?changes?indicated.? PD?Kt/V,?Total ??06/13/2022:?2.28 ??03/14/2022:?2.6 ACCESS?ASSESSMENT ??Access?Type:?PDCatheter ??Access?SubType:?Double?Cuff?Coiled ??Access?Status:?Active?(In?Use)?-?06/04/2021 ??Access?Location:?Right?Lower?Quadrant ??Placed:?04/24/2021 Access?perfect.?Exit?site?looks?clean.?Tunnel?tract?without& #160;sign?of?infection.?Effluent?clear. ANEMIA?ASSESSMENT Comments:?Will?discuss?with?Bacilio?-?hematology.?He? has?had?a?bone?marrow?biopsy?in?the?past?but?he&#1 60;is?not?sure?what?the?results?were.? I?am?concerned?something?else?is?driving?this?anemia.? CHEMA?adjusted?per?protocol.?Anemia?targets?met.? HGB,?TSAT ??07/16/2022:?8.7,?39.0 ??06/13/2022:?10.1,?41.0 ??05/22/2022:?10.1,?71.0 ?? Ferritin ??07/16/2022:?1187.0 ??04/16/2022:?1046.0 Mircera,?Sub?Q?(mcg) ??07/29/2022:?150 ??07/16/2022:?100 ??06/17/2022:?100 Iron?Sucrose?(Venofer)?(mg) ??07/16/2022:?200 BMM?ASSESSMENT PTH?within?target.?Bone?and?mineral?metabolism?parameters?re viewed.?Calcium?controlled.?Phosphorus?controlled.? Phosphorus,?Calcium ??07/16/2022:?4.1,?7.8 ??06/13/2022:?4.0,?8.4 ??05/22/2022:?5.0,?8.5 ?? PTH,?Intact ??07/16/2022:?267.0 ??04/16/2022:?211.0 ??01/15/2022:?405.0 NUTRITION?ASSESSMENT Nutrition?reviewed.?Caloric?intake?addressed.?Referred?to?dietiti an?for?further?counseling.?Patient?taking?protein?supplements.&#1 60;Potassium?controlled.? Albumin,?Potassium ??07/16/2022:?3.2,?5.5 ??06/13/2022:?3.4,?5.0 ??05/22/2022:?3.5,?5.7 PHYSICAL?EXAM Exam?Performed.?Vital?Signs?Reviewed.?Lungs?-?Clear.?CV&#160 ;-?Blood?pressure?noted.?CV?-?RRR.?EXT?-?No?edema. DIAGNOSIS Chief?Complaint:?N18.6?End?stage?renal?disease Patient?is?stable.?Patient?discussed?with?nursing. Patient?data?updated?07/30/2022?at?2:36?PM Signed?By:?Ralph,?Maritza,???on?07/30/2022?2:45:37?PM END OF DOCUMENT
--- OUTSIDE RECORDS SUMMARY | 2022-10-08 13:35 | XMS_ITS ---
Author Name Lilliam Rowe Address [address] [place] [address] Phone [phone] Organization [facility], NA DOCUMENT DISCLAIMER Multiple document versions may exist, please be sure you review the latest version. The information in the [facility] Progress Note Document represents a providers documented clinical note containing certain health and medical information. It may not contain the complete medical history for the patient and should be independently verified. The represented time in the document is Eastern Time PROVIDER ROUNDING NOTE PD Patient:?ALEX?FRANCISCO,?1945,?77y,?M Dialysis?Location:[facility] Attending?Hat Mender:?Mirna Service?Date:?06/17/2022 Service?Provider:?Lilliam?Jae,? I?saw?the?patient?remotely?today?for?a?telehealth?visit ?using?an?audiovisual?platform?during?the?COVID-19?PHE. 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 Medications?and?labs?reviewed. VITALS?ASSESSMENT Vitals?measured?in-clinic. BP?Sit ??06/13/2022:?172/78 ??2022:?170/90 ??05/22/2022:?156/83 Weight?(kg) ??06/13/2022:?124 ??05/22/2022:?57.9 Temp ??06/13/2022:?97.7 Respirations ??06/13/2022:?20 Pulse ??06/13/2022:?78 Height ??04/16/2022:?5'?10'' TREATMENT?ASSESSMENT Blood?pressure?controlled.?No?changes?indicated.? BP ??06/12/2022:?143/76 ??06/11/2022:?139/71 ??06/10/2022:?136/68 FLUID?ASSESSMENT Comments:?His?EDW?is?up;?he?appears?to?have?gained&#160 ;nutritional?weight.?He?has?no?leg?edema?or?SOB. Fluid?status?acceptable.?Weight?gain?acceptable.?No?changes?indicated.? EDW?(kg) ??06/12/2022:?52 ??06/11/2022:?52 ??06/10/2022:?52 Weight?(kg) ??06/12/2022:?53.65 ??06/11/2022:?53.51 ??06/10/2022:?54.37 EDW?Variance ??06/12/2022:?1.65 ??06/11/2022:?1.51 ??06/10/2022:?2.37 DIALYSIS?PRESCRIPTION ??CAPD?7x?Week?Start?date:?05/21/22 ??Day?Fill:?1999 ??Exchanges:?1 ??EDW:?52 ??Night?Fill:? ??Min?Dwell:?9:20 ??Rx?updated?on:?05/21/2022 Comments:?Stable. ADEQUACY?ASSESSMENT Adequacy?target?met.?Prescription?compliance?acceptable.?No?changes?indicated.? PD?Kt/V,?Total ??06/13/2022:?2.28 ??03/14/2022:?2.6 ??12/20/2021:?2.24 ACCESS?ASSESSMENT ??Access?Type:?PDCatheter ??Access?SubType:?Double?Cuff?Coiled ??Access?Status:?Active?(In?Use)?-?06/04/2021 ??Access?Location:?Right?Lower?Quadrant ??Placed:?04/24/2021 Access?perfect.?Exit?site?looks?clean.?Tunnel?tract?without& #160;sign?of?infection.?Effluent?clear. ANEMIA?ASSESSMENT CHEMA?adjusted?per?protocol.?Anemia?reviewed.?Anemia?targets?met.? HGB,?TSAT ??06/13/2022:?10.1,?41.0 ??05/22/2022:?10.1,?71.0 ??04/30/2022:?11.6,?- ?? Ferritin ??04/16/2022:?1046.0 Mircera,?Sub?Q?(mcg) ??06/05/2022:?75 ??05/22/2022:?30 BMM?ASSESSMENT PTH?within?target.?Bone?and?mineral?metabolism?parameters?re viewed.?Calcium?controlled.?Phosphorus?controlled.?Counseled?regarding ?dietary?compliance.? Phosphorus,?Calcium ??06/13/2022:?4.0,?8.4 ??05/22/2022:?5.0,?8.5 ??04/16/2022:?3.4,?8.5 ?? PTH,?Intact ??04/16/2022:?211.0 ??01/15/2022:?405.0 NUTRITION?ASSESSMENT Comments:?He?started?on?liquicil?last?week. Nutrition?reviewed.?Caloric?intake?addressed.?Referred?to?dietiti an?for?further?counseling.?Patient?taking?protein?supplements.&#1 60;Potassium?controlled.? Albumin,?Potassium ??06/13/2022:?3.4,?5.0 ??05/22/2022:?3.5,?5.7 ??04/16/2022:?3.1,?5.2 PHYSICAL?EXAM Exam?Not?Performed. DIAGNOSIS Chief?Complaint:?N18.6?End?stage?renal?disease Comments:?He?states?no?leg?edema,?no?abdominal?pain,?no?SOB. Patient?is?stable. Patient?data?updated?06/17/2022?at?2:46?PM Signed?By:?Jae,?Lilliam,???on?06/17/2022?2:48:58?PM END OF DOCUMENT
--- OUTSIDE RECORDS SUMMARY | 2022-10-08 13:35 | XMS_ITS ---
Author Name Ralph Maritza Address [address] [place] [address] Phone [phone] Organization [facility] e, NA DOCUMENT DISCLAIMER Multiple document versions may exist, please be sure you review the latest version. The information in the [facility] Progress Note Document represents a providers documented clinical note containing certain health and medical information. It may not contain the complete medical history for the patient and should be independently verified. The represented time in the document is Eastern Time PROVIDER ROUNDING NOTE PD Patient:?ALEX?FRANCISCO,?1945,?77y,?M Dialysis?Location:[facility] Attending?Cloth Dyer:?Lilliam?Jae Service?Date:?08/27/2022 Service?Provider:?Maritza?Ralph,? I?met?face?to?face?with?the?patient?today. 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 VITALS?ASSESSMENT Vitals?measured?in-clinic. BP?Sit ??08/12/2022:?171/96 ??07/30/2022:?135/72 ??06/17/2022:?127/70 BP?Stand ??08/12/2022:?168/94 Weight?(kg) ??08/12/2022:?56 ??07/30/2022:?56.6 ??06/17/2022:?55 Temp ??08/12/2022:?98 Respirations ??08/12/2022:?22 Pulse ??08/12/2022:?65 Height ??04/16/2022:?5'?10'' TREATMENT?ASSESSMENT Blood?pressure?controlled.?No?changes?indicated.? BP ??08/02/2022:?142/81 ??08/01/2022:?139/78 ??07/31/2022:?146/79 FLUID?ASSESSMENT Fluid?status?acceptable.?Weight?gain?acceptable.?Optimal?weight&# 160;discussed.?EDW?adjusted.? EDW?(kg) ??08/02/2022:?55 ??08/01/2022:?55 ??07/31/2022:?55 Weight?(kg) ??08/02/2022:?52.69 ??08/01/2022:?52.51 ??07/31/2022:?52.29 EDW?Variance ??08/02/2022:?-2.31 ??08/01/2022:?-2.49 ??07/31/2022:?-2.71 DIALYSIS?PRESCRIPTION ??CAPD?7x?Week?Start?date:?06/27/22 ??Day?Fill:?1999 ??Exchanges:?1 ??EDW:?55 ??Night?Fill:? ??Min?Dwell:?9:20 ??Rx?updated?on:?06/27/2022 ADEQUACY?ASSESSMENT Adequacy?target?met.?Prescription?compliance?acceptable.?No?changes?indicated.? PD?Kt/V,?Total ??06/13/2022:?2.28 ??03/14/2022:?2.6 ACCESS?ASSESSMENT ??Access?Type:?PDCatheter ??Access?SubType:?Double?Cuff?Coiled ??Access?Status:?Active?(In?Use)?-?06/04/2021 ??Access?Location:?Right?Lower?Quadrant ??Placed:?04/24/2021 Access?perfect.?Exit?site?looks?clean.?Tunnel?tract?without& #160;sign?of?infection.?Effluent?clear. ANEMIA?ASSESSMENT Comments:?He?has?seen?Bacilio?of?hematology?and?had&# 160;a?bone?marrow?in?the?past.? Anemia?reviewed.?Anemia?targets?met.? HGB,?TSAT ??08/12/2022:?10.6,?37.0 ??08/06/2022:?10.5,?- ??07/16/2022:?8.7,?39.0 ?? Ferritin ??07/16/2022:?1187.0 ??04/16/2022:?1046.0 Mircera,?Sub?Q?(mcg) ??08/12/2022:?150 ??07/29/2022:?150 ??07/16/2022:?100 Iron?Sucrose?(Venofer)?(mg) ??07/16/2022:?200 BMM?ASSESSMENT Comments:?never?on?binders,?we?discussed?diet?and?potential& #160;need?for?binder?if?remains?high.? PTH?within?target.?Bone?and?mineral?metabolism?parameters?re viewed.?Calcium?controlled.?Phosphorus?controlled.? Phosphorus,?Calcium ??08/12/2022:?5.7,?8.0 ??07/16/2022:?4.1,?7.8 ??06/13/2022:?4.0,?8.4 ?? PTH,?Intact ??07/16/2022:?267.0 ??04/16/2022:?211.0 NUTRITION?ASSESSMENT Nutrition?reviewed.?Caloric?intake?addressed.?Referred?to?dietiti an?for?further?counseling.?Patient?taking?protein?supplements.&#1 60;Potassium?controlled.? Albumin,?Potassium ??08/12/2022:?3.4,?5.1 ??08/06/2022:?-,?5.4 ??07/16/2022:?3.2,?5.5 PHYSICAL?EXAM Exam?Performed.?Vital?Signs?Reviewed.?Lungs?-?Clear.?CV&#160 ;-?Blood?pressure?noted.?CV?-?RRR.?EXT?-?No?edema. DIAGNOSIS Chief?Complaint:?N18.6?End?stage?renal?disease Patient?is?stable.?Patient?discussed?with?nursing. Patient?data?updated?08/27/2022?at?10:14?AM Signed?By:?Ralph,?Maritza,???on?08/27/2022?10:19:37?AM END OF DOCUMENT
--- OUTSIDE RECORDS SUMMARY | 2022-10-08 13:36 | XMS_ITS | Patient Health Record ---
Author Name Unknown Organization [facility] Address [address] [place] [address] Care Team Providers Care Application Spec Name Role Phone Migration, Provider Unavailable Unavailable Angel Glass Unavailable [phone] Slick Langford Unavailable [phone] ENCOUNTERS from 1945 to 2022-10-08 Encounter Location Date Provider Diagnosis [facility] [address] [place] [address] Apr, Provider Migration [address] [place] [address] Apr, Provider Migration [facility] [address] [place] [address] Mar, Provider Migration [facility] [address] [place] [address] Mar, Provider Migration [facility] [address] [place] [address] May, Ankush Hinkle UNKNOWN Feb, Provider Migration UNKNOWN Jan, Provider Migration [facility] [address] [place] [address], [place] [address] Apr, Angel Glass [facility] [address] [place] [address], [place] [address] May, Angel Glass UNKNOWN Dec, Provider Migration [facility] [address] [place] [address], [place] [address] Mar, Angel Glass [facility] [address] [place] [address], [place] [address] Feb, Slick Langford [facility] [address] [place] [address], [place] [address] Feb, Slick Langford [facility] [address] [place] [address], [place] [address] Jan, [facility] [address] [place] [address] August, [facility] [address] [place] [address] Jun, [facility] [address] [place] [address] Jan, Slick Primitivo IMMUNIZATIONS Vaccine Route Administration Date Status Influenza (whole), CPT 01008 Inactive Unknown Feb 12, 2017 Administered SOCIAL HISTORY Sex Assigned At : Social History Observation Description Sex Assigned At Unknown REASON FOR REFERRAL No Information VITAL SIGNS from 1945 to 2022-10-08 Height 71 in Dec, Weight 156 lbs Dec, BMI 21.75 kg/m2 Dec, Heart Rate 64 /min Dec, Blood pressure systolic 142 mm Hg Jan, Blood pressure diastolic 90 mm Hg Jan, MEDICATIONS Medication SIG (Take, Route, Frequency, Duration) Notes Start Date End Date Status Omeprazole 40 MG Enteric Coated Capsule Omeprazole 40 MG Enteric Coated Capsule Apr, Active Hydromorphone Hydrochloride 2 MG Oral Tablet Hydromorphone Hydrochloride 2 MG Oral Tablet Apr, Active 24 HR Metoprolol Tartrate 100 MG Extended Release Tablet [Toprol] 24 HR Metoprolol Tartrate 100 MG Extended Release Tablet [Toprol] Apr, Active Cyclobenzaprine hydrochloride 10 MG Oral Tablet Cyclobenzaprine hydrochloride 10 MG Oral Tablet Apr, Active Finasteride 5 MG Oral Tablet Finasteride 5 MG Oral Tablet Apr, Active apixaban 2.5 MG Oral Tablet apixaban 2.5 MG Oral Tablet Apr, Active Levothyroxine Sodium 0.125 MG Oral Capsule Levothyroxine Sodium 0.125 MG Oral Capsule Apr, Active Megestrol Acetate 40 MG/ML Oral Suspension Megestrol Acetate 40 MG/ML Oral Suspension Apr, Active Sodium Bicarbonate 650 MG Oral Tablet Sodium Bicarbonate 650 MG Oral Tablet Apr, Active Flonase Flonase Apr, Active predniSONE Prednisone Apr, Active Tamsulosin hydrochloride 0.4 MG Oral Capsule Tamsulosin hydrochloride 0.4 MG Oral Capsule Apr, Active Amlodipine 10 MG Oral Tablet Amlodipine 10 MG Oral Tablet Apr, Active sildenafil 20 MG Oral Tablet sildenafil 20 MG Oral Tablet Apr, Active Diclofenac Sodium 1 MG/ML Ophthalmic Solution [Voltaren] Diclofenac Sodium 1 MG/ML Ophthalmic Solution [Voltaren] Apr, Active Calcitriol 0.46829 MG Oral Capsule Calcitriol 0.53342 MG Oral Capsule Apr, Active Nitroglycerin 0.4 MG Sublingual Tablet [Nitrostat] Nitroglycerin 0.4 MG Sublingual Tablet [Nitrostat] Apr, Active Ibuprofen 600 MG Oral Tablet Ibuprofen 600 MG Oral Tablet Apr, Active gabapentin 400 MG Oral Capsule gabapentin 400 MG Oral Capsule Apr, Active Magnesium Oxide 400 MG Oral Tablet Magnesium Oxide 400 MG Oral Tablet Apr, Active REASON FOR VISIT No Information MEDICAL (GENERAL) HISTORY Type Description Date Medical History Problem:Anemia (disorder) , Stat us :: Active Medical History Problem:Anxiety (finding) , Stat us :: Active Medical History Problem:Bilateral cataracts (dis order) , Status :: Active Medical History Problem:Chronic obst ructive lung disease (disorder) , Status :: Active Medical History Problem:Depression - motion (qualifier value) , Status :: Active Medical History Problem:Fibromyalgia (disorder) , Status :: Active Medical History Problem:Gastric polyp (disorder) , Status :: Active Medical History Problem:Hypertensive disorder, systemic arterial (disorder) , Status :: Active Medical History Problem:Irritable colon (disorde r) , Status :: Active Medical History Problem:Myocardial infarction (d isorder) , Status :: Active Medical History Problem:Polyp (disorder) , Statu s :: Active Medical History Problem:Renal failure syndrome ( disorder) , Status :: Active MENTAL STATUS No Information PLAN OF TREATMENT No Information
== END 2022-10-11 23:59 | disposition home or self-care (01) ==
LOC: ONCMED 13:32
PROVIDERS: PCP Family Medicine; Visit Provider Internal Medicine Medical Oncology
DX: D64.9 Anemia, unspecified (principal)
CPT/HCPCS: 99214

== ENCOUNTER → 2022-11-11 16:33 | Outpatient (BNVA) | payer MEDICARE, SELFPAY | PROVIDERS: PCP Family Medicine; Visit Provider Family Medicine | DX: E03.9 Hypothyroidism, unspecified (principal); E78.5 Hyperlipidemia, unspecified; I10 Essential (primary) hypertension; R79.89 Other specified abnormal findings of blood chemistry; R19.5 Other fecal abnormalities | CPT/HCPCS: 80053; 80061; 84403; 84443; 85025 ==

== ENCOUNTER 2022-12-03 15:01 | Oncology outpatient (recurring) (ONCR) | payer MEDICARE, SELFPAY | END 2022-12-12 23:59 | disposition home or self-care (01) | PROVIDERS: PCP Family Medicine; Visit Provider Internal Medicine Medical Oncology | DX: I12.0 Hypertensive chronic kidney disease with stage 5 chronic kidney disease or end stage renal disease (principal); N18.6 End stage renal disease; Z99.2 Dependence on renal dialysis; D63.1 Anemia in chronic kidney disease; F17.210 Nicotine dependence, cigarettes, uncomplicated | CPT/HCPCS: 99213 ==

== ENCOUNTER 2023-01-06 11:50 | Outpatient (CLI) | payer MEDICARE, SELFPAY ==
--- NOTE | 2023-01-06 12:00 | CT_ITS ---
WS: [id number] CT ANGIOGRAPHY ABDOMEN AORTA HISTORY: AAA TECHNIQUE: CT angiogram is performed during IV injection. Reformation images reviewed. All CT scans a t [employer] use at least one of these dose optimization techniques: automated exposure contro l; mA and/or kV adjustment per patient size (includes targeted exams where dose is matched to clinica l indication); or iterative reconstruction. CONTRAST: Omnipaque 350; 100 mL IV. DLP: 134.08 mGy.cm COMPARISON: 07/30/2022 Marked chronic emphysema at the lung bases. Small hiatal hernia. Abdominal aorta: Markedly ectatic atherosclerotic changes throughout the abdominal aorta. Abdominal a ivan is tortuous and curves to the LEFT of midline. Known infrarenal aneurysm extends over a length o f approximately 7.7 cm. Maximum transverse diameter 4.8 cm x 4.7 cm anterior posterior. Curvilinear t hrombus along the LEFT posterior aneurysm sac. No significant progression of the thrombus. Aneurysm t erminates just above the bifurcation. Focal plaque ulceration in the LEFT lateral aorta just proximal to the bifurcation. Ulceration measures 7.6 mm. Heavy calcification continues into the iliac arterie s. Tortuous celiac axis and SMA. Mild narrowing of the SMA is similar to the prior studies. Mildly atrophic but enhancing kidneys. There are bilateral renal masses. Some of these are cysts and some are complex and possibly solid in nature. No increase in size. Renal arteries are small caliber bilaterally. Bilateral accessory renal arteries contributing to vascularity of the kidneys. There is marked fluid distention of the stomach. Normal size liver and spleen. There are several scat tered cysts throughout the pancreas. Pancreatic duct is very mildly prominent. No adrenal mass. Advanced degenerative disc disease at L4-5. Disc space is narrowed with sclerotic margins. IMPRESSION: 1. Stable infrarenal abdominal aortic aneurysm measuring 4.8 x 4.7 cm extending over a length of 7.7 cm. Aorta is ectatic with asymmetric plaque. There is an additional plaque ulceration just proximal t o the bifurcation that is stable. 2. Ectatic iliac arteries with no aneurysm. 3. Small caliber atrophic kidneys but there is still enhancement to the cortex. Bilateral renal annetta s. Some of these are cysts others cannot be characterized but there has been no increase in size.
[2023-01-06] MEDS: iohexol 350 mg/mL 500 mL Btl (per mL) IV (12:11)
== END 2023-01-06 11:51 | disposition home or self-care (01) ==
PROVIDERS: PCP Family Medicine; Visit Provider Internal Medicine
DX: I71.40 Abdominal aortic aneurysm, without rupture, unspecified (principal)
CPT/HCPCS: 74175; Q9967

== ENCOUNTER → 2023-03-26 11:15 | Outpatient (BNVA) | payer MEDICARE, SELFPAY | PROVIDERS: PCP Family Medicine; Visit Provider Family Medicine | DX: E03.8 Other specified hypothyroidism (principal); I10 Essential (primary) hypertension; E78.5 Hyperlipidemia, unspecified; K21.9 Gastro-esophageal reflux disease without esophagitis; E03.9 Hypothyroidism, unspecified; E78.2 Mixed hyperlipidemia | CPT/HCPCS: 80053; 80061; 84403; 84443; 85025 ==

== ENCOUNTER 2023-03-31 12:24 | Oncology outpatient (recurring) (ONCR) | payer MEDICARE, SELFPAY ==
[2023-03-31 12:39] VITALS: BP 92/61; PULSE 62; RESP 16; TEMP 36.5; O2SAT 97
[2023-03-31 13:27] LABS: Basophils % 0.6 %; Eosinophils # 0.2 10^3/uL (0.0-0.8); Eosinophils % 4.1 %; Hematocrit 32.1 % (37-53); Lymphocytes # 1.1 10^3/uL (0.8-4.8); Lymphocytes % 23.1 %; Mean Corpuscular HGB Conc 33.6 g/dL (30-55); Mean Corpuscular Hemoglobin 31.9 pg (27-33); Mean Corpuscular Volume 94.7 fl (82-101); Mean Platelet Volume 10.3 fL (7.4-10.4); Monocytes # 0.4 10^3/uL (0.2-0.9); Neutrophils # 2.93 10^3/uL (1.8-7.7); Neutrophils % 62.8 %; Nucleated Red Blood Cells % 0 %; Platelet Count 150 10^3/cmm (157-399); Red Blood Count 3.39 10^6/uL (3.85-5.65); Red Cell Distribution Width 14.4 % (12.1-15.1); White Blood Count 4.67 10^3/uL (3.29-11.43)
[2023-03-31 13:45] LABS: Alanine Aminotransferase 30 U/L (0-41); Albumin Level 3.7 g/dL (3.5-5.2); Alkaline Phosphatase 72 U/L (40-130); Anion Gap 15.3 (5-19); Aspartate Amino Transferase 22 U/L (0-40); Blood Urea Nitrogen 52 mg/dL (8-23); Calcium 8.6 mg/dL (8.5-10.5); Carbon Dioxide 24 mmol/L (22-29); Chloride 101 mmol/L (98-107); Globulin 2.3 g/dL (1.3-4.6); Glucose 120 mg/dL (65-115); Osmolality Calculated 297 mOsm/kg (285-295); Potassium 4.3 mmol/L (3.5-5.1); Sodium 136 mmol/L (136-145); Total Bilirubin 0.2 mg/dL (0.15-1.2)
== END 2023-04-13 23:59 | disposition home or self-care (01) ==
LOC: ONCMED 12:26
PROVIDERS: Internal Medicine Medical Oncology; PCP Family Medicine; Visit Provider Internal Medicine Medical Oncology
DX: D64.9 Anemia, unspecified (principal)
CPT/HCPCS: 36415; 80053; 85025; 99214

== ENCOUNTER → 2023-04-10 13:10 | Outpatient (BNVA) | payer MEDICARE, SELFPAY | PROVIDERS: PCP Family Medicine; Visit Provider Nurse Practitioner Family | DX: I48.21 Permanent atrial fibrillation (principal); I12.0 Hypertensive chronic kidney disease with stage 5 chronic kidney disease or end stage renal disease; N18.6 End stage renal disease; F17.210 Nicotine dependence, cigarettes, uncomplicated; Z99.2 Dependence on renal dialysis | CPT/HCPCS: 99214 ==

== ENCOUNTER → 2023-04-18 15:03 | Outpatient (BNVA) | payer MEDICARE, SELFPAY | PROVIDERS: PCP Family Medicine; Visit Provider Nurse Practitioner Family | DX: R04.2 Hemoptysis (principal); J98.4 Other disorders of lung | CPT/HCPCS: 71046 ==

== ENCOUNTER 2023-07-14 12:00 | Outpatient (CLI) | payer MEDICARE, SELFPAY ==
--- NOTE | 2023-07-14 12:00 | CT_ITS ---
WS: [id number] CTA ABDOMEN AND PELVIS TECHNIQUE: Noncontrast plus contrast enhanced CTA of the abdominal aorta with coronal and sagittal re formatted images and additional MIP Images. CLINICAL INFORMATION: aaa COMPARISON: Pelvis DLP: 181.[address] scans at [facility] use at least one of these dose optimization techniques: automated e xposure control; mA and/or kV adjustment per patient size (includes targeted exams where dose is matc hed to clinical indication); or iterative reconstruction. FINDINGS: Lobulated infrarenal abdominal aortic aneurysm measuring approximately 4.7 x 4.8 cm AP by transverse stable compared to previous. Eccentric mural thrombus similar to the prior examination. Aneurysm exte nds over approximately 7.4 cm. Celiac and SMA remain patent. Densely calcified iliac arteries. Ectati c RIGHT iliac artery measuring 1.4 cm. Densely calcified external and internal iliac arteries. Lung bases are well aerated. Splenic granulomas. Small hepatic cyst. Adrenal glands are normal. Atrop hic kidneys bilaterally. Bilateral renal cysts. Enhancing upper pole RIGHT renal lesion increased in size compared to previous today measuring 2.1 x 2.1 cm. Recommend further evaluation with ultrasound. Additional indeterminate lesions LEFT kidney with increase in size in the lower pole lesion today me asuring 2.3 cm Pancreatic calcifications. Low-attenuation lesion in the dorsal pancreas appears stable compared to p revious measuring 12 mm. This may present IPMN but indeterminate. Additional similar-appearing low-a ttenuation lesion pancreatic tail measuring 18 mm. Dialysis catheter with tip in the pelvis. Advanced to space narrowing L4-5 with endplate sclerosis. S light retrolisthesis. IMPRESSION: 1. Stable lobulated infrarenal abdominal aortic aneurysm described above measuring 4.6 x 4.8 cm AP b y transverse. 2. Ectatic RIGHT common iliac artery unchanged. 3. Stable bilateral renal lesions some of which are indeterminant. Enhancing RIGHT renal lesion incr eased in size and increase in size of the indeterminate LEFT lower pole renal lesion. Recommend furth er evaluation with ultrasound. 4. Stable low-attenuation pancreatic lesions. Recommend continued surveillance.
[2023-07-14] MEDS: iohexol 350 mg/mL 500 mL Btl (per mL) IV (12:22)
== END 2023-07-14 12:01 | disposition home or self-care (01) ==
LOC: RAD 12:01
PROVIDERS: PCP Family Medicine; Visit Provider Internal Medicine
DX: I71.40 Abdominal aortic aneurysm, without rupture, unspecified (principal); N28.9 Disorder of kidney and ureter, unspecified; K86.9 Disease of pancreas, unspecified
CPT/HCPCS: 74174; Q9967

== ENCOUNTER 2023-08-13 13:52 | Outpatient (CLI) | payer MEDICARE, SELFPAY ==
--- NOTE | 2023-08-13 14:04 | XR_ITS ---
WS: [id number] XR KUB [id number] REASON FOR EXAM: Constipation, PD catheter tip placement FINDINGS: Nonspecific bowel gas pattern with segments of mildly dilated colon and small bowel. There appears to be edema in the small bowel wall, thickened fold pattern. Gas is noted in the rectum. No free air or retroperitoneal air. Abdominal aortic aneurysm as defined on the CT scan of 07/14/2023. Right-sided PD catheter with the tip located in the mid right pelvis. No definite kinking of the cath eter. XR/XR KUB [id number] IMPRESSION: Nonspecific bowel gas pattern with apparent small bowel mural edema. Small jaqui l mural changes are of uncertain etiology, possibly related to the patient's re nal condition.
== END 2023-08-13 13:53 | disposition home or self-care (01) ==
LOC: RAD 13:56
PROVIDERS: PCP Family Medicine; Visit Provider Internal Medicine Nephrology
DX: N18.6 End stage renal disease (principal); Z99.2 Dependence on renal dialysis; I71.40 Abdominal aortic aneurysm, without rupture, unspecified; K59.00 Constipation, unspecified
CPT/HCPCS: 74018

== ENCOUNTER → 2023-08-21 10:58 | Outpatient (BNVA) | payer MEDICARE, SELFPAY | PROVIDERS: PCP Family Medicine; Visit Provider Surgery | DX: L05.91 Pilonidal cyst without abscess | CPT/HCPCS: 99204; 99214 ==

== ENCOUNTER 2023-08-28 10:16 | Day surgery (SDC) | payer MEDICARE, SELFPAY ==
[2023-08-28] VITALS (9 sets, daily range): BP systolic 106–145; BP diastolic 54–79; PULSE 59–79; RESP 12–17; TEMP 36.1–37.2; O2SAT 95–100; BMI 16.9
[2023-08-28] MEDS: sodium chloride 0.9% 1,000 ML 30 ML IV (10:52)
--- NOTE | 2023-08-28 11:10 | W.PM.OPSUD ---
Surgery/Procedure H&P Update DATE OF PROCEDURE: August 28, 2023 DATE H&P PERFORMED: 08/21/23 H&P UPDATE INFORMATION: I have reviewed H&P completed within last 30 days, I have examined patient prior to procedure and No changes to prior documentation PLANNED PROCEDURE: Operation Date: 08/28/23 12:00 Proposed Procedures p Excision Subcutaneous Buttox Mass, left 31260, L05.01(Left) - Bassem Pinon DO
--- NOTE | 2023-08-28 11:23 | P.ANESASSM_ITS ---
Pre-Anesthetic Assessment Height/Weight: Height 1.83 m Weight 56.699 kg O2 Del Method Room Air 08/28/23 10:37 Operation Date: 08/28/23 12:00 Proposed Procedures p Excision Subcutaneous Buttox Mass, left 97284, L05.01(Left) - Bassem Pinon DO Familial anesthetic complications: none Was Beta Shawn taken within 24 hours: Yes Was Clonidine taken within 24 hours: N/A Last intake: Intake Last Liquid Date 08/28/23 Last Liquid Time 06:00 Last Solid Date 08/27/23 Last Solid Time 19:00 Social Tobacco and No alcohol Exam alert, oriented x 3 and regular rate & rhythm rhonchi Airway Submandibular: within normal limits Mallampati: Class II Dentition: false (upper) Pulmonary Chronic Obstructive Pulmonary Disease CV/HEM Atrial Fibrillation, Anemia (chronic dz), Arrythmia, Hypertension and Peripheral Vascular Disease Chronic Renal Failure (PD) GI Gastroesophageal Reflux Disease Metabolic Thyroid Disease Anesthetic Plan ASA status: 3 Anesthesia: Choice Medications/Allergies Home Medications Medication Instructions Recorded Confirmed Last Taken Type albuterol sulfate 90 mcg/actuation 2 puff inhalation Q6H PRN 02/03/20 08/27/23 08/27/23 Rx aerosol inhaler (ProAir HFA) Shortness Of Breath #8.5 grams sodium bicarbonate 650 mg tablet 1,300 mg PO TID 06/13/20 08/27/23 08/27/23 History omeprazole 40 mg capsule,delayed 40 mg PO DAILY #90 caps 12/26/20 08/27/23 08/27/23 Rx release aspirin 81 mg tablet,delayed 81 mg PO DAILY 01/30/21 08/27/23 08/27/23 History release nitroglycerin 0.4 mg sublingual 0.4 mg sublingual DIRECTED PRN 06/29/21 08/27/23 08/27/23 Rx tablet (Nitrostat) Chest Pain #25 tabs doxazosin 2 mg tablet 2 mg PO DAILY 09/18/21 08/27/23 08/27/23 History naloxone 4 mg/actuation nasal 1 spray intranasal Q2M PRN opioid 12/14/21 08/27/23 Unknown Rx spray (Narcan) overdose #2 ea finasteride 5 mg tablet See Rx Instructions .Route 08/29/22 08/27/23 08/27/23 Rx .COMPLEX #90 tabs atorvastatin 40 mg tablet 40 mg PO DAILY #90 tabs 08/30/22 08/27/23 08/27/23 Rx atenolol 25 mg tablet 12.5 mg (1/2 x 25 mg) PO DAILY #45 11/11/22 08/27/23 08/27/23 Rx tabs meclizine 25 mg tablet 25 mg PO TID PRN dizziness #30 tabs 11/21/22 08/27/23 Unknown Rx linaclotide 72 mcg capsule 72 mcg PO QAM #30 caps 12/23/22 08/27/23 Unknown Rx (Linzess) losartan 25 mg tablet 25 mg PO DAILY PRN bp 04/10/23 08/27/23 Unknown History sevelamer carbonate 800 mg tablet 800 mg PO DAILY 04/10/23 08/27/23 Unknown History ondansetron HCl 4 mg tablet 4 mg PO QID PRN nausea and 04/18/23 08/27/23 Unknown Rx vomiting #30 tabs tamsulosin 0.4 mg capsule See Rx Instructions .Route 05/01/23 08/27/23 08/27/23 Rx .COMPLEX #60 caps diphenoxylate-atropine 2.5 1 tab PO TID PRN diarrhea #30 tabs 05/08/23 08/27/23 Unknown Rx mg-0.025 mg tablet (Lomotil) fluoxetine 10 mg capsule 10 mg PO DAILY #30 caps 06/10/23 08/27/23 08/27/23 Rx gabapentin 300 mg capsule See Rx Instructions .Route 06/10/23 08/27/23 08/27/23 Rx .COMPLEX #30 caps testosterone cypionate 200 mg/mL 200 mg IM .Every other week #1 ea 06/10/23 08/27/23 08/13/23 Rx intramuscular kit trazodone 50 mg tablet See Rx Instructions .Route 06/10/23 08/27/23 08/27/23 Rx .COMPLEX #90 tabs memantine 10 mg tablet 10 mg PO QAM 30 days #30 tabs 06/19/23 08/27/23 08/27/23 Rx calcitriol 0.25 mcg capsule 0.25 mcg PO DAILY #30 caps 07/15/23 08/27/23 08/27/23 Rx loperamide 2 mg tablet (Imodium 2 mg PO Q6H PRN loose stool #30 07/17/23 08/27/23 Unknown Rx A-D) tabs levothyroxine 175 mcg tablet See Rx Instructions .Route 07/29/23 08/27/23 08/27/23 Rx .COMPLEX #30 tabs doxycycline hyclate 100 mg tablet 100 mg PO BID 10 days #20 tabs 08/15/23 08/27/23 08/27/23 Rx amlodipine 5 mg tablet 5 mg PO BID 08/27/23 08/27/23 08/28/23 History buspirone 15 mg tablet 15 mg PO DAILY 08/27/23 08/27/23 08/27/23 History Allergies Allergy/AdvReac Type Severity Reaction Status Date / Time No Known Allergies Allergy Verified 08/27/23 12:07 Current Medications Generic Name Dose Route Start Last Admin Trade Name Freq PRN Reason Stop Dose Admin Sodium Chloride 1,000 mls @ 30 mls/hr 08/28/23 10:30 08/28/23 10:52 Sodium Chloride 0.9% IV 08/29/23 10:29 30 mls/hr .Q24H AZRA Administration PFSH Anesthesia Medical History Enrolled in chronic care management End stage renal disease on dialysis Renal cyst Colon polyp Anemia BPH NOS w ur obs/LUTS Hypogonadism Erectile dysfunction Chronic migraine Hypothyroidism HTN (hypertension) AAA (abdominal aortic aneurysm) Atrial fibrillation Depression Surgical History Previous back surgery History of pancreatic surgery Biopsy S/P cholecystectomy History of loop recorder Family History Father , 67 y/o Heart disease Myocardial infarction Mother Arthritis Depression Anxiety Hypertension Hearing loss Social History Smoking and tobacco/nicotine status: current every day tobacco/nicotine user cigarettes Packs smoked per day: 1 Years cigarettes smoked: 50 Second hand smoke exposure: Yes Alcohol intake: former Substance/Drug Use: unknown Adopted: No Caregiver/support person: No Lives independently: Yes Marital status: Current occupational status: retired Data Anesthesia 08/28/23 10:35 Cardiac Studies: 2 No Data to Display
[2023-08-28 11:30] LABS: Alanine Aminotransferase 19 U/L (0-41); Albumin Level 3.6 g/dL (3.5-5.2); Alkaline Phosphatase 78 U/L (40-130); Anion Gap 16.7 (5-19); Aspartate Amino Transferase 26 U/L (0-40); Blood Urea Nitrogen 55 mg/dL (8-23); Calcium 8.1 mg/dL (8.5-10.5); Carbon Dioxide 22 mmol/L (22-29); Chloride 107 mmol/L (98-107); Creatinine Clr Calc Pharmacy 6.6882; Globulin 2.8 g/dL (1.3-4.6); Glucose 90 mg/dL (65-115); Osmolality Calculated 305 mOsm/kg (285-295); Potassium 5.7 mmol/L (3.5-5.1); Sodium 140 mmol/L (136-145); Total Bilirubin 0.3 mg/dL (0.15-1.2); Total Protein 6.4 g/dL (6.6-8.7)
--- NOTE | 2023-08-28 11:41 | PC.NURSE ---
lab called with critical lab of nicole 7.3. dr. Euceda informed of values. no new orders noted.
--- NOTE | 2023-08-28 11:57 | ECG_ITS ---
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 Measurements Intervals [place] Rate: 61 P: 63 MT: 144 QRS: 60 QRSD: 89 T: 67 QT: 413 QTc: 416 Interpretive Statements SINUS RHYTHM POSSIBLE LEFT ATRIAL ENLARGEMENT [-0.1mV P-WAVE IN V1/V2] POSSIBLE LEFT VENTRICULAR HYPERTROPHY [VOLTAGE CRITERIA PLUS LAE OR QRS WIDENING] TALL T-WAVES, SUGGESTS HYPERKALEMIA Compared to ECG 04/24/2021 06:50:00 Sinus bradycardia no longer present Electronically Signed On 08-28-2023 23:55:16 CDT by Clinton Clark M.D. [id number]
[2023-08-28] MEDS: piperacillin-tazobactam 3.375 GM in sodium chloride 0.9% (plus) 50 ML IV (12:04)
--- NOTE | 2023-08-28 13:18 | P.OP_ITS ---
Operative Report Date of procedure: August 28, 2023 Surgeon: Bassem Pinon DO Brief History: She is a very pleasant 78-year-old gentleman who presented to my office with a pilonidal cyst. We discussed simple excision versus cleft lift procedure with pilonidal cyst excision. The latter was indicated. The risk and benefits were explained and documented. Procedure: Pre-op diagnosis: Pilonidal cyst Post-op diagnosis: same Procedure done: Cleft lift procedure (88035) with excision of pilonidal cyst (78903) Implants: 15 Marshallese Mark drain Specimens removed/disposition: Elliptical skin and subcutaneous excision with pilonidal cyst Surgeon: Bassem Pinon DO Anesthesia: General and Local Estimated blood loss (mL): 5 Complications: None apparent Brief History: This is a very pleasant 19-year-old gentleman who presented to my office with a pilonidal cyst and history of pilonidal abscess. He completed a course of antibiotics. He desired excision. Cleft lift procedure with excision of pilonidal cyst is indicated. The risks and benefits were explained and documented. Procedure: Patient was wheeled operative room and general endotracheal intubation was achieved on the [facility] by the department of anesthesia. The patient was then placed prone on the OR table. Preoperatively the bilateral buttocks were pressed together to identify the area where the skin touches. This area was marked. The buttocks were then taped spread apart. The inner jerrica cleft was inspected prepped and draped in usual sterile fashion. A timeout was performed. All present were in agreement. Pilonidal sinus was located more to the right of the jerrica cleft. An elliptical excision measuring 4 cm in width was performed over the pilonidal sinus from just left midline and into the right buttock. Electrocautery was then used to cut the fascia and dissect down through the subcutaneous tissue and around the pilonidal sinus, removing the sinus en bloc. A fasciocutaneous flap was then created on the left side with Bovie cautery in cautery mode, going back 4 cm. The thickness of the flap was just over 1 cm. Hemostasis was achieved electrocautery. Nolvia was then placed down into the midline of the excision. The subcutaneous tissue was then approximated using 2-0 Vicryl in a simple interrupted fashion. A 15 Marshallese Mark drain was then placed into the wound coming out of the left buttock. This was sutured in place with 3-0 silk. The dermis was then approximated with interrupted 3-0 Vicryl. Skin was closed with running 3 oh STRATAFIX. Dermabond was applied. A drain sponge was applied around the drain. Tissue came together off midline and without tension. Patient tolerated procedure well.
[2023-08-28] MEDS: lidocaine-epi 2% PF 1:200,000 20 mL SDV XX (13:26)
--- NOTE | 2023-08-28 13:51 | ANE.PACU2 ---
Inpatient post-anesthesia follow up: Airway intact: Yes Vital signs: Temperature Pulse Rate Respiratory Rate Blood Pressure Pulse Oximetry Oxygen Delivery Me thod Room Air Oxygen Flow Rate Fraction of Inspir ed Oxygen Hydration adequate: Yes Nausea and vomiting: No Pain level: 2 Mental status: Baseline
[2023-08-28] MEDS: HYDROcodone-acetaminophen 7.5-325 mg Tablet 1 TAB PO (14:55)
--- NOTE | 2023-08-28 15:35 | SUR.PHASEII ---
During teaching for WALLY drain, 5ml was emptied. Teaching given to Patient's . Patient stood up for patient's to see surgical area. After standing, patient had more drainage in drain. When emptying new drainage, there was a large clot in bulb of WALLY drain and it would not squeeze out of opening to empty. Dr. Pinon contacted about clot. He said it was ok and to put a new bulb on drain. Old bulb with clot was removed, and new bulb placed on drain. Patient tolerated well.
== END 2023-08-28 15:43 | disposition home or self-care (01) ==
PROVIDERS: Anesthesiology; PCP Family Medicine; Visit Provider Surgery
PROC: (CPT 11772; principal; 2023-08-28 12:00)
DX: L05.91 Pilonidal cyst without abscess (principal)
CPT/HCPCS: 11772; 80053; 88304; 93005; J2543; J2704; J2710; J3010; J3490; J7030

== ENCOUNTER → 2023-10-28 15:40 | Outpatient (BNVA) | payer MEDICARE, SELFPAY | PROVIDERS: PCP Family Medicine; Visit Provider Nurse Practitioner Family | DX: R19.7 Diarrhea, unspecified (principal) | CPT/HCPCS: 87045; 87177; 87209; 87427; 87449; 87493 ==

== ENCOUNTER → 2023-11-25 16:30 | Outpatient (BNVA) | payer MEDICARE, SELFPAY | PROVIDERS: PCP Family Medicine; Visit Provider Family Medicine | DX: E03.8 Other specified hypothyroidism (principal); E78.2 Mixed hyperlipidemia | CPT/HCPCS: 80053; 80061; 84439; 84443; 84481; 85025 ==

== ENCOUNTER → 2024-01-08 13:30 | Outpatient (BNVA) | payer MEDICARE, SELFPAY | PROVIDERS: PCP Family Medicine; Visit Provider Internal Medicine | DX: I48.21 Permanent atrial fibrillation (principal); D64.9 Anemia, unspecified; I10 Essential (primary) hypertension; I71.40 Abdominal aortic aneurysm, without rupture, unspecified | CPT/HCPCS: 99214 ==

== ENCOUNTER 2024-01-16 12:02 | Outpatient (CLI) | payer MEDICARE, SELFPAY ==
--- NOTE | 2024-01-16 12:00 | CTR_ITS ---
PROCEDURE INFORMATION: Exam: CTA Abdomen and Pelvis With Contrast Exam date and time: 01/16/2024 12:15 PM Age: 78 years old Clinical indication: Condition or disease; Prior surgery; Surgery date: 6+ months; Surgery type: Dialysis catheter, gb; Patient HX: Aaa without rupture; Additional info: Z13.6, to be done in 6 months (january 2024) TECHNIQUE: Imaging protocol: Computed tomographic angiography of the abdomen and pelvis with contrast. Exam focused on the arteries. 3D rendering (Not supervised by radiologist): MIP and/or 3D reconstructed images were created by the technologist. Radiation optimization: All CT scans at this facility use at least one of these dose optimization techniques: automated exposure control; mA and/or kV adjustment per patient size (includes targeted exams where dose is matched to clinical indication); or iterative reconstruction. Contrast material: OMNI 350; Contrast volume: 95 ml; Contrast route: INTRAVENOUS (IV); COMPARISON: 1. CT angio abdomen [id number] 01/06/2023 12:[address] angio abdomen pelvis [id number] 07/14/2023 12:14 PM RADIATION DOSE METRICS: Total DLP (mGy-cm): 186.45 FINDINGS: Tubes, catheters and devices: A dialysis catheter is noted with its tip in the right upper quadrant. Aorta: There is an infrarenal abdominal aortic aneurysm which measures 4.9 x 4.8 cm compared with 4.8 x 4.8 cm using a similar technique of measurement on the previous examination. Since the prior study there has been interval progression in eccentric mural thrombus along the left posterolateral aspect of the aneurysm with increasing areas of calcification within the thrombus. The thrombus occupies approximately 30-40% of the aneurysm. Moderate diffuse peripheral calcified plaque is noted. Celiac trunk and mesenteric arteries: There is mild plaque involving the origin of the celiac artery producing less than 50% stenosis. Kauvmjaq-sw-qgwycu calcified plaque is noted at the origin of the superior mesenteric artery producing approximately 50-75% stenosis. The inferior mesenteric artery is patent. Renal arteries: There are dual bilateral renal arteries with mild calcified plaque of the origins without significant stenosis. Right iliac arteries: No occlusion or significant stenosis. Moderate calcified plaque is noted. There is stable ectasia of the right common iliac artery Left iliac arteries: No occlusion or significant stenosis. Moderate calcified plaque is noted Liver: No mass. Gallbladder and biliary ducts: The gallbladder is surgically absent. No significant biliary ductal dilatation. Pancreas: There is a stable 1.3 cm cystic lesion within the proximal body of the pancreas and stable 1.8 cm low-density lesion within the tail of the pancreas. Spleen: There are multiple calcified splenic granulomas. Adrenal glands: Unremarkable. No mass. Kidneys and ureters: There is an exophytic lesion arising from the upper pole of the right kidney with suspected mild enhancement. This measures 2.7 x 1.7 x 2.7 cm and is unchanged using a similar technique and measurement on the previous examination of 07/14/2023 however has shown mild interval enlargement since 01/06/2023. No hydronephrosis. There are multiple unchanged bilateral renal cysts also noted Stomach and bowel: There is colonic diverticulosis without evidence of acute diverticulitis. Appendix: No evidence of appendicitis. Intraperitoneal space: There is mild abdominal and pelvic free fluid. Lymph nodes: Unremarkable. No enlarged lymph nodes. Urinary bladder: Unremarkable. No mass. Reproductive: Unremarkable as visualized. Bones/joints: No acute fracture. There are hikarbjh-bx-hmorgm degenerative changes at L4-L5 and mkdw-py-brwhaere degenerative changes at L3-L4 and L5-S1 with unchanged grade 1 retrolisthesis of L4 on L5. Soft tissues: Unremarkable. CT/CT angio abdomen pelvis [id number] IMPRESSION: 1. Slight interval enlargement in an infrarenal abdominal aortic aneurysm with interval progression in eccentric mural thrombus 2. Moderate marked diffuse atherosclerotic disease as described above 3. Exophytic right upper pole renal lesion with suspected mild enhancement is stable since 07/14/2023 however has shown interval enlargement since 01/06/2023. Further evaluation with ultrasound or MRI of the kidneys is suggested. 4. Dialysis catheter in place with mild free fluid likely reflecting dialysate 5. Stable low-density pancreatic lesions. Continued follow-up is suggested
[2024-01-16] MEDS: iohexol 350 mg/mL 500 mL Btl (per mL) IV (12:34)
== END 2024-01-16 12:03 | disposition home or self-care (01) ==
LOC: RAD 12:02
PROVIDERS: PCP Family Medicine; Visit Provider Internal Medicine
DX: Z13.6 Encounter for screening for cardiovascular disorders (principal); I71.43 Infrarenal abdominal aortic aneurysm, without rupture; I70.8 Atherosclerosis of other arteries; Z90.49 Acquired absence of other specified parts of digestive tract; K86.2 Cyst of pancreas; D73.89 Other diseases of spleen; Q61.02 Congenital multiple renal cysts; M51.369 Other intervertebral disc degeneration, lumbar region without mention of lumbar back pain or lower extremity pain
CPT/HCPCS: 74174

== ENCOUNTER → 2024-02-23 15:16 | Outpatient (BNVA) | payer MEDICARE, SELFPAY | PROVIDERS: PCP Family Medicine; Visit Provider Nurse Practitioner Family | DX: Z12.5 Encounter for screening for malignant neoplasm of prostate (principal); E78.2 Mixed hyperlipidemia; E03.8 Other specified hypothyroidism; R79.89 Other specified abnormal findings of blood chemistry | CPT/HCPCS: 80053; 80061; 84403; 84439; 84443; 85025; G0103 ==

== ENCOUNTER 2024-09-14 10:13 | Emergency (ER) | payer MEDICARE, SELFPAY ==
--- NOTE | 2024-09-14 10:16 | ECG_ITS ---
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 Measurements Intervals [place] Rate: 66 P: 61 NV: 165 QRS: 81 QRSD: 94 T: 75 QT: 391 QTc: 411 Interpretive Statements SINUS RHYTHM Compared to ECG 08/28/2023 11:57:56 No significant changes Electronically Signed On 09-14-2024 11:28:25 CDT by Pablo Abrams M.D. [email or web address]
--- NOTE | 2024-09-14 10:16 | XR_ITS ---
WS: [id number] XR chest 1V portable [id number] REASON FOR EXAM: dyspnea/cough FINDINGS: The chest is unchanged compared to the examination of 04/18/2023. There is calcification of the aortic arch with significant tortuosity and ectasia of the descending thoracic aorta. Widening of the upper mediastinum due to tortuosity of the the origin of great vessels. The heart size is within normal limits. Calcified granulomatous disease bilaterally. No acute pulmonary parenchymal or pleural abnormality. Mild degenerative spondylosis of the thoracic spine. XR/XR chest 1V portable [id number] IMPRESSION: Stable chest without acute abnormality.
[2024-09-14 10:17] VITALS: BP 153/78; PULSE 70; RESP 16; TEMP 36.7; O2SAT 94; BMI 16.2
--- NOTE | 2024-09-14 10:20 | ED_ITS ---
HPI - General Adult General: Chief complaint: Altered Mental Status Stated complaint: weakness Time Seen by Provider: 09/14/24 10:16 History of Present Illness: 79-year-old male presents emergency room complaining of weakness altered mental status not eating or drinking well. Patient has been placed on hospice he has peritoneal dialysis which was stopped several weeks ago. When EMS arrived he had a blood sugar of 57. Patient will answer a few simple questions but nothing in-depth is at the bedside. They have hospice [facility] stated called hospice and been advised to go to the emergency room evidently they did not see the hospice nurse today. Her biggest complaint is she is concerned he is dehydrated and has not been eating or drinking. Related Data Previous Rx's ?Medication ?Instructions ?Recorded nitroglycerin 0.4 mg sublingual 0.4 mg sublingual D IRECTED PRN 06/29/21 tablet (Nitrostat) Chest Pain #25 tabs loperamide 2 mg tablet (Imodium 2 mg PO Q6H PRN loose stool #30 07/17/23 A-D) tabs docusate sodium 100 mg capsule 100 mg PO BID #14 caps 08/28/23 (Colace) diphenoxylate-atropine 2.5 1 tab PO BID PRN diarrhea # 30 tabs 09/22/23 mg-0.025 mg tablet (Lomotil) gabapentin 300 mg capsule See Rx Instructions .Route 0 09/22/23 .COMPLEX #30 caps wheelchair #1 ea 10/08/23 testosterone cypionate 200 mg/mL 200 mg IM .Every othe r week #1 ea 01/06/24 intramuscular kit albuterol sulfate 90 mcg/actuation 2 puff inhalation Q 6H PRN 02/23/24 aerosol inhaler Shortness Of Breath #8.5 gra ms hydralazine 25 mg tablet 25 mg PO TID #60 tabs metoprolol succinate 50 mg 50 mg PO DAILY #30 tabs 03/07 tablet,extended release 24 hr nifedipine 90 mg tablet,extended 90 mg PO DAILY #30 ta bs 02/23/24 release trazodone 100 mg tablet See Rx Instructions .Route 1 04/24/23 .COMPLEX #30 tabs buspirone 10 mg tablet See Rx Instructions .Route 0 07/28/24 .COMPLEX #120 tabs levothyroxine 88 mcg tablet See Rx Instructions .Route 07/28/24 .COMPLEX #90 tabs memantine 10 mg tablet See Rx Instructions .Route 0 07/28/24 .COMPLEX #30 tabs mirtazapine 15 mg tablet See Rx Instructions .Route 0 07/28/24 .COMPLEX #30 tabs tamsulosin 0.4 mg capsule See Rx Instructions .Route 0 07/28/24 .COMPLEX #60 caps Allergies Allergy/AdvReac Type Severity Reaction Status Date / Time No Known Allergies Allergy Verified 07/28/24 13:28 PFSH ED PFSH: Medical History Enrolled in chronic care management End stage renal disease on dialysis Renal cyst Colon polyp Anemia BPH NOS w ur obs/LUTS Hypogonadism Erectile dysfunction Chronic migraine Hypothyroidism HTN (hypertension) AAA (abdominal aortic aneurysm) Atrial fibrillation Depression Surgical History Previous back surgery History of pancreatic surgery Biopsy S/P cholecystectomy History of loop recorder Family History Father , 67 y/o Heart disease Myocardial infarction Mother Arthritis Depression Anxiety Hypertension Hearing loss Social History Smoking and tobacco/nicotine status: never used tobacco/nicotine Second hand smoke exposure: Yes Alcohol intake: former Substance/Drug Use: unknown Adopted: No Caregiver/support person: No Lives independently: Yes Marital status: Current occupational status: retired Physical Exam Const: COMMON NORMALS: no acute distress GENERAL APPEARANCE: cooperative and comfortable ORIENTATION/CONSCIOUSNESS: Yes awake HENMT: COMMON NORMALS: normocephalic, atraumatic and hearing grossly normal bilaterally HEAD & SCALP: normocephalic and atraumatic Resp: COMMON NORMALS: normal respiratory effort, No retractions and No use of accessory muscles AUSCULTATION: crackles Cardio: COMMON NORMALS: regular rate, regular rhythm and No murmurs present (Cardio) RATE: regular rate RHYTHM: regular rhythm GI: COMMON NORMALS: Soft to palpation and No hepatosplenomegaly present AUSCULTATION: Yes normoactive bowel sounds PALPATION: Yes Soft to palpation, No Tenderness to palpation present (GI), No Guarding due to palpation present (GI) and Yes No hepatosplenomegaly present Extremity: COMMON NORMALS: normal to inspection, capillary refill normal, no c lubbing, cyanosis or edema, no calf tenderness and no pedal edema Skin: COMMON NORMALS: no rashes or lesions noted GENERAL SKIN EXAM: no rashes or lesions noted Course Vital Signs: Vital signs: Vital Signs Temperature 98.1 F 09/14/24 10:17 Pulse Rate 82 09/14/24 10:50 Respiratory Rate 16 09/14/24 10:50 Blood Pressure 153/78 09/14/24 10:50 Pulse Oximetry 97 09/14/24 10:50 Oxygen Delivery Me thod Room Air 09/14/24 10:50 MDM - General Adult Medical Decision Making Patient is on hospice. He is progressing which is not unexpected he is likely getting uremic from his lack of dialysis. At this point there is not really any interventions that would be required or recommended. Talk to the family they do want to leave him on hospice. I talked to the hospice caregivers they had been planning to go out and see him and advised the patient to wait at home they would come and see him. Hospice is planning on making it him daily around. Long discussion with the regarding goals of care. At this point I would not recommend any fluids as this will likely prolong his discomfort and may even add to it without the dialysis he will not be able to mobilize the fluid and may develop fluid overload and have increasing air hunger. He is relatively comfortable now although he is moderately confused she does not have any specific complaints at the moment. In conjunction with hospice we will discharge him home and they will see him at his home later today and have lengthier goals of care conversations and adjust medications. Medical Records I reviewed the patient's medical records. Lab Data I reviewed the patient's lab results. Radiology Impressions Chest X-Ray 09/14/24 10:16 IMPRESSION: Stable chest without acute abnormality. No radiology studies performed this visit Discharge Plan Discharge Patient Disposition: Home Clinical Impression: End stage kidney disease, Uremia, Hospice care patient Condition: Stable Prescriptions: No Action nitroglycerin [Nitrostat] 0.4 mg tablet, sublingual 0.4 mg SUBLINGUAL DIRECTED PRN (Reason: Chest Pain) Qty: 25 3RF loperamide [Imodium A-D] 2 mg tablet 2 mg PO Q6H PRN (Reason: loose stool) Qty: 30 0RF diphenoxylate-atropine [Lomotil] 2.5-0.025 mg tablet 1 tab PO BID PRN (Reason: diarrhea) Qty: 30 1RF gabapentin 300 mg capsule See Rx Instructions .ROUTE .COMPLEX Qty: 30 11RF Dose Instruction: TAKE ONE CAPSULE BY MOUTH EVERY DAY Rx Instructions: TAKE ONE CAPSULE BY MOUTH EVERY DAY hydralazine 25 mg tablet 25 mg PO TID Qty: 60 5RF metoprolol succinate 50 mg tablet extended release 24 hr 50 mg PO DAILY Qty: 30 5RF nifedipine 90 mg tablet extended release 90 mg PO DAILY Qty: 30 5RF trazodone 100 mg tablet See Rx Instructions .ROUTE .COMPLEX Qty: 30 5RF Dose Instruction: TAKE ONE TABLET BY MOUTH At Bedtime Rx Instructions: TAKE ONE TABLET BY MOUTH At Bedtime albuterol sulfate 90 mcg/actuation HFA aerosol inhaler 2 puff INHALATION Q6H PRN (Reason: Shortness Of Breath) Qty: 8.5 2RF levothyroxine 88 mcg tablet See Rx Instructions .ROUTE .COMPLEX Qty: 90 0RF Dose Instruction: TAKE 1 TABLET BY MOUTH DAILY Rx Instructions: TAKE 1 TABLET BY MOUTH DAILY buspirone 10 mg tablet See Rx Instructions .ROUTE .COMPLEX Qty: 120 2RF Dose Instruction: TAKE 2 TABLETS BY MOUTH TWICE DAILY; needs appointment FOR more refills Rx Instructions: TAKE 2 TABLETS BY MOUTH TWICE DAILY; tamsulosin 0.4 mg capsule See Rx Instructions .ROUTE .COMPLEX Qty: 60 2RF Dose Instruction: TAKE ONE CAPSULE BY MOUTH TWICE DAILY Rx Instructions: TAKE ONE CAPSULE BY MOUTH TWICE DAILY mirtazapine 15 mg tablet See Rx Instructions .ROUTE .COMPLEX Qty: 30 2RF Dose Instruction: TAKE ONE TABLET BY MOUTH EVERY NIGHT AT BEDTIME Rx Instructions: TAKE ONE TABLET BY MOUTH EVERY NIGHT AT BEDTIME memantine 10 mg tablet See Rx Instructions .ROUTE .COMPLEX Qty: 30 2RF Dose Instruction: TAKE ONE TABLET BY MOUTH EVERY MORNING Rx Instructions: TAKE ONE TABLET BY MOUTH EVERY MORNING (DME) wheelchair See Rx Instructions .Route .MEDSUPPLY Qty: 1 0RF Rx Instructions: As directed, length of need 99 testosterone cypionate 200 mg/mL kit 200 mg IM .Every other week Qty: 1 5RF Colace 100 mg capsule 100 mg PO BID Qty: 14 0RF Discharge Orders: Discharge ED (Routine); Ordered 09/14/24 Ordered By: Lebron Jenkins Referrals: Amparo Nieves FNP [Primary Care Provider, Family Practice] Patient Instructions: Altered Mental Status (ED), Opioid Safety, Pain Management Print Language: Maori Coding Level of Care Code ED Machine Operator Transplanter for Maria Antonia Brambila
[2024-09-14 10:50] VITALS: BP 153/78; PULSE 82; RESP 16; O2SAT 97
[2024-09-14 11:40] LABS: Hematocrit 31.4 % (37-53); Lymphocytes # 0.6 10^3/uL (0.8-4.8); Lymphocytes % 17.9 %; Mean Corpuscular HGB Conc 33.1 g/dL (30-55); Mean Corpuscular Hemoglobin 34.7 pg (27-33); Mean Corpuscular Volume 104.7 fl (82-101); Mean Platelet Volume 11.5 fL (7.4-10.4); Monocytes # 0.4 10^3/uL (0.2-0.9); Monocytes % 10.6 %; Nucleated Red Blood Cells % 0 %; Platelet Count 120 10^3/cmm (157-399); Red Cell Distribution Width 14.9 % (12.1-15.1); White Blood Count 3.29 10^3/uL (3.29-11.43)
[2024-09-14 11:55] LABS: Alanine Aminotransferase 14 U/L (0-41); Albumin Level 2.9 g/dL (3.5-5.2); Alkaline Phosphatase 71 U/L (40-130); Anion Gap 26.1 (5-19); Aspartate Amino Transferase 16 U/L (0-40); Calcium 8.2 mg/dL (8.5-10.5); Carbon Dioxide 14 mmol/L (22-29); Chloride 91 mmol/L (98-107); Creatine Phosphokinase 161 U/L (39-308); Creatinine Clr Calc Pharmacy 2.8643; Globulin 2.7 g/dL (1.3-4.6); Glucose 77 mg/dL (65-115); Osmolality Calculated 292 mOsm/kg (285-295); Sodium 124 mmol/L (136-145); Total Bilirubin 0.3 mg/dL (0.15-1.2); Total Protein 5.6 g/dL (6.6-8.7)
[2024-09-14 12:00] LABS: Blood Urea Nitrogen 111 mg/dL (8-23); Potassium 7.1 mmol/L (3.5-5.1)
[2024-09-14 12:47] VITALS: BP 140/67; PULSE 80; O2SAT 92
[2024-09-14 13:26] VITALS: BP 143/71; PULSE 76; O2SAT 94
== END 2024-09-14 16:03 | disposition home or self-care (01) ==
PROVIDERS: Emergency Provider Family Medicine; PCP Nurse Practitioner Family
DX: I12.0 Hypertensive chronic kidney disease with stage 5 chronic kidney disease or end stage renal disease (principal); N18.6 End stage renal disease; Z51.5 Encounter for palliative care
CPT/HCPCS: 36415; 71045; 80053; 82550; 85025; 93005; 99285